=== PATIENT | female | born 1950 ===

== ENCOUNTER 2020-04-22 00:24 | Inpatient (IN) | payer MEDICARE ==
[2020-04-22] MEDS ORDERED: Albuterol 200 PUFF (6.7GM INHALER) ONE (01:14)
[2020-04-22] MEDS ORDERED: Azithromycin 500 MG VIAL ONE (02:32)
[2020-04-22 03:01] LABS: SARS-CoV-2 NAA Rapid Test DETECTED (NotDetected)
[2020-04-22] MEDS ORDERED: Albuterol 200 PUFF (6.7GM INHALER) INH PRN (04:54)
[2020-04-22] MEDS ORDERED: Ondansetron ODT 4 MG TAB SL PRN (05:00)
[2020-04-22] MEDS ORDERED: Acetaminophen 325 MG TAB PO PRN (05:00)
[2020-04-22] MEDS ORDERED: Ondansetron PF 4 MG/2 ML Vial IVP PRN (05:00)
[2020-04-22 05:40] VITALS: BMI 30.7
[2020-04-22 07:17] LABS: Troponin I 0.013 ng/mL (< 0.028)
--- NOTE | 2020-04-22 09:36 | CT ---
PRELIMINARY REPORT/[facility]/AFTER HOURS PROCEDURE CTA CHEST WITH INTRAVENOUS CONTRAST: CLINICAL HISTORY: A 70-year-old female patient presents to the ER as a transfer from the [facility] for COVID-1 9 pneumonia. The patient reports she has been having some coughing, shortness of breath, fever, body aches, chills for the last 2 to 3 days. TECHNIQUE: Axial CTA images of the chest with intravenous contrast. Three-dimensional MIP/volume rendered reform ations were performed. CONTRAST: With Isovue. COMPARISON: None provided. FINDINGS: PULMONARY ARTERIES: There is no intraluminal filling defect suspicious for PE. AORTA: No thoracic aortic aneurysm or dissection. LUNGS: Fairly extensive ground glass density throughout the lungs right greater than left compatible with the patient's history of Covid pneumonia. Some areas of mucus plugging also noted in the left lower lobe. PLEURAL SPACES: No pleural effusion. No pneumothorax. HEART AND MEDIASTINUM: No cardiomegaly. No significant pericardial effusion. LYMPH NODES: No lymphadenopathy. A few small calcified lymph nodes are noted in the right hilum. BONES: No focal osseous abnormality or acute fracture. CHEST WALL AND UPPER ABDOMEN: Images through the upper abdomen are unremarkable. The chest wall is un remarkable. Postsurgical changes status post fusion in the thoracic spine. IMPRESSION: Negative for pulmonary emboli. Airspace disease compatible with the patient's history of COVID pneum onia. ELECTRONICALLY SIGNED BY: Morris Camargo MD Apr 22, 2020 2:54:59 AM CDT This report is intended for review by the ordering physician only, in accordance of law. If you recei ve this report in error, please call [facility] at [phone]. FINAL REPORT EMERGENT AFTER HOURS CT PULMONARY ANGIOGRAM WITH IV CONTRAST AND 3D MIP RECONSTRUCTIONS: IMPRESSION: I agree with the preliminary interpretation. CODE QA POS: REFUGIO
--- NOTE | 2020-04-22 11:04 | PDOC.HHP ---
Hospitalist HPI - History of Present Illness SOB History of Present Illness: 70 YO F with a PMH of lymphoma, HLD who presented with complaints of feeling unwell, SOB, cough and fever x 1 week. Pt does not know if she came in contact w any COVID positive person but says she lives with her mother and interacts with her daughter and grand daughter (a health care worker) all who are symptomless but yet to take a COVID test. Pt has been having intermittent low grade fever, cough, ROSALES, diarrhea and SOB. Due to worsening symptoms, she was taken the ER and as noted to be hypoxic. CTA showed no PE but was positive for COVID PNA. She was then transferred to this hospital to further mgt. Hospitalist ROS - Review of Systems Constitutional: reports: fever, chills, sweats, weakness, malaise Eyes: denies: pain, vision change, conjunctivae inflammation, eyelid inflammation, redness, other ENT: denies: ear pain, ear discharge, nose pain, nose discharge, nose congestion, mouth pain, mouth swelling, throat pain, throat swelling, other Respiratory: reports: cough, dry, shortness of breath Cardiovascular: reports: chest pain Gastrointestinal: reports: nausea, diarrhea. denies: vomiting, abdominal pain, constipation, melena, hematochezia, other Musculoskeletal: denies: neck pain, shoulder pain, arm pain, back pain, hand pain, leg pain, foot pain, other Skin: denies: rash, lesions, josé, bruising, other Neurological: denies: weakness, numbness, incoordination, change in speech, confusion, seizures, other Hospitalist History - Past Medical History Source: patient Pulmonary: reports: high cholesterol Endocrine: reports: Diabetes - Past Surgical History Past Surgical History: reports: Other (Back surgery) - Family History Family History: reports: no pertinent history - Social History Smoking Status: Never smoker Alcohol: reports: None Drugs: reports: none Living Situation: With Family Domestic Violence: Negative Activity level: independent ambulation - Exam General Appearance: NAD, awake alert Eye: PERRL, anicteric sclera ENT: normocephalic atraumatic, no oropharyngeal lesions Neck: supple, symmetric, no JVD, no thyromegaly Heart: RRR, no murmur, no gallops, no rubs, normal peripheral pulses Respiratory: CTAB, no wheezes, no rales, no ronchi Gastrointestinal: soft, non-tender, non-distended, normal bowel sounds Extremities: no cyanosis, no clubbing, no edema Skin: no lesions, no rashes Neurological: cranial nerve grossly intact, no focal deficits Musculoskeletal: normal strength, no muscle wasting Psychiatric: normal affect, normal behavior, A&O x 3 Hospitalist Results - Labs Lab results: Troponin I 0.013 ng/mL (< 0.028) 04/22/20 06:39 Hospitalist H&P A/P - Problem (1) COVID-19 Code(s): U07.1 - COVID-19 Status: Acute Assessment and Plan: New diagnosis. Will cont abx, steroids, Vit C and D, Zinc, antitussives and nebs. Monitor for symp improvement. (2) Acute respiratory failure due to COVID-19 Code(s): U07.1 - COVID-19; J96.00 - ACUTE RESPIRATORY FAILURE, UNSP W HYPOXIA OR HYPERCAPNIA Status: Acute Assessment and Plan: Needing a lot of O2 at this time. Will cont O2, cont steroids and nebs. Encourage proning. Will consult Pulm if resp status gets worse. (3) Diabetes Code(s): E11.9 - TYPE 2 DIABETES MELLITUS WITHOUT COMPLICATIONS Status: Acute Qualifiers: Diabetes mellitus type: type 2 Diabetes mellitus complication status: without complication Assessment and Plan: Will expect BG to go higher. Will cover with SSI. (4) History of lymphoma Code(s): Z85.79 - PRSNL HX OF MALIG NEOPLM OF LYMPHOID, HEMATPOETC & REL TISS Status: Acute Assessment and Plan: No new issues. Pt can f/u with her Oncologist when d/c. (5) HLD (hyperlipidemia) Code(s): E78.5 - HYPERLIPIDEMIA, UNSPECIFIED Status: Acute Qualifiers: Hyperlipidemia type: unspecified Qualified Code(s): E78.5 - Hyperlipidemia, unspecified Assessment and Plan: Cont statins. (6) Diarrhea Code(s): R19.7 - DIARRHEA, UNSPECIFIED Status: Acute Assessment and Plan: Monitor for now, will send for stool tests. - Plan Plan: PPx: Lovenox. CODE: FULL. Dispo: Admit as outpt.
[2020-04-22] MEDS ORDERED: Fioricet 325/50/40 mg Tablet PO PRN (11:07)
[2020-04-22] MEDS ORDERED: Melatonin 3 MG TAB PO PRN (11:58)
[2020-04-22] MEDS: Piperacillin/Tazobactam 3.375 GM in Sodium Chloride 0.9% 100 ML IVPB SCH ×2 (14:34→20:13)
[2020-04-22] MEDS: Benzonatate 100 MG CAP PO SCH (14:35)
[2020-04-22] MEDS ORDERED: Iopamidol-370 76% 500 ML 1 ML ONE (15:19)
[2020-04-22 21:58] LABS: Hemoglobin 10.4 g/dL (12.0-16.0); Mean Corpuscular HGB CONC 35.1 g/dL (32.0-36.0); Mean Corpuscular Hemoglobin 34.7 pg (27.0-31.0); Mean Corpuscular Volume 98.9 fL (78.0-98.0); RBC Distribution Width 11.4 % (11.5-14.5); White Blood Cell (WBC) Count 3.6 thou/uL (4.8-10.8)
[2020-04-22 22:07] LABS: ALT (SGPT) 14 U/L (8-55); AST (SGOT) 32 U/L (5-34); Albumin 3.5 g/dL (3.4-4.8); Alkaline Phosphatase 68 U/L (40-110); Anion Gap 15 mmol/L (10-20); BUN (Urea Nitrogen) 17 mg/dL (9.8-20.1); Bilirubin, Total 0.3 mg/dL (0.2-1.2); Calc. Creatinine Clearance 70 mL/min (70-130); Calcium 8.8 mg/dL (7.8-10.44); Carbon Dioxide 24 mmol/L (23-31); Chloride 103 mmol/L (98-107); Estimated GFR-MDRD 64; Globulin 2.3 g/dL (2.4-3.5); Glucose 167 mg/dL (83-110); Magnesium 1.9 mg/dL (1.6-2.6); Potassium 3.3 mmol/L (3.5-5.1); Protein, Total 5.8 g/dL (6.0-8.3); Sodium 139 mmol/L (136-145)
[2020-04-22 22:08] LABS: Lactic Acid 1.9 mmol/L (0.5-2.2)
[2020-04-22 22:11] LABS: #Lymphocytes 0.3 thou/uL (1.20-3.40); #Monocytes 0.3 thou/uL (0.11-0.59); %Eosinophils 0.1 % (0.0-10.0); %Lymphocytes 9.1 % (21.0-51.0); %Monocytes 8.4 % (0.0-10.0); %Neutrophils 82.5 % (42.0-75.0); Mean Platelet Volume 9.8 fL (7.4-10.4); Platelet Count 53 thou/uL (130-400); Platelet Morphology Comment Appears Decreased
[2020-04-22] MEDS ORDERED: REMDESIVIR (EUA) 200 MG in Sodium Chloride 0.9% 250 ML 210 ML IV SCH (23:00)
[2020-04-22 23:11] LABS: Actual Bicarbonate (HCO3a) 25.8 mEq/L (22-28); Base Excess (BEa) 1.5 mEq/L (-2.0 to +3.0); CO2 Tension 39.4 mmHg (35.0-45.0); Calcium, Ionized (arterial) 1.21 mmol/L (1.12-1.30); Carboxyhemoglobin (COHb) 0.1 gm% (0.0-3.0); Hemoglobin (Hb) 10.5 g/dL (12.0-16.0); Potassium - ABG Lab 3.85 mmol/L (3.70-5.30); pH, Arterial 7.43 (7.35-7.45)
[2020-04-22 23:12] LABS: O2 Tension (PaO2), arterial 50.3 mmHg (> 70.0); Puncture Site RRA
[2020-04-23] MEDS: Benzonatate 100 MG CAP PO SCH ×4 (01:04→20:29)
[2020-04-23] MEDS: Enoxaparin Sodium 60 MG/0.6 ML SYRINGE SC SCH ×3 (01:05→22:52)
[2020-04-23] MEDS: metFORMIN 500 MG TAB PO SCH ×3 (02:56→20:29)
[2020-04-23] MEDS: Piperacillin/Tazobactam 3.375 GM in Sodium Chloride 0.9% 100 ML IVPB SCH ×3 (02:59→13:36)
[2020-04-23 04:05] LABS: #Lymphocytes 0.4 thou/uL (1.20-3.40); #Monocytes 0.3 thou/uL (0.11-0.59); #Neutrophils 3.3 thou/uL (1.40-6.50); %Basophils 0.4 % (0.0-1.0); %Eosinophils 0.1 % (0.0-10.0); %Lymphocytes 9.2 % (21.0-51.0); %Monocytes 6.4 % (0.0-10.0); %Neutrophils 83.9 % (42.0-75.0); Hemoglobin 10.5 g/dL (12.0-16.0); Mean Corpuscular HGB CONC 34.3 g/dL (32.0-36.0); Mean Corpuscular Hemoglobin 34.2 pg (27.0-31.0); Mean Corpuscular Volume 99.9 fL (78.0-98.0); Mean Platelet Volume 10.1 fL (7.4-10.4); Platelet Count 56 thou/uL (130-400); RBC Distribution Width 11.4 % (11.5-14.5); Red Blood Cell (RBC) Count 3.07 mill/uL (4.20-5.40); White Blood Cell (WBC) Count 3.9 thou/uL (4.8-10.8)
[2020-04-23 04:17] LABS: ALT (SGPT) 19 U/L (8-55); AST (SGOT) 34 U/L (5-34); Albumin 3.4 g/dL (3.4-4.8); Alkaline Phosphatase 68 U/L (40-110); Anion Gap 16 mmol/L (10-20); BUN (Urea Nitrogen) 16 mg/dL (9.8-20.1); Bilirubin, Total 0.3 mg/dL (0.2-1.2); Calc. Creatinine Clearance 74 mL/min (70-130); Calcium 8.9 mg/dL (7.8-10.44); Carbon Dioxide 26 mmol/L (23-31); Chloride 104 mmol/L (98-107); Estimated GFR-MDRD 69; Globulin 2.4 g/dL (2.4-3.5); Glucose 142 mg/dL (83-110); Potassium 3.5 mmol/L (3.5-5.1); Protein, Total 5.8 g/dL (6.0-8.3); Sodium 142 mmol/L (136-145)
[2020-04-23] MEDS ORDERED: Non-Formulary Item 1 EACH (Ascorbic Acid [Vitamin C] 1,000 MG Tablet) PO SCH (09:00)
[2020-04-23] MEDS ORDERED: Dexamethasone 20 MG/5 ML VIAL SLOW IVP SCH (09:00)
[2020-04-23] MEDS ORDERED: BIOTIN 5000 MCG PO SCH (09:00)
[2020-04-23] MEDS: Furosemide 20 MG/2 ML VIAL SLOW IVP SCH (09:35)
[2020-04-23] MEDS: Atorvastatin Calcium 40 MG TAB PO SCH (09:35)
[2020-04-23] MEDS: Citalopram 20 MG TAB PO SCH (09:35)
[2020-04-23] MEDS: Ascorbic Acid 500 mg Chewable Tablet PO SCH (09:35)
[2020-04-23] MEDS: Stress 600 With Zinc 1 TAB PO SCH (09:41)
[2020-04-23] MEDS: Cholecalciferol (Vitamin D3) 400 UNITS TAB PO SCH (09:41)
[2020-04-23] MEDS: Zinc Sulfate 220 MG CAP PO SCH (09:41)
[2020-04-23] MEDS: Dexamethasone 10 MG/ML VIAL SLOW IVP SCH (10:06)
--- NOTE | 2020-04-23 15:22 | PDOC.HOSPP ---
- Subjective Encounter Date: 04/23/20 Encounter Time: 15:21 Subjective: Rosenda Muse is a 70-year-old woman with a history of CLL admitted to the hospital for COVID-19 pneumonia. She currently is in respiratory failure and is requiring O2 supplementation via high flow. Pulmonary consult appreciated. We will continue O2 supplementation here and wean as tolerated. Prognosis is guarded at best. - Objective Vital Signs & Weight: Vital Signs (12 hours) Pulse Resp Pulse Ox 04/23/20 08:00 98 04/23/20 07:08 83 21 H 95 Weight Weight 167 lb 9.6 oz Most Recent Monitor Data Heart Rate from ECG 95 NIBP 108/62 NIBP BP-Mean 77 Respiration from ECG 18 SpO2 99 I&O: 04/22/20 04/23/20 04/24/20 07:59 06:59 06:59 Intake Total 830 Output Total 800 Balance 30 Result Diagrams: 04/23/20 03:40 04/23/20 03:40 Additional Labs: Accuchecks 04/23/20 04/23/20 10:36 06:12 POC Glucose 109 H 121 H Radiology Reviewed by me: Yes EKG Reviewed by me: Yes Hospitalist ROS - Review of Systems Constitutional: reports: fever, weakness Respiratory: reports: cough, shortness of breath, SOB with excertion, sputum, wheezing Cardiovascular: reports: edema Gastrointestinal: reports: nausea - Medication Medications: Active Medications Generic Name Dose Route Start Last Admin Trade Name Freq PRN Reason Stop Dose Admin Ascorbic Acid 1,000 mg 04/23/20 09:00 04/23/20 09:35 Ascorbic Acid 500 Mg Chewable Tablet PO 1,000 mg DAILY MADELINE Administration Atorvastatin Calcium 40 mg 04/23/20 09:00 04/23/20 09:35 Atorvastatin Calcium 40 Mg Tab PO 40 mg DAILY MADELINE Administration Benzonatate 100 mg 04/22/20 15:00 04/23/20 13:37 Benzonatate 100 Mg Cap PO 100 mg TID MADELINE Administration Cholecalciferol 2,000 units 04/23/20 09:00 04/23/20 09:41 Cholecalciferol (Vitamin D3) 400 Units Tab PO 2,000 units DAILY MADELINE Administration Citalopram Hydrobromide 40 mg 04/23/20 09:00 04/23/20 09:35 Citalopram 20 Mg Tab PO 40 mg DAILY MADELINE Administration Dexamethasone 6 mg 04/23/20 09:00 04/23/20 10:06 Dexamethasone 10 Mg/Ml Vial SLOW IVP 6 mg DAILY MADELINE Administration Enoxaparin Sodium 60 mg 04/22/20 21:00 04/23/20 09:35 Enoxaparin Sodium 60 Mg/0.6 Ml Syringe SC 60 mg 0900,2100 MADELINE Administration Furosemide 20 mg 04/23/20 09:00 04/23/20 09:35 Furosemide 20 Mg/2 Ml Vial SLOW IVP 20 mg DAILY MADELINE Administration Metformin HCl 500 mg 04/22/20 21:00 04/23/20 09:35 Metformin 500 Mg Tab PO 500 mg BID MADELINE Administration Multivitamins/Zinc 1 tab 04/23/20 09:00 04/23/20 09:41 Stress 600 With Zinc 1 Tab PO 1 tab DAILY MADELINE Administration Zinc Sulfate 220 mg 04/23/20 09:00 04/23/20 09:41 Zinc Sulfate 220 Mg Cap PO 220 mg DAILY MADELINE Administration - Exam General Appearance: awake alert, ill appearing Eye: PERRL ENT: normocephalic atraumatic, no oropharyngeal lesions, dry oral mucosa Neck: supple, symmetric, no lymphadenopathy Heart: RRR Respiratory: normal chest expansion, tachypneic, wheezes Gastrointestinal: soft, non-tender, non-distended, normal bowel sounds, no palpable masses, no hepatomegaly, no splenomegaly Musculoskeletal: normal tone, normal strength, generalized weakness Psychiatric: normal affect, A&O x 3 Hosp A/P (1) Acute respiratory failure due to COVID-19 Code(s): U07.1 - COVID-19; J96.00 - ACUTE RESPIRATORY FAILURE, UNSP W HYPOXIA OR HYPERCAPNIA Status: Acute Plan: She is requiring high flow nasal cannula now. We will continue this. (2) COVID-19 Code(s): U07.1 - COVID-19 Status: Acute Plan: Continue supportive care as above. (3) Diabetes Code(s): E11.9 - TYPE 2 DIABETES MELLITUS WITHOUT COMPLICATIONS Status: Acute Qualifiers: Diabetes mellitus type: type 2 Diabetes mellitus complication status: wit hout complication (4) Diarrhea Code(s): R19.7 - DIARRHEA, UNSPECIFIED Status: Acute (5) History of lymphoma Code(s): Z85.79 - PRSNL HX OF MALIG NEOPLM OF LYMPHOID, HEMATPOETC & REL TISS Status: Acute - Plan respiratory therapy, incentive spirometry #1. Acute hypoxic respiratory failure secondary to Covid pneumonia. She currently is on high flow nasal cannula. We will continue this for now. Her prognosis is guarded at best. 2. COVID-19 pneumonia. Continue supportive care, IV empiric antibiotics, zinc sulfate and vitamin C. 3. History of chronic lymphocytic leukemia. This is chronic. She appears to be in remission.
--- NOTE | 2020-04-23 18:33 | CON ---
DATE OF CONSULTATION: CONSULT REASON: COVID infection. HISTORY OF PRESENT ILLNESS: A 70-year-old, history of type 2 diabetes, lymphoma with prior bone marrow transplant, who has had respiratory symptoms for the past week approximately. She was admitted on the . At that time, it was stated that she was sick for 2 or 3 days. On arrival, she was on a non-rebreathing Venti mask and given inhalers Rocephin, Decadron. Initial findings, BP 120/50, pulse 98, temperature 99.3, O2 saturation 94 on 4 L. she was tachypneic, appeared uncomfortable. There was rhonchi in upper lobes and lower lobes as well. Heart exam normal. Other findings on admission, white cell count 3.6, hemoglobin 10.4, platelets 53, with 82% neutrophils. D-dimer 2.59. A pH of 7.43, pCO2 of 39, PO2 of 50. Sodium 139, creatinine 0.87. Liver profile normal. Albumin 3.5. SARS-COV RNA PCR positive. Chest CT with airspace disease, bilateral, quite extensive ground-glass densities throughout the lungs, right greater than left side. She is receiving inhalers, Decadron, and remdesivir. She also is on Zosyn. Currently she is awake. She is sitting in bed, lost her cellphone for some reason, feels more comfortable. No headaches. Mild dyspnea. Some cough. No abdominal pain. Voiding on her own at the bedside commode. No back pain, no joint symptoms. PAST MEDICAL HISTORY: Includes type 2 diabetes, lymphoma following bone marrow transplant, hyperlipidemia, has had laminectomy in the past. FAMILY HISTORY: Not pertinent. SOCIAL HISTORY: Never a smoker, lives in [place] with her mother. PHYSICAL EXAMINATION: VITAL SIGNS: Temperature max 98.3, BP 130/80, heart rate 109, respiratory rate 26, O2 saturation 98. She is on high-flow nasal cannula, it looks like 60 L/minute. LUNGS: With few scattered inspiratory crackles. No wheezing. HEENT: Ocular movements conjugate. Oral cavity somewhat dry. HEART: S1, S2, regular rate. ABDOMEN: Soft, not distended or tender. No ascites. No bladder distention. EXTREMITIES: No joint inflammatory activity. No edema. Moves all extremities equally. NEUROLOGIC: Oriented. Follows commands. LABORATORY DATA: The white cell count is now 3.9, hemoglobin 10.5, platelets 56,000, 82% neutrophils. Lymphocyte count 0.4. The CRP is down to 3.35. The ferritin is 4300, has not been repeated. ASSESSMENT: History of lymphoma, in remission, following bone marrow transplant a few years ago, type 2 diabetes with severe COVID infection, on high-flow nasal cannula O2. This is the 8th, 9th day of illness. She is on remdesivir and Decadron. She is on Zosyn as well as, probably can be discontinued. She is at high risk for further deterioration and we will continue monitoring daily inflammatory markers. She is on enoxaparin b.i.d. Job ID: [id number]
--- NOTE | 2020-04-23 20:52 | CON ---
DATE OF CONSULTATION: 04/23/2020 HISTORY OF PRESENT ILLNESS: The patient is a 70-year-old female, who presented to the [facility] Emergency Room with complaints of increasing shortness of breath, cough, and fever. While there, she was requiring high-flow non- rebreather face mask. COVID test was done and was reported to be positive. The patient's contact most likely is from the family, one of whom is a healthcare worker. The patient was transferred here and following ER assessment was initially admitted to the medical floor. She had already received steroids and azithromycin. She was initially on nasal oxygen, but during the late afternoon yesterday showed worsening saturation, especially with cough and had a slow recovery with addition of further oxygen. She was subsequently moved to the intensive care unit. Over the evening, she has been intermittently switched from BiPAP 10/5 with high-flow nasal cannula. SOCIAL HISTORY: The patient is a 70-year-old female. She does not smoke. ALLERGIES: SHE HAS NO REPORTED MEDICATION ALLERGIES. HOME MEDICATIONS: Include, 1. Metformin 500 mg b.i.d. 2. Atorvastatin 40 mg daily. 3. Citalopram 40 mg daily. PAST MEDICAL HISTORY: Remarkable for lymphoma, treated in the past with chemo and radiation therapy for cure. She has a history of diabetes and dyslipidemia. REVIEW OF SYSTEMS: Remarkable as above, otherwise negative. PHYSICAL EXAMINATION: VITAL SIGNS: Current blood pressure 117/66, heart rate 107. She is currently on high-flow nasal cannula 60 L at 90%, maintaining saturation of 98%. GENERAL: She is awake, but slightly sleepy. Answers questions appropriately. HEENT: She has no adenopathy. She has no oropharyngeal Meseret. LUNGS: Bilateral crackles without wheezes. HEART: Regular rate and rhythm. ABDOMEN: Soft. There is no organomegaly. She is obese. EXTREMITIES: Show no edema. She has no cyanosis or clubbing. She has no cords or tenderness. LABORATORY DATA: White count 3900, hemoglobin is 10.5 with hematocrit 30.6, and platelet count of 56,000. Chemistries include sodium 142, potassium 2.5, chloride 104, CO2 is 26, BUN 16, creatinine 0.6, glucose ranging from 120-170. Ferritin is high. Liver tests are negative. CRP is 3.5, albumin is 3.4. Her CT shows infiltrative findings consistent with COVID pneumonia. There is no pneumothorax. There is no effusion or mass. IMPRESSION: 1. COVID pneumonia with impending respiratory failure. The patient is 70 years old and has diabetes as well as a history of lymphoma. Although her lymphoma is in remission, this portends at least some degree of immune suppression. She is requiring high-flow nasal oxygen at 90% at this time and hence fairly limited reserve. 2. Diabetes. 3. History of lymphoma. PLAN: The patient is admitted to the intensive care unit. She is receiving remdesivir as well as other therapies directed at her COVID infection. We will continue current FiO2 support with plans to provide intubation if there is any worsening. We would certainly want to converse with the family before we head down that path. Additional interventions will be based on her clinical course in the Pulmonary Service. We will continue to follow. Job ID: [id number] [facility]
[2020-04-23] MEDS: REMDESIVIR (EUA) 100 MG in Sodium Chloride 0.9% 250 ML 230 ML IV SCH (22:54)
[2020-04-24 04:02] LABS: ALT (SGPT) 16 U/L (8-55); AST (SGOT) 28 U/L (5-34); Albumin 3.2 g/dL (3.4-4.8); Alkaline Phosphatase 60 U/L (40-110); Anion Gap 15 mmol/L (10-20); BUN (Urea Nitrogen) 23 mg/dL (9.8-20.1); Bilirubin, Total 0.4 mg/dL (0.2-1.2); CRP (Inflammatory) 5.07 mg/dL (= or < 0.5); Calc. Creatinine Clearance 80 mL/min (70-130); Calcium 8.2 mg/dL (7.8-10.44); Carbon Dioxide 26 mmol/L (23-31); Chloride 99 mmol/L (98-107); Estimated GFR-MDRD 75; Globulin 2.1 g/dL (2.4-3.5); Glucose 146 mg/dL (83-110); Potassium 3.2 mmol/L (3.5-5.1); Protein, Total 5.3 g/dL (6.0-8.3); Sodium 137 mmol/L (136-145)
[2020-04-24] MEDS: Citalopram 20 MG TAB PO SCH (09:24)
[2020-04-24] MEDS: metFORMIN 500 MG TAB PO SCH ×2 (09:24→21:21)
[2020-04-24] MEDS: Stress 600 With Zinc 1 TAB PO SCH (09:24)
[2020-04-24] MEDS: Benzonatate 100 MG CAP PO SCH ×3 (09:24→21:21)
[2020-04-24] MEDS: Zinc Sulfate 220 MG CAP PO SCH (09:24)
[2020-04-24] MEDS: Cholecalciferol (Vitamin D3) 400 UNITS TAB PO SCH (09:25)
[2020-04-24] MEDS: Atorvastatin Calcium 40 MG TAB PO SCH (09:25)
[2020-04-24] MEDS: Enoxaparin Sodium 60 MG/0.6 ML SYRINGE SC SCH (11:31)
--- NOTE | 2020-04-24 11:49 | PRG ---
DATE OF SERVICE: 04/24/2020 SUBJECTIVE: Rosenda Muse is a 70-year-old female with dutton positive pneumonia, transferred from elsewhere, who is on high-flow, talking on the phone, in mild distress. OBJECTIVE: VITAL SIGNS: Temperature 98, blood pressure 115/67, saturations are 100%, respirations 28, pulse 80. CHEST: No wheezing. No crackles. CARDIAC: Normal S1 and S2. No gallops. ABDOMEN: No masses. LABORATORY DATA: White count is 3.9, hemoglobin and hematocrit are 10 and 30, platelet count is 56,000. Chemistry profile is otherwise normal, BUN and creatinine are normal. Ferritin is elevated at 3000. BNP was 62. X-ray shows bilateral ground-glass, consistent with dutton positive pneumonia. ASSESSMENT: 1. Dutton positive pneumonia, on remdesivir. 2. Respiratory failure. 3. Severe thrombocytopenia. PLAN: I have added one bag of convalescent plasma. Continue remdesivir. If her platelet count drops any further, we may have to decrease her steroids. We will follow. Job ID: [id number]
[2020-04-24] MEDS: Ascorbic Acid 500 mg Chewable Tablet PO SCH (12:17)
[2020-04-24] MEDS: Furosemide 20 MG/2 ML VIAL SLOW IVP SCH (13:09)
[2020-04-24] MEDS: Dexamethasone 10 MG/ML VIAL SLOW IVP SCH (13:09)
[2020-04-24] MEDS: methylPREDNISolone Sod Succ 40 MG VIAL IVP SCH ×2 (13:10→17:00)
--- NOTE | 2020-04-24 14:25 | PDOC.HOSPP ---
- Subjective Encounter Date: 04/24/20 Encounter Time: 14:24 Subjective: Rosenda Muse is a 70-year-old female with a history of CLL admitted to the hospital for Covid pneumonia. She remains on high flow nasal cannula and she seems to be tolerating this so far. We appreciate pulmonary services ongoing evaluation. The patient looks comfortable on high flow nasal cannula. - Objective Vital Signs & Weight: Vital Signs (12 hours) Temp Pulse Ox 04/24/20 12:00 97.0 F L 04/24/20 08:35 99 04/24/20 04:00 98.1 F Weight Weight 167 lb 9.6 oz Most Recent Monitor Data Heart Rate from ECG 72 NIBP 112/67 NIBP BP-Mean 82 Respiration from ECG 32 SpO2 97 I&O: 04/23/20 04/24/20 04/25/20 06:59 06:59 06:59 Intake Total 2450 Output Total 4150 Balance -1700 Result Diagrams: 04/23/20 03:40 04/24/20 03:13 Additional Labs: Accuchecks 04/24/20 04/23/20 04/22/20 11:51 20:49 19:17 POC Glucose 119 H 158 H 204 H Radiology Reviewed by me: Yes EKG Reviewed by me: Yes Hospitalist ROS - Review of Systems Constitutional: reports: weakness, malaise Respiratory: reports: cough, dry, SOB with excertion, wheezing - Medication Medications: Active Medications Generic Name Dose Route Start Last Admin Trade Name Freq PRN Reason Stop Dose Admin Albuterol/Ipratropium 3 ml 04/24/20 13:00 04/24/20 14:07 Ipratropium/Albuterol Sulfate 3 Ml Neb NEB Not Given [id number] MADELINE Ascorbic Acid 1,000 mg 04/23/20 09:00 04/24/20 12:17 Ascorbic Acid 500 Mg Chewable Tablet PO 1,000 mg DAILY MADELINE Administration Atorvastatin Calcium 40 mg 04/23/20 09:00 04/24/20 09:25 Atorvastatin Calcium 40 Mg Tab PO 40 mg DAILY MADELINE Administration Benzonatate 100 mg 04/22/20 15:00 04/24/20 09:24 Benzonatate 100 Mg Cap PO 100 mg TID MADELINE Administration Cholecalciferol 2,000 units 04/23/20 09:00 04/24/20 09:25 Cholecalciferol (Vitamin D3) 400 Units Tab PO 2,000 units DAILY MADELINE Administration Citalopram Hydrobromide 40 mg 04/23/20 09:00 04/24/20 09:24 Citalopram 20 Mg Tab PO 40 mg DAILY MADELINE Administration Dexamethasone 6 mg 04/23/20 09:00 04/24/20 13:09 Dexamethasone 10 Mg/Ml Vial SLOW IVP 6 mg DAILY MADELINE Administration Furosemide 20 mg 04/23/20 09:00 04/24/20 13:09 Furosemide 20 Mg/2 Ml Vial SLOW IVP 20 mg DAILY MADELINE Administration Remdesivir 100 mg/ Sodium 250 mls @ 250 mls/hr 04/23/20 23:00 04/23/20 22:54 Chloride IV 04/26/20 23:59 250 mls Q24HR MADELINE Administration Metformin HCl 500 mg 04/22/20 21:00 04/24/20 09:24 Metformin 500 Mg Tab PO 500 mg BID MADELINE Administration Methylprednisolone Sodium Succinate 40 mg 04/24/20 12:00 04/24/20 13:10 Methylprednisolone Sod Succ 40 Mg Vial IVP 40 mg Q6HR MADELINE Administration Multivitamins/Zinc 1 tab 04/23/20 09:00 04/24/20 09:24 Stress 600 With Zinc 1 Tab PO 1 tab DAILY MADELINE Administration Zinc Sulfate 220 mg 04/23/20 09:00 04/24/20 09:24 Zinc Sulfate 220 Mg Cap PO 220 mg DAILY MADELINE Administration - Exam General Appearance: awake alert, ill appearing Eye: PERRL ENT: normocephalic atraumatic, no oropharyngeal lesions, moist mucosa Neck: supple, symmetric, no JVD, no thyromegaly, no lymphadenopathy Heart: RRR Respiratory: no rales, no ronchi, normal chest expansion, no tachypnea, wheezes Gastrointestinal: soft, non-tender, non-distended, normal bowel sounds, no palpable masses Extremities: no cyanosis, no clubbing, no edema Psychiatric: normal affect, normal behavior, A&O x 3, oriented to person, oriented to place, oriented to time Hosp A/P (1) Acute respiratory failure due to COVID-19 Code(s): U07.1 - COVID-19; J96.00 - ACUTE RESPIRATORY FAILURE, UNSP W HYPOXIA OR HYPERCAPNIA Status: Acute (2) COVID-19 Code(s): U07.1 - COVID-19 Status: Acute (3) Diabetes Code(s): E11.9 - TYPE 2 DIABETES MELLITUS WITHOUT COMPLICATIONS Status: Acute Qualifiers: Diabetes mellitus type: type 2 Diabetes mellitus complication status: without complication (4) Diarrhea Code(s): R19.7 - DIARRHEA, UNSPECIFIED Status: Resolved (5) History of lymphoma Code(s): Z85.79 - PRSNL HX OF MALIG NEOPLM OF LYMPHOID, HEMATPOETC & REL TISS Status: Chronic - Plan old records reviewed/req, continue antibiotics, PT/OT, respiratory therapy, incentive spirometry, out of bed/ambulate, DVT proph w/SCDs #1. Acute hypoxic respiratory failure secondary to Covid pneumonia. She currently is on high flow nasal cannula. We will continue this for now. Her prognosis is guarded at best. 04/24/2020. She remains on a high flow nasal cannula. She seems to be doing okay. We will continue this for now and wean as tolerated. 2. COVID-19 pneumonia. Continue supportive care, IV empiric antibiotics, zinc sulfate and vitamin C. 04/24/2020. We will continue empiric antibiotics. Continue supportive care for the Covid pneumonia. 3. History of chronic lymphocytic leukemia. This is chronic. She appears to be in remission.
[2020-04-24] MEDS: guaiFENesin/Codeine Phosphate 200 mg/20 mg 10 ml UD Cup PO PRN (18:16)
[2020-04-24] MEDS: Mometasone 200 MCG/Formoterol 5 MCG 120 PUFF INHALER INH SCH (18:30)
[2020-04-24] MEDS: Cefepime 1 GM in Sodium Chloride 0.9% 100 ML IVPB SCH (21:21)
[2020-04-24] MEDS: Enoxaparin Sodium 30 MG/0.3 ML SYRINGE SC SCH (21:22)
[2020-04-24] MEDS ORDERED: Dextrose 50% Abboject 50 ML SYRINGE SLOW IVP PRN (22:15)
[2020-04-24] MEDS ORDERED: Dextrose 5% in Water 1,000 ML IV PRN (22:15)
[2020-04-24] MEDS: REMDESIVIR (EUA) 100 MG in Sodium Chloride 0.9% 250 ML 230 ML IV SCH (23:11)
[2020-04-25] MEDS: methylPREDNISolone Sod Succ 40 MG VIAL IVP SCH ×4 (00:01→16:44)
[2020-04-25] MEDS: guaiFENesin/Codeine Phosphate 200 mg/20 mg 10 ml UD Cup PO PRN (03:34)
[2020-04-25 04:35] LABS: ALT (SGPT) 17 U/L (8-55); AST (SGOT) 24 U/L (5-34); Albumin 3.4 g/dL (3.4-4.8); Alkaline Phosphatase 74 U/L (40-110); Anion Gap 16 mmol/L (10-20); BUN (Urea Nitrogen) 22 mg/dL (9.8-20.1); Bilirubin, Total 0.5 mg/dL (0.2-1.2); CRP (Inflammatory) 3.83 mg/dL (= or < 0.5); Calc. Creatinine Clearance 80 mL/min (70-130); Calcium 8.7 mg/dL (7.8-10.44); Carbon Dioxide 28 mmol/L (23-31); Chloride 98 mmol/L (98-107); Estimated GFR-MDRD 75; Globulin 2.3 g/dL (2.4-3.5); Glucose 199 mg/dL (83-110); Potassium 3.5 mmol/L (3.5-5.1); Protein, Total 5.7 g/dL (6.0-8.3); Sodium 138 mmol/L (136-145)
[2020-04-25] MEDS: HumaLOG 300 UNITS/3 ML VIAL SC PRN ×3 (05:38→21:35)
[2020-04-25] MEDS: Cefepime 1 GM in Sodium Chloride 0.9% 100 ML IVPB SCH ×2 (07:42→21:15)
[2020-04-25] MEDS: Atorvastatin Calcium 40 MG TAB PO SCH (07:44)
[2020-04-25] MEDS: metFORMIN 500 MG TAB PO SCH ×2 (07:44→21:15)
[2020-04-25] MEDS: Dexamethasone 10 MG/ML VIAL SLOW IVP SCH (07:44)
[2020-04-25] MEDS: Benzonatate 100 MG CAP PO SCH ×3 (07:44→21:15)
[2020-04-25] MEDS: Ascorbic Acid 500 mg Chewable Tablet PO SCH (07:44)
[2020-04-25] MEDS: Citalopram 20 MG TAB PO SCH (07:45)
[2020-04-25] MEDS: Zinc Sulfate 220 MG CAP PO SCH (07:45)
[2020-04-25] MEDS: Cholecalciferol 1,000 UNITS (25 MCG) TAB PO SCH (07:45)
[2020-04-25] MEDS ORDERED: Furosemide 40 MG/4 ML VIAL SLOW IVP SCH (09:00)
--- NOTE | 2020-04-25 10:17 | RAD ---
PORTABLE CHEST: Date: 04/25/2020 HISTORY: COVID pneumonia. COMPARISON: 04/21/2020 exam. FINDINGS: The bilateral infiltrative lung changes show some worsening as compared to that exam. In particular, the left parahilar and upper lobe parenchymal changes and right lower lobe changes appear increased. Narvaez rods are in place. IMPRESSION: Worsening bilateral infiltrates. POS: UNIQUE
[2020-04-25] MEDS: Mometasone 200 MCG/Formoterol 5 MCG 120 PUFF INHALER INH SCH ×2 (11:49→18:30)
--- NOTE | 2020-04-25 11:52 | PRG ---
DATE OF SERVICE: 04/25/2020 SUBJECTIVE: Rosenda Muse remains in the MICU. A 70-year-old female on high-flow. OBJECTIVE: VITAL SIGNS: Temperature is 98, blood pressure 130/70, sats are 95%, pulse 73. I's and O's have been consistently negative. CHEST: Bilateral rhonchi, crackles. CARDIAC: Normal S1, S2. No gallops. ABDOMEN: Soft. LABORATORY DATA: D-dimer is 2.8. Platelet count is decreased. C-reactive protein is 3.8. X-ray shows extensive bilateral infiltrates and a markedly elevated left hemidiaphragm. IMPRESSION: Andres positive pneumonia, respiratory failure, worsening bilateral infiltrates. PLAN: I have ordered a BNP. It is unclear why she is getting a diuretic. She is still on high-dose steroids, empiric antibiotics, remdesivir, and convalescent plasma. Job ID: [id number]
--- NOTE | 2020-04-25 13:54 | PDOC.HOSPP ---
- Subjective Encounter Date: 04/25/20 Encounter Time: 13:54 Subjective: Ms. Rosenda Muse was seen and evaluated this morning. This is a 70-year-old who is being treated for Covid pneumonia. She was on high flow nasal cannula but she deteriorated earlier today and her saturations were going down prompting her being switched over to BiPAP. She is saturating well over 95% on the BiPAP. She is asking for sip of water. We appreciate pulmonary for their help. - Objective Vital Signs & Weight: Vital Signs (12 hours) Temp Resp Pulse Ox 04/25/20 11:40 93 L 04/25/20 08:25 90 L 04/25/20 08:00 98.9 F 100 04/25/20 04:55 98.0 F 96 04/25/20 04:00 24 H 93 L Weight Weight 167 lb 9.6 oz Most Recent Monitor Data Heart Rate from ECG 77 NIBP 129/82 NIBP BP-Mean 97 Respiration from ECG 25 SpO2 96 I&O: 04/24/20 04/25/20 04/26/20 06:59 06:59 06:59 Intake Total 2450 3076 Output Total 4150 3275 Balance -1700 -199 Result Diagrams: 04/23/20 03:40 04/25/20 03:27 Additional Labs: Accuchecks 04/25/20 04/24/20 04/24/20 05:19 21:28 17:48 POC Glucose 186 H 241 H 229 H Radiology Reviewed by me: Yes EKG Reviewed by me: Yes Hospitalist ROS - Review of Systems ROS unobtainable: due to mental status Constitutional: reports: sweats, weakness Eyes: reports: pain, conjunctivae inflammation Respiratory: reports: cough, dry, shortness of breath, SOB with excertion Cardiovascular: reports: paroxysmal noc. dyspnea - Medication Medications: Active Medications Generic Name Dose Route Start Last Admin Trade Name Freq PRN Reason Stop Dose Admin Albuterol/Ipratropium 3 ml 04/24/20 13:00 04/25/20 09:48 Ipratropium/Albuterol Sulfate 3 Ml Neb NEB Not Given [id number] MADELINE Ascorbic Acid 1,000 mg 04/23/20 09:00 04/25/20 07:44 Ascorbic Acid 500 Mg Chewable Tablet PO 1,000 mg DAILY MADELINE Administration Atorvastatin Calcium 40 mg 04/23/20 09:00 04/25/20 07:44 Atorvastatin Calcium 40 Mg Tab PO 40 mg DAILY MADELINE Administration Benzonatate 100 mg 04/22/20 15:00 04/25/20 07:44 Benzonatate 100 Mg Cap PO 100 mg TID MADELINE Administration Cholecalciferol 2,000 units 04/25/20 09:00 04/25/20 07:45 Cholecalciferol 1,000 Units (25 Mcg) Tab PO 2,000 units DAILY MADELINE Administration Citalopram Hydrobromide 40 mg 04/23/20 09:00 04/25/20 07:45 Citalopram 20 Mg Tab PO 40 mg DAILY MADELINE Administration Enoxaparin Sodium 30 mg 04/24/20 21:00 04/24/20 21:22 Enoxaparin Sodium 30 Mg/0.3 Ml Syringe SC 30 mg 2100 MADELINE Administration Guaifenesin/Codeine Phosphate 10 ml 04/22/20 10:55 04/25/20 03:34 Guaifenesin/Codeine Phosphate 200 Mg/20 Mg 10 Ml Ud Cup PO 10 ml Q6H PRN Administration Cough Remdesivir 100 mg/ Sodium 250 mls @ 250 mls/hr 04/23/20 23:00 04/24/20 23:11 Chloride IV 04/26/20 23:59 250 mls Q24HR MADELINE Administration Cefepime HCl 1 gm/ Sodium 100 mls @ 200 mls/hr 04/24/20 21:00 04/25/20 07:42 Chloride IVPB 100 mls Q12HR MADELINE Administration Insulin Human Lispro 0 units 04/24/20 22:15 04/25/20 11:07 Humalog 300 Units/3 Ml Vial SC 3 unit .MILD SLIDING SCALE PRN Administration Mild Correctional Scale Metformin HCl 500 mg 04/22/20 21:00 04/25/20 07:44 Metformin 500 Mg Tab PO 500 mg BID MADELINE Administration Methylprednisolone Sodium Succinate 40 mg 04/24/20 12:00 04/25/20 12:11 Methylprednisolone Sod Succ 40 Mg Vial IVP 40 mg Q6HR MADELINE Administration Mometasone Furoate/Formoterol Fumar 2 puff 04/24/20 18:30 04/25/20 11:49 Mometasone 200 Mcg/Formoterol 5 Mcg 120 Puff Inhaler INH Not Given BID-RT MADELINE Multivitamins/Zinc 1 tab 11/01/20 09:00 04/24/20 09:24 Stress 600 With Zinc 1 Tab PO 1 tab DAILY MADELINE Administration Sodium Chloride 10 ml 04/24/20 21:00 04/25/20 07:45 Flush - Normal Saline 10 Ml Syringe IVF 10 ml Q12HR MADELINE Administration Zinc Sulfate 220 mg 04/23/20 09:00 04/25/20 07:45 Zinc Sulfate 220 Mg Cap PO 220 mg DAILY MADELINE Administration - Exam General Appearance: awake alert, ill appearing Eye: PERRL ENT: normocephalic atraumatic, no oropharyngeal lesions, dry oral mucosa Neck: supple, symmetric, no lymphadenopathy Heart: RRR, no murmur Respiratory: CTAB, no rales, normal chest expansion, normal percussion, wheezes Gastrointestinal: soft, non-tender, non-distended, normal bowel sounds, no palpable masses Extremities: no cyanosis, no clubbing Skin: normal turgor Neurological: cranial nerve grossly intact, normal sensation to touch Musculoskeletal: normal tone, normal strength, no muscle wasting, generalized weakness, diffuse muscle atrophy Psychiatric: normal affect, oriented to person, oriented to place, oriented to time Hosp A/P (1) Acute respiratory failure due to COVID-19 Code(s): U07.1 - COVID-19; J96.00 - ACUTE RESPIRATORY FAILURE, UNSP W HYPOXIA OR HYPERCAPNIA Status: Acute (2) COVID-19 Code(s): U07.1 - COVID-19 Status: Acute (3) Diabetes Code(s): E11.9 - TYPE 2 DIABETES MELLITUS WITHOUT COMPLICATIONS Status: Acute Qualifiers: Diabetes mellitus type: type 2 Diabetes mellitus complication status: without complication (4) Diarrhea Code(s): R19.7 - DIARRHEA, UNSPECIFIED Status: Resolved (5) History of lymphoma Code(s): Z85.79 - PRSNL HX OF MALIG NEOPLM OF LYMPHOID, HEMATPOETC & REL TISS Status: Chronic - Plan old records reviewed/req, PT/OT, respiratory therapy, incentive spirometry, out of bed/ambulate, DVT proph w/SCDs #1. Acute hypoxic respiratory failure secondary to Covid pneumonia. She currently is on high flow nasal cannula. We will continue this for now. Her prognosis is guarded at best. 04/24/2020. She remains on a high flow nasal cannula. She seems to be doing okay. We will continue this for now and wean as tolerated. 05/22/2020. Unfortunately it appears that she deteriorated earlier today and is now on BiPAP. We appreciate pulmonary for the ongoing help. 2. COVID-19 pneumonia. Continue supportive care, IV empiric antibiotics, zinc sulfate and vitamin C. 04/24/2020. We will continue empiric antibiotics. Continue supportive care for the Covid pneumonia. 04/25/2020. She continues to tolerate her antibiotics well. Cultures are negative to date. Continue supportive care as above. 3. History of chronic lymphocytic leukemia. This is chronic. She appears to be in remission.
[2020-04-25] MEDS: Stress 600 With Zinc 1 TAB PO SCH (15:34)
--- NOTE | 2020-04-25 18:16 | PRG ---
DATE OF SERVICE: 04/25/2020 SUBJECTIVE: Ms. Muse has been back and forth from BiPAP to high-flow nasal cannula O2. Now, she is on BiPAP. Appears comfortable at rest. OBJECTIVE: VITAL SIGNS: She is afebrile. BP 140/85, heart rate 96, respiratory rate 22. LUNGS: She has symmetric air entry. HEART: S1 and S2, regular rate. ABDOMEN: Soft, not distended. Moves all extremities equally. No bladder distention. She has an indwelling Greene catheter. I's and O's have been negative for the past 2 days. LABORATORY DATA: White cell count 3.9, hemoglobin 10.5, platelets 56,000 with 82% neutrophils. Creatinine was 0.76. Liver profile normal. Ferritin 4200, which is higher than yesterday's. CRP is down to 3.83. She had a repeat chest x-ray with worsening of bilateral infiltrates. She is currently receiving inhalers, cefepime, remdesivir, methylprednisolone. ASSESSMENT AND DISCUSSION: Lymphoma, history in remission following bone marrow transplant few years ago. Type 2 diabetes, severe COVID infection, now on BiPAP, this is the 11th day of illness. Still having a pretty rough course and unfortunately high risk for further deterioration, requirement of intubation and mechanical ventilation. Job ID: [id number]
[2020-04-25] MEDS ORDERED: methylPREDNISolone Sod Succ/PF 125 MG/2 ML VIAL IVP SCH (21:00)
[2020-04-25] MEDS: Enoxaparin Sodium 30 MG/0.3 ML SYRINGE SC SCH (21:16)
[2020-04-25] MEDS: REMDESIVIR (EUA) 100 MG in Sodium Chloride 0.9% 250 ML 230 ML IV SCH (23:10)
[2020-04-26] MEDS: methylPREDNISolone Sod Succ 40 MG VIAL IVP SCH ×5 (00:46→23:31)
[2020-04-26 03:38] LABS: #Lymphocytes 0.3 thou/uL (1.20-3.40); #Monocytes 0.2 thou/uL (0.11-0.59); #Neutrophils 3.1 thou/uL (1.40-6.50); %Basophils 0.6 % (0.0-1.0); %Eosinophils 0.1 % (0.0-10.0); %Lymphocytes 7.5 % (21.0-51.0); %Monocytes 6.3 % (0.0-10.0); %Neutrophils 85.4 % (42.0-75.0); Hemoglobin 11.4 g/dL (12.0-16.0); Mean Corpuscular HGB CONC 35.4 g/dL (32.0-36.0); Mean Corpuscular Hemoglobin 34.9 pg (27.0-31.0); Mean Corpuscular Volume 98.6 fL (78.0-98.0); Mean Platelet Volume 9.9 fL (7.4-10.4); Platelet Count 43 thou/uL (130-400); RBC Distribution Width 11.2 % (11.5-14.5); Red Blood Cell (RBC) Count 3.27 mill/uL (4.20-5.40); White Blood Cell (WBC) Count 3.6 thou/uL (4.8-10.8)
[2020-04-26 04:13] LABS: ALT (SGPT) 14 U/L (8-55); AST (SGOT) 17 U/L (5-34); Albumin 3.3 g/dL (3.4-4.8); Alkaline Phosphatase 70 U/L (40-110); Anion Gap 15 mmol/L (10-20); BUN (Urea Nitrogen) 28 mg/dL (9.8-20.1); Bilirubin, Total 0.6 mg/dL (0.2-1.2); CRP (Inflammatory) 2.17 mg/dL (= or < 0.5); Calc. Creatinine Clearance 74 mL/min (70-130); Calcium 8.9 mg/dL (7.8-10.44); Carbon Dioxide 33 mmol/L (23-31); Chloride 95 mmol/L (98-107); Estimated GFR-MDRD 69; Globulin 2.3 g/dL (2.4-3.5); Glucose 212 mg/dL (83-110); Potassium 3.6 mmol/L (3.5-5.1); Protein, Total 5.6 g/dL (6.0-8.3); Sodium 139 mmol/L (136-145)
[2020-04-26] MEDS: HumaLOG 300 UNITS/3 ML VIAL SC PRN ×2 (06:15→20:11)
[2020-04-26] MEDS: Atorvastatin Calcium 40 MG TAB PO SCH (07:47)
[2020-04-26] MEDS: Benzonatate 100 MG CAP PO SCH ×4 (07:47→20:39)
[2020-04-26] MEDS: Cholecalciferol 1,000 UNITS (25 MCG) TAB PO SCH (07:47)
[2020-04-26] MEDS: Ascorbic Acid 500 mg Chewable Tablet PO SCH (07:47)
[2020-04-26] MEDS: metFORMIN 500 MG TAB PO SCH ×3 (07:47→20:41)
[2020-04-26] MEDS: Citalopram 20 MG TAB PO SCH (07:47)
[2020-04-26] MEDS: Zinc Sulfate 220 MG CAP PO SCH (07:47)
[2020-04-26] MEDS: Stress 600 With Zinc 1 TAB PO SCH (07:48)
[2020-04-26] MEDS: Cefepime 1 GM in Sodium Chloride 0.9% 100 ML IVPB SCH ×2 (07:48→20:10)
--- NOTE | 2020-04-26 09:59 | PRG ---
DATE OF SERVICE: 04/26/2020 SUBJECTIVE: Rosenda Muse is a 70-year-old female, remains in the MICU. OBJECTIVE: VITAL SIGNS: Temperature 97.5, pulse 86, blood pressure high-flow, she has been on BiPAP off and on. I's and O's have been consistently negative. CHEST: Bilateral rhonchi, crackles. CARDIAC: Normal S1, S2. No gallops. ABDOMEN: No masses. LABORATORY DATA: C-reactive protein is down to 2.7. BNP is normal, but a chest x-ray shows bilateral infiltrates. ASSESSMENT: Respiratory failure, dutton positive pneumonia, still on remdesivir. She has had plasma, steroids high doses, empiric antibiotics. PLAN: Continue supportive care. Prognosis still remains guarded. Job ID: [id number]
[2020-04-26] MEDS: Mometasone 200 MCG/Formoterol 5 MCG 120 PUFF INHALER INH SCH ×2 (11:13→19:37)
--- NOTE | 2020-04-26 15:49 | PDOC.HOSPP ---
- Subjective Encounter Date: 04/26/20 Encounter Time: 15:47 Subjective: Ms. Muse was seen and examined. 70-year-old admitted to the hospital with Covid pneumonia and respiratory failure. She has been tolerating high flow nasal cannula alternating with BiPAP. She is on empiric IV antibiotics. Her prognosis remains guarded at best. - Objective Vital Signs & Weight: Vital Signs (12 hours) Temp Pulse Pulse BP Pulse Ox Pulse Ox Pulse Ox 04/26/20 13:35 89 104 H 129/105 H 95 90 L 04/26/20 11:13 93 L 04/26/20 08:00 97.5 F L 95 04/26/20 04:01 97.9 F Weight Weight 167 lb 9.6 oz Most Recent Monitor Data Heart Rate from ECG 64 NIBP 131/78 NIBP BP-Mean 95 Respiration from ECG 23 SpO2 92 I&O: 04/25/20 04/26/20 04/27/20 06:59 06:59 06:59 Intake Total 3076 1600 Output Total 3275 2350 Balance -199 -750 Result Diagrams: 04/26/20 03:08 04/26/20 03:08 Additional Labs: Accuchecks 04/26/20 04/26/20 04/25/20 11:50 05:49 21:24 POC Glucose 210 H 220 H 224 H 04/25/20 04/25/20 16:50 11:05 POC Glucose 192 H 226 H Radiology Reviewed by me: Yes EKG Reviewed by me: Yes Hospitalist ROS - Review of Systems ROS unobtainable: due to mental status Constitutional: reports: fever, weakness Respiratory: reports: cough, shortness of breath, SOB with excertion Cardiovascular: reports: chest pain, paroxysmal noc. dyspnea Neurological: reports: weakness, numbness, change in speech, confusion - Medication Medications: Active Medications Generic Name Dose Route Start Last Admin Trade Name Freq PRN Reason Stop Dose Admin Albuterol/Ipratropium 3 ml 04/24/20 13:00 04/26/20 13:48 Ipratropium/Albuterol Sulfate 3 Ml Neb NEB Not Given [id number] MADELINE Atorvastatin Calcium 40 mg 04/23/20 09:00 04/26/20 07:47 Atorvastatin Calcium 40 Mg Tab PO 40 mg DAILY MADELINE Administration Benzonatate 100 mg 04/22/20 15:00 04/26/20 07:47 Benzonatate 100 Mg Cap PO 100 mg TID MADELINE Administration Cholecalciferol 2,000 units 04/25/20 09:00 04/26/20 07:47 Cholecalciferol 1,000 Units (25 Mcg) Tab PO 2,000 units DAILY MADELINE Administration Citalopram Hydrobromide 40 mg 04/23/20 09:00 04/26/20 07:47 Citalopram 20 Mg Tab PO 40 mg DAILY MADELINE Administration Enoxaparin Sodium 30 mg 04/24/20 21:00 04/25/20 21:16 Enoxaparin Sodium 30 Mg/0.3 Ml Syringe SC 30 mg 2100 MADELINE Administration Guaifenesin/Codeine Phosphate 10 ml 04/22/20 10:55 04/25/20 03:34 Guaifenesin/Codeine Phosphate 200 Mg/20 Mg 10 Ml Ud Cup PO 10 ml Q6H PRN Administration Cough Remdesivir 100 mg/ Sodium 250 mls @ 250 mls/hr 04/23/20 23:00 04/25/20 23:10 Chloride IV 04/26/20 23:59 250 mls Q24HR MADELINE Administration Cefepime HCl 1 gm/ Sodium 100 mls @ 200 mls/hr 04/24/20 21:00 04/26/20 07:48 Chloride IVPB 100 mls Q12HR MADELINE Administration Ascorbic Acid 1,500 mg/ Sodium 53 mls @ 100 mls/hr 04/26/20 12:00 04/26/20 12:10 Chloride IVPB 04/30/20 12:01 53 mls Q6HR MADELINE Administration Insulin Human Lispro 0 units 04/24/20 22:15 04/26/20 06:15 Humalog 300 Units/3 Ml Vial SC 3 unit .MILD SLIDING SCALE PRN Administration Mild Correctional Scale Insulin Human Lispro 0 units 04/24/20 22:15 04/25/20 21:35 Humalog 300 Units/3 Ml Vial SC 2 unit .BEDTIME SLIDING SC PRN Administration Bedtime Correctional Scale Metformin HCl 500 mg 04/22/20 21:00 04/26/20 07:47 Metformin 500 Mg Tab PO 500 mg BID MADELINE Administration Methylprednisolone Sodium Succinate 40 mg 04/24/20 12:00 04/26/20 12:09 Methylprednisolone Sod Succ 40 Mg Vial IVP 40 mg Q6HR MADELINE Administration Mometasone Furoate/Formoterol Fumar 2 puff 04/24/20 18:30 04/26/20 11:13 Mometasone 200 Mcg/Formoterol 5 Mcg 120 Puff Inhaler INH Not Given BID-RT MADELINE Multivitamins/Zinc 1 tab 04/23/20 09:00 04/26/20 07:48 Stress 600 With Zinc 1 Tab PO 1 tab DAILY MADELINE Administration Sodium Chloride 10 ml 04/24/20 21:00 04/26/20 07:49 Flush - Normal Saline 10 Ml Syringe IVF 10 ml Q12HR MADELINE Administration Zinc Sulfate 220 mg 04/23/20 09:00 04/26/20 07:47 Zinc Sulfate 220 Mg Cap PO 220 mg DAILY MADELINE Administration - Exam General Appearance: awake alert Eye: PERRL ENT: normocephalic atraumatic, moist mucosa Neck: supple, no lymphadenopathy Heart: RRR, normal peripheral pulses Respiratory: CTAB, normal chest expansion, no tachypnea Gastrointestinal: soft, non-tender, non-distended, normal bowel sounds Extremities: no cyanosis, no clubbing Neurological: cranial nerve grossly intact, normal sensation to touch, no weakness Musculoskeletal: normal tone, no muscle wasting, generalized weakness Psychiatric: normal affect, normal behavior, A&O x 3 Hosp A/P (1) Acute respiratory failure due to COVID-19 Code(s): U07.1 - COVID-19; J96.00 - ACUTE RESPIRATORY FAILURE, UNSP W HYPOXIA OR HYPERCAPNIA Status: Acute (2) COVID-19 Code(s): U07.1 - COVID-19 Status: Acute (3) Diabetes Code(s): E11.9 - TYPE 2 DIABETES MELLITUS WITHOUT COMPLICATIONS Status: Acute Qualifiers: Diabetes mellitus type: type 2 Diabetes mellitus complication status: wit hout complication (4) Diarrhea Code(s): R19.7 - DIARRHEA, UNSPECIFIED Status: Resolved (5) History of lymphoma Code(s): Z85.79 - PRSNL HX OF MALIG NEOPLM OF LYMPHOID, HEMATPOETC & REL TISS Status: Chronic - Plan old records reviewed/req, continue antibiotics, PT/OT, respiratory therapy, incentive spirometry, out of bed/ambulate #1. Acute hypoxic respiratory failure secondary to Covid pneumonia. She currently is on high flow nasal cannula. We will continue this for now. Her prognosis is guarded at best. 04/24/2020. She remains on a high flow nasal cannula. She seems to be doing okay. We will continue this for now and wean as tolerated. 04/25/2020. Unfortunately it appears that she deteriorated earlier today and is now on BiPAP. We appreciate pulmonary for the ongoing help. 04/26/2020. She is on BiPAP alternating with high flow nasal cannula. We will continue this for now. 2. COVID-19 pneumonia. Continue supportive care, IV empiric antibiotics, zinc sulfate and vitamin C. 04/24/2020. We will continue empiric antibiotics. Continue supportive care for the Covid pneumonia. 04/25/2020. She continues to tolerate her antibiotics well. Cultures are negative to date. Continue supportive care as above. 3. History of chronic lymphocytic leukemia. This is chronic. She appears to be in remission.
[2020-04-26] MEDS: Enoxaparin Sodium 30 MG/0.3 ML SYRINGE SC SCH (20:10)
[2020-04-26] MEDS: REMDESIVIR (EUA) 100 MG in Sodium Chloride 0.9% 250 ML 230 ML IV SCH (22:06)
[2020-04-27 03:42] LABS: #Lymphocytes 0.2 thou/uL (1.20-3.40); #Monocytes 0.3 thou/uL (0.11-0.59); #Neutrophils 3.7 thou/uL (1.40-6.50); %Basophils 0.2 % (0.0-1.0); %Eosinophils 0.3 % (0.0-10.0); %Lymphocytes 5.2 % (21.0-51.0); %Monocytes 6.1 % (0.0-10.0); %Neutrophils 88.3 % (42.0-75.0); Hemoglobin 11.2 g/dL (12.0-16.0); Mean Corpuscular HGB CONC 34.2 g/dL (32.0-36.0); Mean Corpuscular Hemoglobin 34.2 pg (27.0-31.0); Mean Platelet Volume 10.8 fL (7.4-10.4); Platelet Count 44 thou/uL (130-400); RBC Distribution Width 11.2 % (11.5-14.5); Red Blood Cell (RBC) Count 3.27 mill/uL (4.20-5.40); White Blood Cell (WBC) Count 4.2 thou/uL (4.8-10.8)
[2020-04-27 04:01] LABS: ALT (SGPT) 15 U/L (8-55); AST (SGOT) 19 U/L (5-34); Albumin 3.3 g/dL (3.4-4.8); Alkaline Phosphatase 67 U/L (40-110); Anion Gap 14 mmol/L (10-20); BUN (Urea Nitrogen) 32 mg/dL (9.8-20.1); Bilirubin, Total 0.5 mg/dL (0.2-1.2); CRP (Inflammatory) 1.27 mg/dL (= or < 0.5); Calc. Creatinine Clearance 78 mL/min (70-130); Calcium 8.6 mg/dL (7.8-10.44); Carbon Dioxide 30 mmol/L (23-31); Chloride 99 mmol/L (98-107); Estimated GFR-MDRD 73; Globulin 2.2 g/dL (2.4-3.5); Glucose 236 mg/dL (83-110); Potassium 3.6 mmol/L (3.5-5.1); Protein, Total 5.5 g/dL (6.0-8.3); Sodium 139 mmol/L (136-145)
[2020-04-27] MEDS: methylPREDNISolone Sod Succ 40 MG VIAL IVP SCH ×4 (05:00→23:27)
[2020-04-27] MEDS: HumaLOG 300 UNITS/3 ML VIAL SC PRN ×3 (05:50→20:38)
[2020-04-27] MEDS: Cholecalciferol 1,000 UNITS (25 MCG) TAB PO SCH (08:46)
[2020-04-27] MEDS: Cefepime 1 GM in Sodium Chloride 0.9% 100 ML IVPB SCH ×2 (08:46→20:19)
[2020-04-27] MEDS: metFORMIN 500 MG TAB PO SCH ×2 (08:46→20:20)
[2020-04-27] MEDS: Atorvastatin Calcium 40 MG TAB PO SCH (08:47)
[2020-04-27] MEDS: Citalopram 20 MG TAB PO SCH (08:47)
[2020-04-27] MEDS: Benzonatate 100 MG CAP PO SCH ×3 (08:47→20:20)
[2020-04-27] MEDS: Zinc Sulfate 220 MG CAP PO SCH (08:48)
[2020-04-27] MEDS: Stress 600 With Zinc 1 TAB PO SCH (08:48)
--- NOTE | 2020-04-27 09:42 | PRG ---
DATE OF SERVICE: 04/27/2020 SUBJECTIVE: Rosenda Muse is a 70-year-old female who is still very hypoxic. OBJECTIVE: VITAL SIGNS: Temperature 97, on BiPAP 80%, and sats are barely 94-95, blood pressure respiratory rate 18. CHEST: Crackles. CARDIAC: Normal S1, S2. ABDOMEN: No masses. LABORATORY DATA: BUN and creatinine normal. Ferritin is elevated. C-reactive protein is 1.27. Last chest x-ray showed extensive bilateral infiltrates. ASSESSMENT: Andres-positive pneumonia, respiratory failure. She has received high-dose steroids, remdesivir, as well as convalescent plasma. PROGNOSIS: Guarded. If condition gets worse, once again, she may need to be intubated. Job ID: [id number]
[2020-04-27] MEDS: Mometasone 200 MCG/Formoterol 5 MCG 120 PUFF INHALER INH SCH ×2 (11:15→17:36)
--- NOTE | 2020-04-27 17:10 | PDOC.HOSPP ---
- Subjective Encounter Date: 04/27/20 Encounter Time: 17:10 Subjective: Rosenda Muse was seen and evaluated this morning. I spoke to her daughter Harriet and updated her about goals of care. Ms. Muse continues to require high flow nasal cannula alternating with a BiPAP. She has COVID-19 pneumonia and is getting supportive care and antibiotic coverage. She has history of cancer and her prognosis appears to be guarded. - Objective Vital Signs & Weight: Weight Weight 167 lb 9.6 oz Most Recent Monitor Data Heart Rate from ECG 60 NIBP 153/82 NIBP BP-Mean 105 Respiration from ECG 24 SpO2 90 I&O: 04/26/20 04/27/20 04/28/20 06:59 06:59 06:59 Intake Total 1600 640 Output Total 2350 750 Balance -750 -110 Result Diagrams: 04/27/20 03:31 04/27/20 03:31 Additional Labs: Accuchecks 04/27/20 04/27/20 04/26/20 10:45 06:01 20:28 POC Glucose 283 H 172 H 224 H 04/26/20 17:32 POC Glucose 229 H Radiology Reviewed by me: Yes EKG Reviewed by me: Yes Hospitalist ROS - Review of Systems ROS unobtainable: due to mental status Constitutional: reports: fever Respiratory: reports: shortness of breath, SOB with excertion Cardiovascular: reports: chest pain, light headedness Gastrointestinal: reports: nausea Neurological: reports: weakness - Medication Medications: Active Medications Generic Name Dose Route Start Last Admin Trade Name Freq PRN Reason Stop Dose Admin Albuterol/Ipratropium 3 ml 04/24/20 13:00 04/27/20 14:56 Ipratropium/Albuterol Sulfate 3 Ml Neb NEB Not Given [id number] MADELINE Atorvastatin Calcium 40 mg 04/23/20 09:00 04/27/20 08:47 Atorvastatin Calcium 40 Mg Tab PO 40 mg DAILY MADELINE Administration Benzonatate 100 mg 04/22/20 15:00 04/27/20 14:13 Benzonatate 100 Mg Cap PO 100 mg TID MADELINE Administration Cholecalciferol 2,000 units 04/25/20 09:00 04/27/20 08:46 Cholecalciferol 1,000 Units (25 Mcg) Tab PO 2,000 units DAILY MADELINE Administration Citalopram Hydrobromide 40 mg 04/23/20 09:00 04/27/20 08:47 Citalopram 20 Mg Tab PO 40 mg DAILY MADELINE Administration Enoxaparin Sodium 30 mg 04/24/20 21:00 04/26/20 20:10 Enoxaparin Sodium 30 Mg/0.3 Ml Syringe SC 30 mg 2100 MADELINE Administration Guaifenesin/Codeine Phosphate 10 ml 04/22/20 10:55 04/25/20 03:34 Guaifenesin/Codeine Phosphate 200 Mg/20 Mg 10 Ml Ud Cup PO 10 ml Q6H PRN Administration Cough Cefepime HCl 1 gm/ Sodium 100 mls @ 200 mls/hr 04/24/20 21:00 04/27/20 08:46 Chloride IVPB 100 mls Q12HR MADELINE Administration Ascorbic Acid 1,500 mg/ Sodium 53 mls @ 100 mls/hr 04/26/20 12:00 04/27/20 14:13 Chloride IVPB 04/30/20 12:01 53 mls Q6HR MADELINE Administration Insulin Human Lispro 0 units 04/24/20 22:15 04/27/20 11:25 Humalog 300 Units/3 Ml Vial SC 4 unit .MILD SLIDING SCALE PRN Administration Mild Correctional Scale Insulin Human Lispro 0 units 04/24/20 22:15 04/26/20 20:11 Humalog 300 Units/3 Ml Vial SC 2 unit .BEDTIME SLIDING SC PRN Administration Bedtime Correctional Scale Metformin HCl 500 mg 04/22/20 21:00 04/27/20 08:46 Metformin 500 Mg Tab PO 500 mg BID MADELINE Administration Methylprednisolone Sodium Succinate 40 mg 04/24/20 12:00 04/27/20 11:26 Methylprednisolone Sod Succ 40 Mg Vial IVP 40 mg Q6HR MADELINE Administration Mometasone Furoate/Formoterol Fumar 2 puff 04/24/20 18:30 04/27/20 11:15 Mometasone 200 Mcg/Formoterol 5 Mcg 120 Puff Inhaler INH Not Given BID-RT MADELINE Multivitamins/Zinc 1 tab 04/23/20 09:00 04/27/20 08:48 Stress 600 With Zinc 1 Tab PO 1 tab DAILY MADELINE Administration Sodium Chloride 10 ml 04/24/20 21:00 04/27/20 08:48 Flush - Normal Saline 10 Ml Syringe IVF 10 ml Q12HR MADELINE Administration Zinc Sulfate 220 mg 04/23/20 09:00 04/27/20 08:48 Zinc Sulfate 220 Mg Cap PO 220 mg DAILY MADELINE Administration - Exam General Appearance: NAD, ill appearing Eye: PERRL ENT: normocephalic atraumatic, no oropharyngeal lesions, moist mucosa Neck: supple, symmetric Heart: RRR, no murmur Respiratory: CTAB, no wheezes, normal chest expansion, normal percussion Gastrointestinal: soft, non-tender, normal bowel sounds, no splenomegaly Neurological: cranial nerve grossly intact, normal sensation to touch, no wea kness Psychiatric: normal affect, normal behavior, A&O x 3, oriented to person Hosp A/P (1) Acute respiratory failure due to COVID-19 Code(s): U07.1 - COVID-19; J96.00 - ACUTE RESPIRATORY FAILURE, UNSP W HYPOXIA OR HYPERCAPNIA Status: Acute Plan: Secondary to Covid. She is still requiring high flow nasal cannula alternating with BiPAP. We will continue this and wean as tolerated. (2) COVID-19 Code(s): U07.1 - COVID-19 Status: Acute Plan: Continue supportive care. (3) Diabetes Code(s): E11.9 - TYPE 2 DIABETES MELLITUS WITHOUT COMPLICATIONS Status: Acute Qualifiers: Diabetes mellitus type: type 2 Diabetes mellitus complication status: w ithout complication (4) Diarrhea Code(s): R19.7 - DIARRHEA, UNSPECIFIED Status: Resolved (5) History of lymphoma Code(s): Z85.79 - PRSNL HX OF MALIG NEOPLM OF LYMPHOID, HEMATPOETC & REL TISS Status: Chronic - Plan #1. Acute hypoxic respiratory failure secondary to Covid pneumonia. She currently is on high flow nasal cannula. We will continue this for now. Her prognosis is guarded at best. 04/24/2020. She remains on a high flow nasal cannula. She seems to be doing okay. We will continue this for now and wean as tolerated. 04/25/2020. Unfortunately it appears that she deteriorated earlier today and is now on BiPAP. We appreciate pulmonary for the ongoing help. 04/26/2020. She is on BiPAP alternating with high flow nasal cannula. We will continue this for now. 2. COVID-19 pneumonia. Continue supportive care, IV empiric antibiotics, zinc sulfate and vitamin C. 04/24/2020. We will continue empiric antibiotics. Continue supportive care for the Covid pneumonia. 04/25/2020. She continues to tolerate her antibiotics well. Cultures are negative to date. Continue supportive care as above. 3. History of chronic lymphocytic leukemia. This is chronic. She appears to be in remission.
[2020-04-27] MEDS: Enoxaparin Sodium 30 MG/0.3 ML SYRINGE SC SCH (20:20)
[2020-04-28 04:17] LABS: Anion Gap 14 mmol/L (10-20); BUN (Urea Nitrogen) 32 mg/dL (9.8-20.1); Calc. Creatinine Clearance 79 mL/min (70-130); Calcium 8.5 mg/dL (7.8-10.44); Carbon Dioxide 30 mmol/L (23-31); Chloride 99 mmol/L (98-107); Estimated GFR-MDRD 74; Glucose 253 mg/dL (83-110); Potassium 3.6 mmol/L (3.5-5.1); Sodium 139 mmol/L (136-145)
[2020-04-28 04:22] LABS: #Lymphocytes 0.2 thou/uL (1.20-3.40); #Monocytes 0.2 thou/uL (0.11-0.59); #Neutrophils 4.7 thou/uL (1.40-6.50); %Basophils 0.1 % (0.0-1.0); %Eosinophils 0.2 % (0.0-10.0); %Monocytes 4.1 % (0.0-10.0); %Neutrophils 92.5 % (42.0-75.0); Hemoglobin 10.6 g/dL (12.0-16.0); Mean Corpuscular HGB CONC 34.5 g/dL (32.0-36.0); Mean Corpuscular Hemoglobin 34.8 pg (27.0-31.0); Mean Platelet Volume 10.5 fL (7.4-10.4); Platelet Count 38 thou/uL (130-400); RBC Distribution Width 11.1 % (11.5-14.5); Red Blood Cell (RBC) Count 3.04 mill/uL (4.20-5.40)
[2020-04-28] MEDS: Mometasone 200 MCG/Formoterol 5 MCG 120 PUFF INHALER INH SCH ×2 (06:45→20:28)
[2020-04-28] MEDS: methylPREDNISolone Sod Succ 40 MG VIAL IVP SCH ×3 (06:50→17:29)
[2020-04-28] MEDS: HumaLOG 300 UNITS/3 ML VIAL SC PRN ×2 (06:54→20:26)
[2020-04-28] MEDS: Atorvastatin Calcium 40 MG TAB PO SCH (07:48)
[2020-04-28] MEDS: metFORMIN 500 MG TAB PO SCH ×2 (07:48→20:28)
[2020-04-28] MEDS: Stress 600 With Zinc 1 TAB PO SCH (07:48)
[2020-04-28] MEDS: Cholecalciferol 1,000 UNITS (25 MCG) TAB PO SCH (07:48)
[2020-04-28] MEDS: Zinc Sulfate 220 MG CAP PO SCH (07:48)
[2020-04-28] MEDS: Citalopram 20 MG TAB PO SCH (07:48)
[2020-04-28] MEDS: Benzonatate 100 MG CAP PO SCH ×3 (07:48→20:28)
[2020-04-28] MEDS: Cefepime 1 GM in Sodium Chloride 0.9% 100 ML IVPB SCH ×2 (07:48→20:26)
--- NOTE | 2020-04-28 09:43 | PRG ---
DATE OF SERVICE: 04/28/2020 SUBJECTIVE: Rosenda Muse remains in the MICU between high-flow and CPAP. OBJECTIVE: VITAL SIGNS: Pulse 86, sats are 96% on BiPAP, 80% FiO2, blood pressure 174/99. CHEST: Bilateral crackles. CARDIAC: Normal S1, S2. No gallops. ABDOMEN: No masses. LABORATORY DATA: blood sugar is unremarkable. IMPRESSION: Andres positive pneumonia, respiratory failure, markedly abnormal chest x-ray. PLAN: She has received all treatment, remdesivir, plasma, antibiotics, steroids. I see no improvement in overall pulmonary status. She is a full code. She may get intubated if she gets worse. Job ID: [id number]
--- NOTE | 2020-04-28 15:58 | PDOC.HOSPP ---
- Subjective Encounter Date: 04/28/20 Encounter Time: 15:55 Subjective: Ms. Muse is seen and evaluated. This 70-year-old woman was admitted for respiratory failure and Covid pneumonia. She is on high flow nasal cannula alternating with a BiPAP. Pulmonary services is following her as well. - Objective Vital Signs & Weight: Vital Signs (12 hours) Temp Pulse Resp Pulse Ox 04/28/20 14:25 84 24 H 94 L 04/28/20 09:07 66 22 H 96 04/28/20 08:00 98.5 F 95 04/28/20 04:00 98.7 F Weight Weight 167 lb 9.6 oz Most Recent Monitor Data Heart Rate from ECG 63 NIBP 149/86 NIBP BP-Mean 107 Respiration from ECG 22 SpO2 94 I&O: 04/27/20 04/28/20 04/29/20 06:59 06:59 06:59 Intake Total 640 370 Output Total 750 975 Balance -110 -605 Result Diagrams: 04/28/20 03:45 04/28/20 03:45 Additional Labs: Accuchecks 04/28/20 04/27/20 04/27/20 07:05 20:50 17:14 POC Glucose 249 H 223 H 205 H Radiology Reviewed by me: Yes EKG Reviewed by me: Yes Hospitalist ROS - Review of Systems ROS unobtainable: due to mental status Constitutional: reports: fever Respiratory: reports: cough, shortness of breath, SOB with excertion, pleuritic pain Cardiovascular: reports: chest pain Gastrointestinal: reports: nausea Genitourinary: reports: dysuria Neurological: reports: weakness - Medication Medications: Active Medications Generic Name Dose Route Start Last Admin Trade Name Freq PRN Reason Stop Dose Admin Albuterol/Ipratropium 3 ml 04/24/20 13:00 04/28/20 13:13 Ipratropium/Albuterol Sulfate 3 Ml Neb NEB Not Given [id number] MADELINE Atorvastatin Calcium 40 mg 04/23/20 09:00 04/28/20 07:48 Atorvastatin Calcium 40 Mg Tab PO 40 mg DAILY MADELINE Administration Benzonatate 100 mg 04/22/20 15:00 04/28/20 13:13 Benzonatate 100 Mg Cap PO Not Given TID MADELINE Cholecalciferol 2,000 units 04/25/20 09:00 04/28/20 07:48 Cholecalciferol 1,000 Units (25 Mcg) Tab PO 2,000 units DAILY MADELINE Administration Citalopram Hydrobromide 40 mg 04/23/20 09:00 04/28/20 07:48 Citalopram 20 Mg Tab PO 40 mg DAILY MADELINE Administration Guaifenesin/Codeine Phosphate 10 ml 04/22/20 10:55 04/25/20 03:34 Guaifenesin/Codeine Phosphate 200 Mg/20 Mg 10 Ml Ud Cup PO 10 ml Q6H PRN Administration Cough Cefepime HCl 1 gm/ Sodium 100 mls @ 200 mls/hr 04/24/20 21:00 04/28/20 07:48 Chloride IVPB 100 mls Q12HR MADELINE Administration Ascorbic Acid 1,500 mg/ Sodium 53 mls @ 100 mls/hr 04/26/20 12:00 04/28/20 11:23 Chloride IVPB 04/30/20 12:01 53 mls Q6HR MADELINE Administration Insulin Human Lispro 0 units 04/24/20 22:15 04/28/20 06:54 Humalog 300 Units/3 Ml Vial SC 3 unit .MILD SLIDING SCALE PRN Administration Mild Correctional Scale Insulin Human Lispro 0 units 04/24/20 22:15 04/27/20 20:38 Humalog 300 Units/3 Ml Vial SC 2 unit .BEDTIME SLIDING SC PRN Administration Bedtime Correctional Scale Metformin HCl 500 mg 04/22/20 21:00 04/28/20 07:48 Metformin 500 Mg Tab PO 500 mg BID MADELINE Administration Methylprednisolone Sodium Succinate 40 mg 04/24/20 12:00 04/28/20 11:23 Methylprednisolone Sod Succ 40 Mg Vial IVP 40 mg Q6HR MADELINE Administration Mometasone Furoate/Formoterol Fumar 2 puff 04/24/20 18:30 04/28/20 06:45 Mometasone 200 Mcg/Formoterol 5 Mcg 120 Puff Inhaler INH Not Given BID-RT MADELINE Multivitamins/Zinc 1 tab 04/23/20 09:00 04/28/20 07:48 Stress 600 With Zinc 1 Tab PO 1 tab DAILY MADELINE Administration Sodium Chloride 10 ml 04/24/20 21:00 04/28/20 07:49 Flush - Normal Saline 10 Ml Syringe IVF 10 ml Q12HR MADELINE Administration Zinc Sulfate 220 mg 04/23/20 09:00 04/28/20 07:48 Zinc Sulfate 220 Mg Cap PO 220 mg DAILY MADELINE Administration - Exam General Appearance: awake alert, ill appearing Eye: PERRL ENT: normocephalic atraumatic, moist mucosa Neck: supple, no lymphadenopathy Heart: RRR, normal peripheral pulses Respiratory: CTAB, no wheezes, no rales, no ronchi, normal chest expansion Gastrointestinal: soft, non-tender, non-distended, normal bowel sounds Extremities: no cyanosis Skin: normal turgor Neurological: cranial nerve grossly intact, normal sensation to touch Musculoskeletal: normal tone, normal strength Psychiatric: normal affect, normal behavior, A&O x 3 Hosp A/P (1) Acute respiratory failure due to COVID-19 Code(s): U07.1 - COVID-19; J96.00 - ACUTE RESPIRATORY FAILURE, UNSP W HYPOXIA OR HYPERCAPNIA Status: Acute (2) COVID-19 Code(s): U07.1 - COVID-19 Status: Acute (3) Diabetes Code(s): E11.9 - TYPE 2 DIABETES MELLITUS WITHOUT COMPLICATIONS Status: Acute Qualifiers: Diabetes mellitus type: type 2 Diabetes mellitus complication status: without complication (4) Diarrhea Code(s): R19.7 - DIARRHEA, UNSPECIFIED Status: Resolved (5) History of lymphoma Code(s): Z85.79 - PRSNL HX OF MALIG NEOPLM OF LYMPHOID, HEMATPOETC & REL TISS Status: Chronic - Plan #1. Acute hypoxic respiratory failure secondary to Covid pneumonia. She currently is on high flow nasal cannula. We will continue this for now. Her prognosis is guarded at best. 04/24/2020. She remains on a high flow nasal cannula. She seems to be doing okay. We will continue this for now and wean as tolerated. 04/25/2020. Unfortunately it appears that she deteriorated earlier today and is now on BiPAP. We appreciate pulmonary for the ongoing help. 04/26/2020. She is on BiPAP alternating with high flow nasal cannula. We will continue this for now. 2. COVID-19 pneumonia. Continue supportive care, IV empiric antibiotics, zinc sulfate and vitamin C. 04/24/2020. We will continue empiric antibiotics. Continue supportive care for the Covid pneumonia. 04/25/2020. She continues to tolerate her antibiotics well. Cultures are negative to date. Continue supportive care as above. 3. History of chronic lymphocytic leukemia. This is chronic. She appears to be in remission.
[2020-04-29] MEDS: methylPREDNISolone Sod Succ 40 MG VIAL IVP SCH ×5 (00:11→23:42)
[2020-04-29 03:48] LABS: #Lymphocytes 0.3 thou/uL (1.20-3.40); #Monocytes 0.4 thou/uL (0.11-0.59); #Neutrophils 7.3 thou/uL (1.40-6.50); %Eosinophils 0.1 % (0.0-10.0); %Lymphocytes 3.4 % (21.0-51.0); %Monocytes 4.7 % (0.0-10.0); %Neutrophils 91.8 % (42.0-75.0); Hemoglobin 11.5 g/dL (12.0-16.0); Mean Corpuscular HGB CONC 35.9 g/dL (32.0-36.0); Mean Corpuscular Hemoglobin 35.4 pg (27.0-31.0); Mean Corpuscular Volume 98.4 fL (78.0-98.0); Mean Platelet Volume 10.5 fL (7.4-10.4); Platelet Count 41 thou/uL (130-400); RBC Distribution Width 11.2 % (11.5-14.5); Red Blood Cell (RBC) Count 3.26 mill/uL (4.20-5.40); White Blood Cell (WBC) Count 7.9 thou/uL (4.8-10.8)
[2020-04-29] MEDS: Benzocaine (Dental) 7 GM TUBE TOP PRN (06:01)
[2020-04-29] MEDS: HumaLOG 300 UNITS/3 ML VIAL SC PRN (06:04)
[2020-04-29] MEDS: Mometasone 200 MCG/Formoterol 5 MCG 120 PUFF INHALER INH SCH ×2 (07:18→18:16)
[2020-04-29] MEDS: Zinc Sulfate 220 MG CAP PO SCH (07:55)
[2020-04-29] MEDS: Citalopram 20 MG TAB PO SCH (07:55)
[2020-04-29] MEDS: Saccharomyces boulardii 250 MG CAP PO SCH (07:55)
[2020-04-29] MEDS: Stress 600 With Zinc 1 TAB PO SCH (07:55)
[2020-04-29] MEDS: metFORMIN 500 MG TAB PO SCH ×2 (07:55→20:37)
[2020-04-29] MEDS: Benzonatate 100 MG CAP PO SCH ×3 (07:55→20:36)
[2020-04-29] MEDS: Cefepime 1 GM in Sodium Chloride 0.9% 100 ML IVPB SCH ×2 (07:55→20:36)
[2020-04-29] MEDS: Cholecalciferol 1,000 UNITS (25 MCG) TAB PO SCH (07:55)
[2020-04-29] MEDS: Atorvastatin Calcium 40 MG TAB PO SCH (07:56)
[2020-04-29] MEDS ORDERED: Ipratropium/Albuterol Sulfate 4 GM AER IH PRN (09:07)
--- NOTE | 2020-04-29 16:31 | PDOC.HOSPP ---
- Subjective Encounter Date: 04/29/20 Encounter Time: 16:29 Subjective: Ms. Muse was seen today in follow-up of respiratory failure due to COVID pneumonia. Her main concern is that her mouth is dry, and that she wants to come off the BiPAP. - Objective Vital Signs & Weight: Vital Signs (12 hours) Temp Pulse Ox 04/29/20 08:00 98.7 F 97 Weight Weight 167 lb 9.6 oz Most Recent Monitor Data Heart Rate from ECG 80 NIBP 187/91 NIBP BP-Mean 123 Respiration from ECG 21 SpO2 100 I&O: 04/28/20 04/29/20 04/30/20 06:59 06:59 06:59 Intake Total 370 930 Output Total 975 800 Balance -605 130 Result Diagrams: 04/29/20 03:23 04/28/20 03:45 Additional Labs: Accuchecks 04/29/20 04/28/20 04/28/20 06:14 20:21 17:57 POC Glucose 197 H 227 H 217 H Hospitalist ROS - Medication Medications: Active Medications Generic Name Dose Route Start Last Admin Trade Name Freq PRN Reason Stop Dose Admin Atorvastatin Calcium 40 mg 04/23/20 09:00 04/29/20 07:56 Atorvastatin Calcium 40 Mg Tab PO 40 mg DAILY MADELINE Administration Benzocaine 1 gm 04/29/20 02:47 04/29/20 06:01 Benzocaine (Dental) 20% 10 Gm Tube TOP 1 gm DAILYPRN PRN Administration Topical Anesthetic Benzonatate 100 mg 04/22/20 15:00 04/29/20 14:35 Benzonatate 100 Mg Cap PO Not Given TID MADELINE Cholecalciferol 2,000 units 04/25/20 09:00 04/29/20 07:55 Cholecalciferol 1,000 Units (25 Mcg) Tab PO 2,000 units DAILY MADELINE Administration Citalopram Hydrobromide 40 mg 04/23/20 09:00 04/29/20 07:55 Citalopram 20 Mg Tab PO 40 mg DAILY MADELINE Administration Guaifenesin/Codeine Phosphate 10 ml 04/22/20 10:55 04/25/20 03:34 Guaifenesin/Codeine Phosphate 200 Mg/20 Mg 10 Ml Ud Cup PO 10 ml Q6H PRN Administration Cough Cefepime HCl 1 gm/ Sodium 100 mls @ 200 mls/hr 04/24/20 21:00 04/29/20 07:55 Chloride IVPB 100 mls Q12HR MADELINE Administration Ascorbic Acid 1,500 mg/ Sodium 53 mls @ 100 mls/hr 04/26/20 12:00 04/29/20 13:06 Chloride IVPB 04/30/20 12:01 53 mls Q6HR MADELINE Administration Insulin Human Lispro 0 units 04/24/20 22:15 04/29/20 06:04 Humalog 300 Units/3 Ml Vial SC 2 unit .MILD SLIDING SCALE PRN Administration Mild Correctional Scale Insulin Human Lispro 0 units 04/24/20 22:15 04/28/20 20:26 Humalog 300 Units/3 Ml Vial SC 2 unit .BEDTIME SLIDING SC PRN Administration Bedtime Correctional Scale Metformin HCl 500 mg 04/22/20 21:00 04/29/20 07:55 Metformin 500 Mg Tab PO 500 mg BID MADELINE Administration Methylprednisolone Sodium Succinate 40 mg 04/24/20 12:00 04/29/20 13:06 Methylprednisolone Sod Succ 40 Mg Vial IVP 40 mg Q6HR MADELINE Administration Mometasone Furoate/Formoterol Fumar 2 puff 04/24/20 18:30 04/29/20 07:18 Mometasone 200 Mcg/Formoterol 5 Mcg 120 Puff Inhaler INH Not Given BID-RT MADELINE Multivitamins/Zinc 1 tab 04/23/20 09:00 04/29/20 07:55 Stress 600 With Zinc 1 Tab PO 1 tab DAILY MADELINE Administration Saccharomyces Boulardii 250 mg 04/29/20 09:00 04/29/20 07:55 Saccharomyces Boulardii 250 Mg Cap PO 250 mg DAILY MADELINE Administration Sodium Chloride 10 ml 04/24/20 21:00 04/29/20 07:56 Flush - Normal Saline 10 Ml Syringe IVF 10 ml Q12HR MADELINE Administration Zinc Sulfate 220 mg 04/23/20 09:00 04/29/20 07:55 Zinc Sulfate 220 Mg Cap PO 220 mg DAILY MADELINE Administration - Exam Eye: PERRL, anicteric sclera Heart: RRR, no murmur, no gallops, no rubs Respiratory: rales (+ rales throughout) Gastrointestinal: soft, non-tender, non-distended, normal bowel sounds Extremities: no cyanosis, 1+ LE edema Hosp A/P (1) Acute respiratory failure due to COVID-19 Code(s): U07.1 - COVID-19; J96.00 - ACUTE RESPIRATORY FAILURE, UNSP W HYPOXIA OR HYPERCAPNIA Status: Acute (2) Diabetes Code(s): E11.9 - TYPE 2 DIABETES MELLITUS WITHOUT COMPLICATIONS Status: Acute Qualifiers: Diabetes mellitus type: type 2 Diabetes mellitus complication status: without complication (3) History of lymphoma Code(s): Z85.79 - PRSNL HX OF MALIG NEOPLM OF LYMPHOID, HEMATPOETC & REL TISS Status: Chronic - Plan * Acute respiratory failure due to COVID pneumonia- she continues to require BiPAP. She will desaturate quickly severely if this is removed. She has not done well on high flow * Continue Cefepime, and Solumedrol * Continue as per PCCM recommendations * DM- blood glucose is stable
[2020-04-29] MEDS: Ipratropium/Albuterol Sulfate 4 GM AER IH SCH ×2 (17:17→18:16)
[2020-04-30 04:00] LABS: #Lymphocytes 0.3 thou/uL (1.20-3.40); #Monocytes 0.3 thou/uL (0.11-0.59); #Neutrophils 7.8 thou/uL (1.40-6.50); %Basophils 0.5 % (0.0-1.0); %Eosinophils 0.1 % (0.0-10.0); %Lymphocytes 3.1 % (21.0-51.0); %Monocytes 3.2 % (0.0-10.0); %Neutrophils 93.1 % (42.0-75.0); Hemoglobin 11.2 g/dL (12.0-16.0); Mean Corpuscular HGB CONC 35.3 g/dL (32.0-36.0); Mean Corpuscular Hemoglobin 34.7 pg (27.0-31.0); Mean Corpuscular Volume 98.3 fL (78.0-98.0); Mean Platelet Volume 11.3 fL (7.4-10.4); Platelet Count 37 thou/uL (130-400); RBC Distribution Width 11.3 % (11.5-14.5); Red Blood Cell (RBC) Count 3.24 mill/uL (4.20-5.40); White Blood Cell (WBC) Count 8.4 thou/uL (4.8-10.8)
[2020-04-30] MEDS: methylPREDNISolone Sod Succ 40 MG VIAL IVP SCH ×4 (05:05→23:59)
[2020-04-30] MEDS: Mometasone 200 MCG/Formoterol 5 MCG 120 PUFF INHALER INH SCH ×2 (05:06→20:53)
[2020-04-30] MEDS: Ipratropium/Albuterol Sulfate 4 GM AER IH SCH ×4 (05:06→20:54)
[2020-04-30] MEDS: Cefepime 1 GM in Sodium Chloride 0.9% 100 ML IVPB SCH ×2 (07:58→20:55)
[2020-04-30] MEDS: Citalopram 20 MG TAB PO SCH (07:59)
[2020-04-30] MEDS: Benzonatate 100 MG CAP PO SCH ×3 (07:59→20:55)
[2020-04-30] MEDS: Cholecalciferol 1,000 UNITS (25 MCG) TAB PO SCH (07:59)
[2020-04-30] MEDS: Saccharomyces boulardii 250 MG CAP PO SCH (07:59)
[2020-04-30] MEDS: Atorvastatin Calcium 40 MG TAB PO SCH (07:59)
[2020-04-30] MEDS: metFORMIN 500 MG TAB PO SCH ×2 (07:59→20:54)
[2020-04-30] MEDS: Stress 600 With Zinc 1 TAB PO SCH (07:59)
[2020-04-30] MEDS: Zinc Sulfate 220 MG CAP PO SCH (07:59)
--- NOTE | 2020-04-30 09:14 | PDOC.HOSPP ---
- Subjective Encounter Date: 04/30/20 Encounter Time: 09:12 Subjective: Ms. Muse was seen today in follow-up of respiratory failure due to COVD pneumonia. She appears comfortable on BiPAP. She says she is breathing ok. She denies chest pain or dyspnea. - Objective Vital Signs & Weight: Vital Signs (12 hours) Temp Pulse Resp Pulse Ox 04/30/20 08:00 98.2 F 04/30/20 07:42 100 04/30/20 04:00 97.4 F L 04/30/20 00:41 65 21 H 100 04/30/20 00:40 100 04/30/20 00:00 97.7 F Weight Weight 167 lb 9.6 oz Most Recent Monitor Data Heart Rate from ECG 66 NIBP 165/84 NIBP BP-Mean 111 Respiration from ECG 26 SpO2 100 I&O: 04/29/20 04/30/20 05/01/20 06:59 06:59 06:59 Intake Total 930 Output Total 800 975 Balance 130 -975 Result Diagrams: 04/30/20 03:32 04/28/20 03:45 Additional Labs: Accuchecks 04/30/20 04/29/20 06:31 20:51 POC Glucose 228 H 173 H Hospitalist ROS - Medication Medications: Active Medications Generic Name Dose Route Start Last Admin Trade Name Freq PRN Reason Stop Dose Admin Albuterol/Ipratropium 1 gm 04/29/20 13:00 04/30/20 05:06 Ipratropium/Albuterol Sulfate 4 Gm Aer IH Not Given [id number] MADELINE Atorvastatin Calcium 40 mg 04/23/20 09:00 04/30/20 07:59 Atorvastatin Calcium 40 Mg Tab PO 40 mg DAILY MADELINE Administration Benzocaine 1 gm 04/29/20 02:47 04/29/20 06:01 Benzocaine (Dental) 20% 10 Gm Tube TOP 1 gm DAILYPRN PRN Administration Topical Anesthetic Benzonatate 100 mg 04/22/20 15:00 04/30/20 07:59 Benzonatate 100 Mg Cap PO 100 mg TID MADELINE Administration Cholecalciferol 2,000 units 04/25/20 09:00 04/30/20 07:59 Cholecalciferol 1,000 Units (25 Mcg) Tab PO 2,000 units DAILY MADELINE Administration Citalopram Hydrobromide 40 mg 04/23/20 09:00 04/30/20 07:59 Citalopram 20 Mg Tab PO 40 mg DAILY MADELINE Administration Guaifenesin/Codeine Phosphate 10 ml 04/22/20 10:55 04/25/20 03:34 Guaifenesin/Codeine Phosphate 200 Mg/20 Mg 10 Ml Ud Cup PO 10 ml Q6H PRN Administration Cough Cefepime HCl 1 gm/ Sodium 100 mls @ 200 mls/hr 04/24/20 21:00 04/30/20 07:58 Chloride IVPB 100 mls Q12HR MADELINE Administration Ascorbic Acid 1,500 mg/ Sodium 53 mls @ 100 mls/hr 04/26/20 12:00 04/30/20 05:05 Chloride IVPB 04/30/20 12:01 53 mls Q6HR MADELINE Administration Insulin Human Lispro 0 units 04/24/20 22:15 04/29/20 06:04 Humalog 300 Units/3 Ml Vial SC 2 unit .MILD SLIDING SCALE PRN Administration Mild Correctional Scale Insulin Human Lispro 0 units 04/24/20 22:15 04/28/20 20:26 Humalog 300 Units/3 Ml Vial SC 2 unit .BEDTIME SLIDING SC PRN Administration Bedtime Correctional Scale Metformin HCl 500 mg 04/22/20 21:00 04/30/20 07:59 Metformin 500 Mg Tab PO 500 mg BID MADELINE Administration Methylprednisolone Sodium Succinate 40 mg 04/24/20 12:00 04/30/20 05:05 Methylprednisolone Sod Succ 40 Mg Vial IVP 40 mg Q6HR MADELINE Administration Mometasone Furoate/Formoterol Fumar 2 puff 04/24/20 18:30 04/30/20 05:06 Mometasone 200 Mcg/Formoterol 5 Mcg 120 Puff Inhaler INH Not Given BID-RT MADELINE Multivitamins/Zinc 1 tab 04/23/20 09:00 04/30/20 07:59 Stress 600 With Zinc 1 Tab PO 1 tab DAILY MADELINE Administration Saccharomyces Boulardii 250 mg 04/29/20 09:00 04/30/20 07:59 Saccharomyces Boulardii 250 Mg Cap PO 250 mg DAILY MADELINE Administration Sodium Chloride 10 ml 04/24/20 21:00 04/30/20 07:59 Flush - Normal Saline 10 Ml Syringe IVF 10 ml Q12HR MADELINE Administration Zinc Sulfate 220 mg 04/23/20 09:00 04/30/20 07:59 Zinc Sulfate 220 Mg Cap PO 220 mg DAILY MADELINE Administration - Exam Eye: PERRL, anicteric sclera Heart: RRR, no murmur, no gallops, no rubs, normal peripheral pulses Respiratory: no wheezes, no ronchi, rales (+ rales throughout) Gastrointestinal: soft, non-tender, non-distended, normal bowel sounds, no palpable masses, no hepatomegaly Extremities: no cyanosis, no edema Hosp A/P (1) Acute respiratory failure due to COVID-19 Code(s): U07.1 - COVID-19; J96.00 - ACUTE RESPIRATORY FAILURE, UNSP W HYPOXIA OR HYPERCAPNIA Status: Acute (2) Diabetes Code(s): E11.9 - TYPE 2 DIABETES MELLITUS WITHOUT COMPLICATIONS Status: Acute Qualifiers: Diabetes mellitus type: type 2 Diabetes mellitus complication status: without complication (3) History of lymphoma Code(s): Z85.79 - PRSNL HX OF MALIG NEOPLM OF LYMPHOID, HEMATPOETC & REL TISS Status: Chronic - Plan * Acute respiratory failure due to COVID pneumonia- she continues to require BiPAP. * No significant change overnight * Continue Cefepime, and Solumedrol * Continue as per PCCM recommendations * DM- blood glucose is stable
[2020-04-30] MEDS: HumaLOG 300 UNITS/3 ML VIAL SC PRN (21:18)
[2020-05-01] MEDS: Ipratropium/Albuterol Sulfate 4 GM AER IH SCH ×4 (01:00→21:57)
[2020-05-01 03:38] LABS: #Lymphocytes 0.3 thou/uL (1.20-3.40); #Monocytes 0.3 thou/uL (0.11-0.59); #Neutrophils 7.9 thou/uL (1.40-6.50); %Eosinophils 0.2 % (0.0-10.0); %Lymphocytes 3.3 % (21.0-51.0); %Monocytes 3.4 % (0.0-10.0); %Neutrophils 93.1 % (42.0-75.0); Hemoglobin 11.3 g/dL (12.0-16.0); Mean Corpuscular Hemoglobin 34.6 pg (27.0-31.0); Mean Corpuscular Volume 98.8 fL (78.0-98.0); Mean Platelet Volume 11.9 fL (7.4-10.4); Platelet Count 34 thou/uL (130-400); RBC Distribution Width 11.4 % (11.5-14.5); Red Blood Cell (RBC) Count 3.28 mill/uL (4.20-5.40); White Blood Cell (WBC) Count 8.5 thou/uL (4.8-10.8)
[2020-05-01] MEDS: methylPREDNISolone Sod Succ 40 MG VIAL IVP SCH ×3 (05:27→17:37)
[2020-05-01] MEDS: HumaLOG 300 UNITS/3 ML VIAL SC PRN ×3 (05:53→18:17)
[2020-05-01] MEDS: Mometasone 200 MCG/Formoterol 5 MCG 120 PUFF INHALER INH SCH ×2 (07:42→17:33)
[2020-05-01] MEDS: Zinc Sulfate 220 MG CAP PO SCH (08:22)
[2020-05-01] MEDS: Saccharomyces boulardii 250 MG CAP PO SCH (08:22)
[2020-05-01] MEDS: Ascorbic Acid 500 mg Chewable Tablet PO SCH (08:22)
[2020-05-01] MEDS: Stress 600 With Zinc 1 TAB PO SCH (08:23)
[2020-05-01] MEDS: Cholecalciferol 1,000 UNITS (25 MCG) TAB PO SCH (08:23)
[2020-05-01] MEDS: Citalopram 20 MG TAB PO SCH (08:24)
[2020-05-01] MEDS: Cefepime 1 GM in Sodium Chloride 0.9% 100 ML IVPB SCH ×2 (08:24→21:56)
[2020-05-01] MEDS: Atorvastatin Calcium 40 MG TAB PO SCH (08:24)
[2020-05-01] MEDS: metFORMIN 500 MG TAB PO SCH ×2 (08:24→21:56)
[2020-05-01] MEDS: Benzonatate 100 MG CAP PO SCH ×3 (08:24→21:56)
[2020-05-01] MEDS: Benzocaine (Dental) 7 GM TUBE TOP PRN (08:25)
--- NOTE | 2020-05-01 08:30 | PRG ---
DATE OF SERVICE: 05/01/2020 SUBJECTIVE: The patient remains in the ICU on BiPAP in isolation for COVID-19 pneumonia. Clinical status is not changed. OBJECTIVE: VITAL SIGNS: Temperature is 97.5, pulse 80, blood pressure 192/101, O2 saturation 96%. 24-hour intake 820, output 1025. HEENT: Unremarkable. NECK: No JVD. LUNGS: Coarse breath sounds. CARDIAC: S1, S2. Regular. ABDOMEN: Soft. EXTREMITIES: No edema. LABORATORY DATA: White blood cell count 8.5, hematocrit 32, and platelet count 34. No chemistry was done today. ASSESSMENT: 1. COVID-19 pneumonia. 2. Acute respiratory failure, requiring noninvasive mechanical ventilation with FiO2 of 85%. PLAN: Continue steroids. The patient has thrombocytopenia, so she is not a good candidate for anticoagulation. I think her prognosis for recovery is extremely poor and she is at high risk to advance towards endotracheal intubation. Job ID: [id number]
--- NOTE | 2020-05-01 14:06 | PDOC.HOSPP ---
- Subjective Encounter Date: 05/01/20 Encounter Time: 14:04 Subjective: Ms. Muse was seen today in follow-up of COVID pneumonia and respiratory failure. She does not have any complaints. She remains on BiPAP. - Objective Vital Signs & Weight: Vital Signs (12 hours) Temp Pulse Resp Pulse Ox 05/01/20 14:01 97 27 H 91 L 05/01/20 12:00 94 L 05/01/20 08:38 82 21 H 95 05/01/20 08:00 96.4 F L 96 05/01/20 02:58 60 19 98 Weight Weight 167 lb 9.6 oz Most Recent Monitor Data Heart Rate from ECG 75 NIBP 163/80 NIBP BP-Mean 107 Respiration from ECG 23 SpO2 94 I&O: 04/30/20 05/01/20 05/02/20 06:59 06:59 06:59 Intake Total 820 Output Total 975 1025 Balance -975 -205 Result Diagrams: 05/01/20 03:19 04/28/20 03:45 Additional Labs: Accuchecks 05/01/20 05/01/20 04/30/20 13:26 05:45 21:00 POC Glucose 170 H 199 H 214 H 04/30/20 04/29/20 18:18 17:42 POC Glucose 217 H 162 H Hospitalist ROS - Medication Medications: Active Medications Generic Name Dose Route Start Last Admin Trade Name Freq PRN Reason Stop Dose Admin Albuterol/Ipratropium 1 gm 04/29/20 13:00 05/01/20 07:47 Ipratropium/Albuterol Sulfate 4 Gm Aer IH 1 inh [id number] MADELINE Administration Ascorbic Acid 1,000 mg 05/01/20 09:00 05/01/20 08:22 Ascorbic Acid 500 Mg Chewable Tablet PO 1,000 mg DAILY MADELINE Administration Atorvastatin Calcium 40 mg 04/23/20 09:00 05/01/20 08:24 Atorvastatin Calcium 40 Mg Tab PO 40 mg DAILY MADELINE Administration Benzocaine 1 gm 04/29/20 02:47 05/01/20 08:25 Benzocaine (Dental) 20% 10 Gm Tube TOP 1 gm DAILYPRN PRN Administration Topical Anesthetic Benzonatate 100 mg 04/22/20 15:00 05/01/20 08:24 Benzonatate 100 Mg Cap PO 100 mg TID MADELINE Administration Cholecalciferol 2,000 units 04/25/20 09:00 05/01/20 08:23 Cholecalciferol 1,000 Units (25 Mcg) Tab PO 2,000 units DAILY MADELINE Administration Citalopram Hydrobromide 40 mg 04/23/20 09:00 05/01/20 08:24 Citalopram 20 Mg Tab PO 40 mg DAILY MADELINE Administration Guaifenesin/Codeine Phosphate 10 ml 04/22/20 10:55 04/25/20 03:34 Guaifenesin/Codeine Phosphate 200 Mg/20 Mg 10 Ml Ud Cup PO 10 ml Q6H PRN Administration Cough Cefepime HCl 1 gm/ Sodium 100 mls @ 200 mls/hr 04/24/20 21:00 05/01/20 08:24 Chloride IVPB 100 mls Q12HR MADELINE Administration Insulin Human Lispro 0 units 04/24/20 22:15 05/01/20 13:17 Humalog 300 Units/3 Ml Vial SC 2 unit .MILD SLIDING SCALE PRN Administration Mild Correctional Scale Insulin Human Lispro 0 units 04/24/20 22:15 04/30/20 21:18 Humalog 300 Units/3 Ml Vial SC 2 unit .BEDTIME SLIDING SC PRN Administration Bedtime Correctional Scale Metformin HCl 500 mg 04/22/20 21:00 05/01/20 08:24 Metformin 500 Mg Tab PO 500 mg BID MADELINE Administration Methylprednisolone Sodium Succinate 40 mg 04/24/20 12:00 05/01/20 13:14 Methylprednisolone Sod Succ 40 Mg Vial IVP 40 mg Q6HR MADELINE Administration Mometasone Furoate/Formoterol Fumar 2 puff 04/24/20 18:30 05/01/20 07:42 Mometasone 200 Mcg/Formoterol 5 Mcg 120 Puff Inhaler INH Not Given BID-RT MADELINE Multivitamins/Zinc 1 tab 04/23/20 09:00 05/01/20 08:23 Stress 600 With Zinc 1 Tab PO 1 tab DAILY MADELINE Administration Saccharomyces Boulardii 250 mg 04/29/20 09:00 05/01/20 08:22 Saccharomyces Boulardii 250 Mg Cap PO 250 mg DAILY MADELINE Administration Sodium Chloride 10 ml 04/24/20 21:00 05/01/20 08:25 Flush - Normal Saline 10 Ml Syringe IVF 10 ml Q12HR MADELINE Administration Zinc Sulfate 220 mg 04/23/20 09:00 05/01/20 08:22 Zinc Sulfate 220 Mg Cap PO 220 mg DAILY MADELINE Administration - Exam Eye: PERRL, anicteric sclera Heart: RRR, no murmur, no gallops, no rubs, normal peripheral pulses Respiratory: rales (at both bases) Gastrointestinal: soft, non-tender, non-distended, normal bowel sounds, no palpable masses, no hepatomegaly Extremities: no cyanosis, no edema Hosp A/P (1) Acute respiratory failure due to COVID-19 Code(s): U07.1 - COVID-19; J96.00 - ACUTE RESPIRATORY FAILURE, UNSP W HYPOXIA OR HYPERCAPNIA Status: Acute (2) Diabetes Code(s): E11.9 - TYPE 2 DIABETES MELLITUS WITHOUT COMPLICATIONS Status: Acute Qualifiers: Diabetes mellitus type: type 2 Diabetes mellitus complication status: without complication (3) History of lymphoma Code(s): Z85.79 - PRSNL HX OF MALIG NEOPLM OF LYMPHOID, HEMATPOETC & REL TISS Status: Chronic - Plan * Acute respiratory failure due to COVID pneumonia- her condition remains about the same * The concern however as that she will begin to fatigue * Continue Cefepime, and Solumedrol * Continue as per PCCM recommendations * DM- blood glucose is stable * The Palliative Care team is involved in her care.
--- NOTE | 2020-05-01 14:10 | PDOC.PALCO ---
Palliative Care Consult - Consult Details Requesting Physician: Dr Glaser Reason for Consult: goals of care, complex decision-making - Pertinent HPI 70 year old female who has a known history of lymphoma, HDL, lives independently with her mother and interacts with her daughter and granddaughter. She presented to the emergency room for evaluation of increase in shortness of breath, cough, and fever for a week. She had no know exposure to Covid. On presentation to the emergency room she was found to be hypoxic, and was positive for Covid Pneumonia. Admitted for medical management. Currently in IMCU on Bipap. - Social History Smoking Status: Never smoker Smoking: no tobacco exposure Alcohol Use: none Drug Use History: none Living Situation: independent - Medications MAR Reviewed: Yes - Allergies Allergies/Adverse Reactions: Allergies Allergy/AdvReac Type Severity Reaction Status Date / Time No Known Drug Allergies Allergy Verified 04/23/20 22:49 - Subjective Anxious, dry mouth, on Bipap. - ROS Constitutional: alert, weakness ENT: dry mouth Respiratory: shortness of breath, shortness of breath with extertion Cardiology: palpitations Gastrointestinal: other (Denies nausea or vomiting) Musculoskeletal: other (Denies muskeletal pain) Skin: other (Negative for rash, puritis) Psychological: anxiety - Objective Vital Signs: Vital Signs - Most Recent Temp Pulse Resp BP Pulse Ox 96.4 F L 97 27 H 129/105 H 91 L 05/01/20 08:00 05/01/20 14:01 05/01/20 14:01 04/26/20 13:35 05/01/20 14:01 Palliative Performance Scale: 30 - Physical Exam Constitutional: ill appearing, mild distress HEENT: EOMI, moist MMs, sclera anicteric Respiratory: no wheezing, cough, labored respirations Cardiovascular: RRR Gastrointestinal: soft, non-tender, positive bowel sounds Musculoskeletal: no cyanosis, no clubbing, pulses present Neurology: moves all 4 limbs, no focal deficits Skin: cap refill <2 seconds, fragile Psychiatric: A&O x 3 - Problem List (1) Palliative care encounter Code(s): Z51.5 - ENCOUNTER FOR PALLIATIVE CARE Current Visit: Yes Status: Acute (2) Acute respiratory failure due to COVID-19 Code(s): U07.1 - COVID-19; J96.00 - ACUTE RESPIRATORY FAILURE, UNSP W HYPOXIA OR HYPERCAPNIA Current Visit: Yes Status: Acute (3) Diabetes Code(s): E11.9 - TYPE 2 DIABETES MELLITUS WITHOUT COMPLICATIONS Current Visit: Yes Status: Acute Qualifiers: Diabetes mellitus type: type 2 Diabetes mellitus complication status: without complication - Plan/Recommendations Plan: Introduced Palliative Care to Ms Muse. She confirmed she has one daughter who is her surrogate decision maker. Discussed resuscitation status and need for intubation if she declines. Is not certain if she would desire to be intubated or remain comfortable. Palliative Care will follow up and revisit the conversation. Emotional support and Therapeutic listening offered. [50] minutes spent on this encounter with >50% of the time in counseling and coordination of care. Thank you for this very appropriate consult.
[2020-05-02] MEDS: methylPREDNISolone Sod Succ 40 MG VIAL IVP SCH ×4 (00:15→16:43)
[2020-05-02] MEDS: Ipratropium/Albuterol Sulfate 4 GM AER IH SCH ×4 (00:15→20:58)
[2020-05-02 04:13] LABS: #Lymphocytes 0.3 thou/uL (1.20-3.40); #Monocytes 0.4 thou/uL (0.11-0.59); #Neutrophils 7.7 thou/uL (1.40-6.50); %Eosinophils 0.4 % (0.0-10.0); %Lymphocytes 3.1 % (21.0-51.0); %Monocytes 4.7 % (0.0-10.0); %Neutrophils 91.8 % (42.0-75.0); Hemoglobin 11.2 g/dL (12.0-16.0); Mean Corpuscular Hemoglobin 34.7 pg (27.0-31.0); Mean Corpuscular Volume 99.4 fL (78.0-98.0); Mean Platelet Volume 11.6 fL (7.4-10.4); Platelet Count 33 thou/uL (130-400); RBC Distribution Width 11.5 % (11.5-14.5); Red Blood Cell (RBC) Count 3.24 mill/uL (4.20-5.40); White Blood Cell (WBC) Count 8.4 thou/uL (4.8-10.8)
[2020-05-02] MEDS: HumaLOG 300 UNITS/3 ML VIAL SC PRN ×2 (05:27→15:27)
--- NOTE | 2020-05-02 09:02 | PDOC.HOSPP ---
- Subjective Encounter Date: 05/02/20 Encounter Time: 09:00 Subjective: Ms. Muse was seen today in follow-up of COVID pneumonia and respiratory failure. She has been holding steady so far on BiPAP. She complains of her mouth feeling dry. - Objective Vital Signs & Weight: Vital Signs (12 hours) Pulse Resp Pulse Ox 05/02/20 08:16 80 19 94 L 05/02/20 07:42 94 L 05/02/20 03:08 83 22 H 95 Weight Weight 167 lb 9.6 oz Most Recent Monitor Data Heart Rate from ECG 69 NIBP 199/84 NIBP BP-Mean 122 Respiration from ECG 17 SpO2 94 I&O: 05/01/20 05/02/20 05/03/20 06:59 06:59 06:59 Intake Total 820 1275 Output Total 1025 1200 Balance -205 75 Result Diagrams: 05/02/20 03:34 04/28/20 03:45 Additional Labs: Accuchecks 05/02/20 05/01/20 05/01/20 05:22 22:06 18:19 POC Glucose 192 H 191 H 171 H 05/01/20 04/29/20 13:26 17:42 POC Glucose 170 H 162 H Hospitalist ROS - Medication Medications: Active Medications Generic Name Dose Route Start Last Admin Trade Name Freq PRN Reason Stop Dose Admin Albuterol/Ipratropium 1 gm 04/29/20 13:00 05/02/20 00:15 Ipratropium/Albuterol Sulfate 4 Gm Aer IH Not Given [id number] MADELINE Ascorbic Acid 1,000 mg 05/01/20 09:00 05/01/20 08:22 Ascorbic Acid 500 Mg Chewable Tablet PO 1,000 mg DAILY MADELINE Administration Atorvastatin Calcium 40 mg 04/23/20 09:00 05/01/20 08:24 Atorvastatin Calcium 40 Mg Tab PO 40 mg DAILY MADELINE Administration Benzocaine 1 gm 04/29/20 02:47 05/01/20 08:25 Benzocaine (Dental) 20% 10 Gm Tube TOP 1 gm DAILYPRN PRN Administration Topical Anesthetic Benzonatate 100 mg 04/22/20 15:00 05/01/20 21:56 Benzonatate 100 Mg Cap PO 100 mg TID MADELINE Administration Cholecalciferol 2,000 units 04/25/20 09:00 05/01/20 08:23 Cholecalciferol 1,000 Units (25 Mcg) Tab PO 2,000 units DAILY MADELINE Administration Citalopram Hydrobromide 40 mg 04/23/20 09:00 05/01/20 08:24 Citalopram 20 Mg Tab PO 40 mg DAILY MADELINE Administration Guaifenesin/Codeine Phosphate 10 ml 04/22/20 10:55 04/25/20 03:34 Guaifenesin/Codeine Phosphate 200 Mg/20 Mg 10 Ml Ud Cup PO 10 ml Q6H PRN Administration Cough Cefepime HCl 1 gm/ Sodium 100 mls @ 200 mls/hr 04/24/20 21:00 05/01/20 21:56 Chloride IVPB 100 mls Q12HR MADELINE Administration Insulin Human Lispro 0 units 04/24/20 22:15 05/02/20 05:27 Humalog 300 Units/3 Ml Vial SC 2 unit .MILD SLIDING SCALE PRN Administration Mild Correctional Scale Insulin Human Lispro 0 units 04/24/20 22:15 04/30/20 21:18 Humalog 300 Units/3 Ml Vial SC 2 unit .BEDTIME SLIDING SC PRN Administration Bedtime Correctional Scale Melatonin 6 mg 04/22/20 11:58 05/01/20 21:56 Melatonin 3 Mg Tab PO 6 mg DAILY PRN Administration Insomnia Metformin HCl 500 mg 04/22/20 21:00 05/01/20 21:56 Metformin 500 Mg Tab PO 500 mg BID MADELINE Administration Methylprednisolone Sodium Succinate 40 mg 04/24/20 12:00 05/02/20 05:16 Methylprednisolone Sod Succ 40 Mg Vial IVP 40 mg Q6HR MADELINE Administration Mometasone Furoate/Formoterol Fumar 2 puff 04/24/20 18:30 05/01/20 17:33 Mometasone 200 Mcg/Formoterol 5 Mcg 120 Puff Inhaler INH Not Given BID-RT MADELINE Multivitamins/Zinc 1 tab 04/23/20 09:00 05/01/20 08:23 Stress 600 With Zinc 1 Tab PO 1 tab DAILY MADELINE Administration Saccharomyces Boulardii 250 mg 04/29/20 09:00 05/01/20 08:22 Saccharomyces Boulardii 250 Mg Cap PO 250 mg DAILY MADELINE Administration Sodium Chloride 10 ml 04/24/20 21:00 05/01/20 21:57 Flush - Normal Saline 10 Ml Syringe IVF Not Given Q12HR MADELINE Zinc Sulfate 220 mg 04/23/20 09:00 05/01/20 08:22 Zinc Sulfate 220 Mg Cap PO 220 mg DAILY MADELINE Administration - Exam Eye: PERRL, anicteric sclera Heart: RRR, no murmur, no gallops, no rubs, normal peripheral pulses Respiratory: no wheezes, no ronchi, rales (+ rales throughout) Gastrointestinal: soft, non-tender, non-distended, normal bowel sounds, no palpable masses, no hepatomegaly Extremities: no cyanosis, no edema Hosp A/P (1) Acute respiratory failure due to COVID-19 Code(s): U07.1 - COVID-19; J96.00 - ACUTE RESPIRATORY FAILURE, UNSP W HYPOXIA OR HYPERCAPNIA Status: Acute (2) Diabetes Code(s): E11.9 - TYPE 2 DIABETES MELLITUS WITHOUT COMPLICATIONS Status: Acute Qualifiers: Diabetes mellitus type: type 2 Diabetes mellitus complication status: without complication (3) History of lymphoma Code(s): Z85.79 - PRSNL HX OF [facility] OF LYMPHOID, HEMATPOETC & REL TISS Status: Chronic - Plan * Acute respiratory failure due to COVID pneumonia- her condition remains about the same * She has been up to sit in a chair yesterday. She tells me she has been exercising her arms and legs while in bed * Continue Cefepime, and Solumedrol * Continue as per PCCM recommendations * DM- blood glucose is stable * HTN- blood pressure has been labile- will add Clonidine as needed * The Palliative Care team is involved in her care.
[2020-05-02 09:53] LABS: Anion Gap 16 mmol/L (10-20); BUN (Urea Nitrogen) 24 mg/dL (9.8-20.1); Calc. Creatinine Clearance 102 mL/min (70-130); Carbon Dioxide 27 mmol/L (23-31); Chloride 99 mmol/L (98-107); Estimated GFR-MDRD Greater than 90; Glucose 197 mg/dL (83-110); Potassium 4.8 mmol/L (3.5-5.1); Sodium 137 mmol/L (136-145)
[2020-05-02] MEDS: Ascorbic Acid 500 mg Chewable Tablet PO SCH (10:10)
[2020-05-02] MEDS: Atorvastatin Calcium 40 MG TAB PO SCH (10:10)
[2020-05-02] MEDS: Cholecalciferol 1,000 UNITS (25 MCG) TAB PO SCH (10:11)
[2020-05-02] MEDS: Citalopram 20 MG TAB PO SCH (10:11)
[2020-05-02] MEDS: metFORMIN 500 MG TAB PO SCH ×2 (10:11→20:59)
[2020-05-02] MEDS: Benzonatate 100 MG CAP PO SCH ×3 (10:11→20:59)
[2020-05-02] MEDS: Saccharomyces boulardii 250 MG CAP PO SCH (10:11)
[2020-05-02] MEDS: cloNIDine 0.1 MG TAB PO PRN ×2 (10:12→10:33)
[2020-05-02] MEDS: Stress 600 With Zinc 1 TAB PO SCH (10:12)
[2020-05-02] MEDS: Zinc Sulfate 220 MG CAP PO SCH (10:12)
[2020-05-02] MEDS: Cefepime 1 GM in Sodium Chloride 0.9% 100 ML IVPB SCH ×2 (10:26→20:59)
[2020-05-02] MEDS: Mometasone 200 MCG/Formoterol 5 MCG 120 PUFF INHALER INH SCH ×2 (10:29→18:21)
[2020-05-02] MEDS: Lorazepam 2 MG/ML VIAL SLOW IVP PRN ×2 (10:34→16:42)
[2020-05-02] MEDS ORDERED: BIOTENE MOUTH SPRAY 44.3 ML MM PRN (16:35)
[2020-05-03] MEDS: Ipratropium/Albuterol Sulfate 4 GM AER IH SCH ×4 (01:30→21:33)
[2020-05-03] MEDS: methylPREDNISolone Sod Succ 40 MG VIAL IVP SCH ×4 (01:30→16:25)
[2020-05-03 03:52] LABS: #Lymphocytes 0.3 thou/uL (1.20-3.40); #Monocytes 0.6 thou/uL (0.11-0.59); #Neutrophils 8.5 thou/uL (1.40-6.50); %Eosinophils 0.2 % (0.0-10.0); %Lymphocytes 2.8 % (21.0-51.0); %Monocytes 6.1 % (0.0-10.0); %Neutrophils 90.9 % (42.0-75.0); Hemoglobin 11.3 g/dL (12.0-16.0); Mean Corpuscular Hemoglobin 34.1 pg (27.0-31.0); Mean Platelet Volume 12.1 fL (7.4-10.4); Platelet Count 34 thou/uL (130-400); RBC Distribution Width 11.7 % (11.5-14.5); Red Blood Cell (RBC) Count 3.31 mill/uL (4.20-5.40); White Blood Cell (WBC) Count 9.4 thou/uL (4.8-10.8)
[2020-05-03] MEDS: HumaLOG 300 UNITS/3 ML VIAL SC PRN ×2 (06:05→12:45)
[2020-05-03] MEDS: Mometasone 200 MCG/Formoterol 5 MCG 120 PUFF INHALER INH SCH ×3 (06:20→21:32)
[2020-05-03] MEDS: Saccharomyces boulardii 250 MG CAP PO SCH (09:24)
[2020-05-03] MEDS: Ascorbic Acid 500 mg Chewable Tablet PO SCH (09:24)
[2020-05-03] MEDS: metFORMIN 500 MG TAB PO SCH ×2 (09:25→21:31)
[2020-05-03] MEDS: Atorvastatin Calcium 40 MG TAB PO SCH (09:25)
[2020-05-03] MEDS: Benzonatate 100 MG CAP PO SCH ×3 (09:25→21:31)
[2020-05-03] MEDS: Cefepime 1 GM in Sodium Chloride 0.9% 100 ML IVPB SCH ×2 (09:25→21:31)
[2020-05-03] MEDS: Cholecalciferol 1,000 UNITS (25 MCG) TAB PO SCH (09:25)
[2020-05-03] MEDS: Citalopram 20 MG TAB PO SCH (09:25)
[2020-05-03] MEDS: Zinc Sulfate 220 MG CAP PO SCH (09:26)
[2020-05-03] MEDS: Stress 600 With Zinc 1 TAB PO SCH (09:26)
[2020-05-03] MEDS: cloNIDine 0.1 MG TAB PO PRN (09:32)
[2020-05-03] MEDS: Lorazepam 2 MG/ML VIAL SLOW IVP PRN (09:33)
--- NOTE | 2020-05-03 09:41 | PDOC.HOSPP ---
- Subjective Encounter Date: 05/03/20 Encounter Time: 09:40 Subjective: Ms. Muse was seen today in follow-up of respiratory failure due to COVID pneumonia. She says she rested ok last night. She continues to feel ok on BiPAP. - Objective Vital Signs & Weight: Vital Signs (12 hours) Temp Pulse Resp Pulse Ox 05/03/20 09:28 77 94 L 05/03/20 08:00 93 L 05/03/20 03:03 61 21 H 93 L 05/03/20 00:15 96.8 F L 05/02/20 22:46 68 22 H 97 Weight Weight 167 lb 9.6 oz Most Recent Monitor Data Heart Rate from ECG 62 NIBP 160/85 NIBP BP-Mean 110 Respiration from ECG 24 SpO2 93 I&O: 05/02/20 05/03/20 05/04/20 06:59 06:59 06:59 Intake Total 1275 800 Output Total 1200 1350 Balance 75 -550 Result Diagrams: 05/03/20 03:33 05/02/20 09:18 Additional Labs: Accuchecks 05/03/20 05/02/20 05/02/20 06:02 20:22 15:31 POC Glucose 202 H 192 H 184 H 05/02/20 10:45 POC Glucose 179 H Hospitalist ROS - Medication Medications: Active Medications Generic Name Dose Route Start Last Admin Trade Name Freq PRN Reason Stop Dose Admin Albuterol/Ipratropium 1 gm 04/29/20 13:00 05/03/20 09:27 Ipratropium/Albuterol Sulfate 4 Gm Aer IH 1 inh [id number] MADELINE Administration Ascorbic Acid 1,000 mg 05/01/20 09:00 05/03/20 09:24 Ascorbic Acid 500 Mg Chewable Tablet PO 1,000 mg DAILY MADELINE Administration Atorvastatin Calcium 40 mg 04/23/20 09:00 05/03/20 09:25 Atorvastatin Calcium 40 Mg Tab PO 40 mg DAILY MADLEINE Administration Benzocaine 1 gm 04/29/20 02:47 05/01/20 08:25 Benzocaine (Dental) 20% 10 Gm Tube TOP 1 gm DAILYPRN PRN Administration Topical Anesthetic Benzonatate 100 mg 04/22/20 15:00 05/03/20 09:25 Benzonatate 100 Mg Cap PO 100 mg TID MADELINE Administration Cholecalciferol 2,000 units 04/25/20 09:00 05/03/20 09:25 Cholecalciferol 1,000 Units (25 Mcg) Tab PO 2,000 units DAILY MADELINE Administration Citalopram Hydrobromide 40 mg 04/23/20 09:00 05/03/20 09:25 Citalopram 20 Mg Tab PO 40 mg DAILY MADELINE Administration Clonidine 0.1 mg 05/02/20 08:58 05/02/20 10:12 Clonidine 0.1 Mg Tab PO 0.1 mg Q4H PRN Administration SBP GREATER THAN 160 Guaifenesin/Codeine Phosphate 10 ml 04/22/20 10:55 04/25/20 03:34 Guaifenesin/Codeine Phosphate 200 Mg/20 Mg 10 Ml Ud Cup PO 10 ml Q6H PRN Administration Cough Cefepime HCl 1 gm/ Sodium 100 mls @ 200 mls/hr 04/24/20 21:00 05/03/20 09:25 Chloride IVPB 100 mls Q12HR MADELINE Administration Insulin Human Lispro 0 units 04/24/20 22:15 05/03/20 06:05 Humalog 300 Units/3 Ml Vial SC 3 unit .MILD SLIDING SCALE PRN Administration Mild Correctional Scale Insulin Human Lispro 0 units 04/24/20 22:15 04/30/20 21:18 Humalog 300 Units/3 Ml Vial SC 2 unit .BEDTIME SLIDING SC PRN Administration Bedtime Correctional Scale Lorazepam 0.5 mg 05/02/20 08:59 05/02/20 16:42 Lorazepam 2 Mg/Ml Vial SLOW IVP 0.5 mg Q4H PRN Administration Anxiety/Agitation Melatonin 6 mg 04/22/20 11:58 05/01/20 21:56 Melatonin 3 Mg Tab PO 6 mg DAILY PRN Administration Insomnia Metformin HCl 500 mg 04/22/20 21:00 05/03/20 09:25 Metformin 500 Mg Tab PO 500 mg BID MADELINE Administration Methylprednisolone Sodium Succinate 40 mg 04/24/20 12:00 05/03/20 05:50 Methylprednisolone Sod Succ 40 Mg Vial IVP 40 mg Q6HR MADELINE Administration Mometasone Furoate/Formoterol Fumar 2 puff 04/24/20 18:30 05/03/20 09:28 Mometasone 200 Mcg/Formoterol 5 Mcg 120 Puff Inhaler INH 2 puff BID-RT MADELINE Administration Multivitamins/Zinc 1 tab 04/23/20 09:00 05/03/20 09:26 Stress 600 With Zinc 1 Tab PO 1 tab DAILY MADELINE Administration Saccharomyces Boulardii 250 mg 04/29/20 09:00 05/03/20 09:24 Saccharomyces Boulardii 250 Mg Cap PO 250 mg DAILY MADELINE Administration Sodium Chloride 10 ml 04/24/20 21:00 05/03/20 09:26 Flush - Normal Saline 10 Ml Syringe IVF 10 ml Q12HR MADELINE Administration Zinc Sulfate 220 mg 04/23/20 09:00 05/03/20 09:26 Zinc Sulfate 220 Mg Cap PO 220 mg DAILY MADELINE Administration - Exam Eye: PERRL, anicteric sclera Heart: RRR, no murmur, no gallops, no rubs, normal peripheral pulses Respiratory: rales, rhonchi (Rales and rhonchi bilaterally, no wheezing) Gastrointestinal: soft, non-tender, non-distended, normal bowel sounds, no palpable masses, no hepatomegaly Extremities: no cyanosis, 1+ LE edema Hosp A/P (1) Acute respiratory failure due to COVID-19 Code(s): U07.1 - COVID-19; J96.00 - ACUTE RESPIRATORY FAILURE, UNSP W HYPOXIA OR HYPERCAPNIA Status: Acute (2) Diabetes Code(s): E11.9 - TYPE 2 DIABETES MELLITUS WITHOUT COMPLICATIONS Status: Acute Qualifiers: Diabetes mellitus type: type 2 Diabetes mellitus complication status: without complication (3) History of lymphoma Code(s): Z85.79 - PRSNL HX OF [facility] NEOPL OF LYMPHOID, HEMATPOETC & REL TISS Status: Chronic - Plan * Acute respiratory failure due to COVID pneumonia- her condition remains about the same * She has been up to sit in a chair yesterday. She tells me she has been exercising her arms and legs while in bed * Continue - Solumedrol * Will consider discontinuing Cefepime tomorrow, after the scheduled stop date * Try weaning BiPAP * DM- blood glucose is stable * HTN- blood pressure has been labile- will schedule Clonidine
[2020-05-04] MEDS: methylPREDNISolone Sod Succ 40 MG VIAL IVP SCH ×4 (00:55→18:23)
[2020-05-04] MEDS: Ipratropium/Albuterol Sulfate 4 GM AER IH SCH ×4 (01:33→18:42)
[2020-05-04 04:44] LABS: #Lymphocytes 0.3 thou/uL (1.20-3.40); #Monocytes 0.5 thou/uL (0.11-0.59); #Neutrophils 10.2 thou/uL (1.40-6.50); %Basophils 0.1 % (0.0-1.0); %Eosinophils 0.2 % (0.0-10.0); %Lymphocytes 2.7 % (21.0-51.0); %Monocytes 4.9 % (0.0-10.0); %Neutrophils 92.2 % (42.0-75.0); Hemoglobin 11.6 g/dL (12.0-16.0); Mean Platelet Volume 12.3 fL (7.4-10.4); Platelet Count 31 thou/uL (130-400); RBC Distribution Width 11.9 % (11.5-14.5); Red Blood Cell (RBC) Count 3.52 mill/uL (4.20-5.40); White Blood Cell (WBC) Count 11.1 thou/uL (4.8-10.8)
[2020-05-04] MEDS: HumaLOG 300 UNITS/3 ML VIAL SC PRN (06:24)
[2020-05-04] MEDS: Mometasone 200 MCG/Formoterol 5 MCG 120 PUFF INHALER INH SCH ×2 (06:30→18:41)
[2020-05-04] MEDS: Cefepime 1 GM in Sodium Chloride 0.9% 100 ML IVPB SCH ×2 (08:01→22:07)
[2020-05-04] MEDS: Atorvastatin Calcium 40 MG TAB PO SCH (08:01)
[2020-05-04] MEDS: Stress 600 With Zinc 1 TAB PO SCH (08:01)
[2020-05-04] MEDS: Zinc Sulfate 220 MG CAP PO SCH (08:01)
[2020-05-04] MEDS: Benzonatate 100 MG CAP PO SCH ×3 (08:01→22:07)
[2020-05-04] MEDS: Cholecalciferol 1,000 UNITS (25 MCG) TAB PO SCH (08:02)
[2020-05-04] MEDS: Ascorbic Acid 500 mg Chewable Tablet PO SCH (08:02)
[2020-05-04] MEDS: metFORMIN 500 MG TAB PO SCH ×2 (08:02→22:07)
[2020-05-04] MEDS: Citalopram 20 MG TAB PO SCH (08:02)
[2020-05-04] MEDS: Saccharomyces boulardii 250 MG CAP PO SCH (08:02)
[2020-05-04] MEDS: cloNIDine 0.1 MG TAB PO PRN ×2 (10:09→18:23)
[2020-05-05] MEDS: Ipratropium/Albuterol Sulfate 4 GM AER IH SCH ×4 (01:47→18:42)
[2020-05-05] MEDS: methylPREDNISolone Sod Succ 40 MG VIAL IVP SCH ×5 (01:47→20:57)
[2020-05-05 03:37] LABS: #Lymphocytes 0.3 thou/uL (1.20-3.40); #Monocytes 0.6 thou/uL (0.11-0.59); #Neutrophils 9.1 thou/uL (1.40-6.50); %Eosinophils 0.2 % (0.0-10.0); %Lymphocytes 2.7 % (21.0-51.0); %Monocytes 5.7 % (0.0-10.0); %Neutrophils 91.3 % (42.0-75.0); Hemoglobin 11.6 g/dL (12.0-16.0); Mean Corpuscular HGB CONC 34.4 g/dL (32.0-36.0); Mean Corpuscular Hemoglobin 33.9 pg (27.0-31.0); Mean Corpuscular Volume 98.6 fL (78.0-98.0); Mean Platelet Volume 12.2 fL (7.4-10.4); Platelet Count 38 thou/uL (130-400); RBC Distribution Width 11.9 % (11.5-14.5); Red Blood Cell (RBC) Count 3.41 mill/uL (4.20-5.40)
[2020-05-05] MEDS: Mometasone 200 MCG/Formoterol 5 MCG 120 PUFF INHALER INH SCH ×2 (07:28→18:41)
[2020-05-05] MEDS: Cholecalciferol 1,000 UNITS (25 MCG) TAB PO SCH (08:55)
[2020-05-05] MEDS: metFORMIN 500 MG TAB PO SCH ×2 (08:55→19:58)
[2020-05-05] MEDS: Benzonatate 100 MG CAP PO SCH ×3 (08:55→19:48)
[2020-05-05] MEDS: Atorvastatin Calcium 40 MG TAB PO SCH (08:55)
[2020-05-05] MEDS: Saccharomyces boulardii 250 MG CAP PO SCH (08:55)
[2020-05-05] MEDS: Citalopram 20 MG TAB PO SCH (08:55)
[2020-05-05] MEDS: Ascorbic Acid 500 mg Chewable Tablet PO SCH (08:55)
[2020-05-05] MEDS: Stress 600 With Zinc 1 TAB PO SCH (08:56)
[2020-05-05] MEDS: Zinc Sulfate 220 MG CAP PO SCH (08:56)
[2020-05-05] MEDS: cloNIDine 0.1 MG TAB PO PRN (09:11)
--- NOTE | 2020-05-05 10:45 | PDOC.HOSPP ---
- Subjective Encounter Date: 05/05/20 Encounter Time: 10:44 Subjective: Ms. Muse was seen today in follow-up of respiratory failure due to COVID pneumonia. She does not have any new complaints. - Objective Vital Signs & Weight: Vital Signs (12 hours) Temp Pulse Resp Pulse Ox 05/05/20 08:00 97.6 F 05/05/20 07:26 92 22 H 94 L 05/05/20 04:00 97 F L 05/05/20 02:31 74 22 H 95 Weight Admit Weight 167 lb 9.6 oz Weight 167 lb 9.6 oz Most Recent Monitor Data Heart Rate from ECG 111 NIBP 119/76 NIBP BP-Mean 90 Respiration from ECG 24 SpO2 89 I&O: 05/04/20 05/05/20 05/06/20 06:59 06:59 06:59 Intake Total 1160 1455 Output Total 2125 2425 Balance -965 -780 Result Diagrams: 05/05/20 03:21 05/02/20 09:18 Additional Labs: Accuchecks 05/05/20 05/04/20 05/04/20 06:31 22:14 15:57 POC Glucose 163 H 185 H 189 H 05/04/20 11:55 POC Glucose 182 H Hospitalist ROS - Medication Medications: Active Medications Generic Name Dose Route Start Last Admin Trade Name Freq PRN Reason Stop Dose Admin Albuterol/Ipratropium 1 gm 04/29/20 13:00 05/05/20 07:28 Ipratropium/Albuterol Sulfate 4 Gm Aer IH Not Given [id number] MADELINE Ascorbic Acid 1,000 mg 05/01/20 09:00 05/05/20 08:55 Ascorbic Acid 500 Mg Chewable Tablet PO Not Given DAILY MADELINE Atorvastatin Calcium 40 mg 04/23/20 09:00 05/05/20 08:55 Atorvastatin Calcium 40 Mg Tab PO 40 mg DAILY MADELINE Administration Benzocaine 1 gm 04/29/20 02:47 05/01/20 08:25 Benzocaine (Dental) 20% 10 Gm Tube TOP 1 gm DAILYPRN PRN Administration Topical Anesthetic Benzonatate 100 mg 04/22/20 15:00 05/05/20 08:55 Benzonatate 100 Mg Cap PO 100 mg TID MADELINE Administration Cholecalciferol 2,000 units 04/25/20 09:00 05/05/20 08:55 Cholecalciferol 1,000 Units (25 Mcg) Tab PO Not Given DAILY MADELINE Citalopram Hydrobromide 40 mg 04/23/20 09:00 05/05/20 08:55 Citalopram 20 Mg Tab PO 40 mg DAILY MADELINE Administration Clonidine 0.1 mg 05/02/20 08:58 05/05/20 09:11 Clonidine 0.1 Mg Tab PO 0.1 mg Q4H PRN Administration SBP GREATER THAN 160 Guaifenesin/Codeine Phosphate 10 ml 04/22/20 10:55 04/25/20 03:34 Guaifenesin/Codeine Phosphate 200 Mg/20 Mg 10 Ml Ud Cup PO 10 ml Q6H PRN Administration Cough Insulin Human Lispro 0 units 04/24/20 22:15 05/04/20 06:24 Humalog 300 Units/3 Ml Vial SC 2 unit .MILD SLIDING SCALE PRN Administration Mild Correctional Scale Insulin Human Lispro 0 units 04/24/20 22:15 04/30/20 21:18 Humalog 300 Units/3 Ml Vial SC 2 unit .BEDTIME SLIDING SC PRN Administration Bedtime Correctional Scale Lorazepam 0.5 mg 05/02/20 08:59 05/03/20 09:33 Lorazepam 2 Mg/Ml Vial SLOW IVP 0.5 mg Q4H PRN Administration Anxiety/Agitation Melatonin 6 mg 04/22/20 11:58 05/01/20 21:56 Melatonin 3 Mg Tab PO 6 mg DAILY PRN Administration Insomnia Metformin HCl 500 mg 04/22/20 21:00 05/05/20 08:55 Metformin 500 Mg Tab PO 500 mg BID MADELINE Administration Methylprednisolone Sodium Succinate 40 mg 04/24/20 12:00 05/05/20 06:22 Methylprednisolone Sod Succ 40 Mg Vial IVP 40 mg Q6HR MADELINE Administration Mometasone Furoate/Formoterol Fumar 2 puff 04/24/20 18:30 05/05/20 07:28 Mometasone 200 Mcg/Formoterol 5 Mcg 120 Puff Inhaler INH Not Given BID-RT MADELINE Multivitamins/Zinc 1 tab 04/23/20 09:00 05/05/20 08:56 Stress 600 With Zinc 1 Tab PO Not Given DAILY MADELINE Saccharomyces Boulardii 250 mg 04/29/20 09:00 05/05/20 08:55 Saccharomyces Boulardii 250 Mg Cap PO Not Given DAILY MADELINE Sodium Chloride 10 ml 04/24/20 21:00 05/05/20 08:56 Flush - Normal Saline 10 Ml Syringe IVF 10 ml Q12HR MADELINE Administration Zinc Sulfate 220 mg 04/23/20 09:00 05/05/20 08:56 Zinc Sulfate 220 Mg Cap PO Not Given DAILY MADELINE - Exam Eye: PERRL, anicteric sclera Heart: RRR, no murmur, no gallops, no rubs, normal peripheral pulses Respiratory: rales (at both bases) Gastrointestinal: soft, non-tender, non-distended, normal bowel sounds, no palpable masses, no hepatomegaly Extremities: 1+ LE edema Hosp A/P (1) Acute respiratory failure due to COVID-19 Code(s): U07.1 - COVID-19; J96.00 - ACUTE RESPIRATORY FAILURE, UNSP W HYPOXIA OR HYPERCAPNIA Status: Acute (2) Diabetes Code(s): E11.9 - TYPE 2 DIABETES MELLITUS WITHOUT COMPLICATIONS Status: Acute Qualifiers: Diabetes mellitus type: type 2 Diabetes mellitus complication status: with out complication (3) History of lymphoma Code(s): Z85.79 - PRSNL HX OF [facility] OF LYMPHOID, HEMATPOETC & REL TISS Status: Chronic - Plan * Acute respiratory failure due to COVID pneumonia- her condition remains about the same * Will re-consult Pulmonology as he has not been able to be weaned from BiPAP * Continue - Solumedrol * Discontinue Cefepime * DM- blood glucose is stable * HTN- blood pressure has been labile- will schedule Clonidine * Prognosis is guarded
[2020-05-05] MEDS: HumaLOG 300 UNITS/3 ML VIAL SC PRN ×3 (11:50→20:30)
--- NOTE | 2020-05-05 12:55 | PRG ---
DATE OF SERVICE: 05/05/2020 SUBJECTIVE: Rosenda Muse is re-evaluated. I have been following her vital signs and her gas exchange. She is slowly declining from a gas exchange standpoint, requiring more support with BiPAP and tolerating taking off her BiPAP less well. Although, she does not have signs of muscle fatigue, I think we reached a point where she needs to be intubated. OBJECTIVE: VITAL SIGNS: Blood pressure 124/81, heart rates in the 80s, respiratory rates in the 20s. She is afebrile. LUNGS: Remarkable for equal breath sounds. HEART: Regular rhythm. ABDOMEN: Soft. LABORATORY DATA: White count is 10, hemoglobin 11.6, platelets 38,000. Glucoses have been in the high 100s and low 200s. Electrolytes have been checked since the . IMPRESSION: COVID pneumonia, not quickly improving. She is probably three weeks into this, so it is close to theoretically being removed from isolation. Anesthesia will be consulted for intubation per protocol. She will continue with current medical care. We will decrease her steroid dosing just a little bit at this point. I tried to contact the daughter by phone, but she did not answer her phone. Critical car e time 30 min. Job ID: [id number] MTDD
[2020-05-05] MEDS ORDERED: Propofol 1,000 MG/100 ML VIAL IV ONE (13:21)
[2020-05-05] MEDS ORDERED: PROPOFOL 200 MG/20 ML VIAL ONE (13:51)
[2020-05-05] MEDS ORDERED: Rocuronium Bromide 10 MG/ML (10ML VIAL) ONE (13:51)
[2020-05-05] MEDS ORDERED: Lorazepam 2 MG/ML VIAL ONE (14:09)
[2020-05-05] MEDS ORDERED: Fentanyl BOLUS 250 ML IVPB PRN (14:30)
[2020-05-05] MEDS ORDERED: DISCONTINUE PREVIOUS NARCOTIC PAIN MEDICATIONS AND BENZODIAZEPINES FS SCH (14:30)
[2020-05-05] MEDS ORDERED: Propofol BOLUS 1,000 MG/100 ML VIAL IV PRN (14:30)
[2020-05-05 14:36] LABS: Base Excess (BEa) 2.6 mEq/L (-2.0 to +3.0); Calcium, Ionized (arterial) 1.22 mmol/L (1.12-1.30); O2 Tension (PaO2), arterial 74.7 mmHg (> 70.0); Potassium - ABG Lab 4.41 mmol/L (3.70-5.30); pH, Arterial 7.37 (7.35-7.45)
[2020-05-05] MEDS: fentaNYL Citrate/PF 2,000 MCG in Sodium Chloride 0.9% 60 ML IV SCH (14:41)
[2020-05-05 14:43] LABS: Puncture Site RRA
[2020-05-05] MEDS: Lorazepam 2 MG/ML VIAL SLOW IVP PRN (14:48)
--- NOTE | 2020-05-05 14:56 | PRG ---
DATE OF SERVICE: 05/05/2020 ADDENDUM: I discussed intubation with the patient in great detail. She in a reasonably quick fashion told me she did want to be intubated. She appears to be coherent and competent to make these decisions at this point. Job ID: [id number]
[2020-05-05] MEDS: D5W-AA 4.25% with LYTES 1,000 ML IV SCH (15:56)
[2020-05-05] MEDS: Vecuronium 10 MG VIAL IV PRN (16:00)
[2020-05-05] MEDS: Propofol 1,000 MG/100 ML VIAL IV PRN (20:57)
[2020-05-05] MEDS: cloNIDine 0.1 MG TAB PO SCH (21:15)
[2020-05-06] MEDS: Ipratropium/Albuterol Sulfate 4 GM AER IH SCH ×5 (04:20→23:43)
[2020-05-06] MEDS: methylPREDNISolone Sod Succ 40 MG VIAL IVP SCH ×3 (05:28→22:41)
[2020-05-06] MEDS: HumaLOG 300 UNITS/3 ML VIAL SC PRN ×3 (05:40→21:30)
[2020-05-06 07:23] LABS: #Lymphocytes 0.3 thou/uL (1.20-3.40); #Monocytes 0.7 thou/uL (0.11-0.59); #Neutrophils 10.5 thou/uL (1.40-6.50); %Eosinophils 0.2 % (0.0-10.0); %Lymphocytes 2.5 % (21.0-51.0); %Monocytes 6.1 % (0.0-10.0); %Neutrophils 91.3 % (42.0-75.0); Hemoglobin 11.1 g/dL (12.0-16.0); Mean Corpuscular HGB CONC 34.1 g/dL (32.0-36.0); Mean Corpuscular Hemoglobin 33.9 pg (27.0-31.0); Mean Corpuscular Volume 99.7 fL (78.0-98.0); Mean Platelet Volume 11.9 fL (7.4-10.4); Platelet Count 43 thou/uL (130-400); RBC Distribution Width 11.8 % (11.5-14.5); Red Blood Cell (RBC) Count 3.28 mill/uL (4.20-5.40); White Blood Cell (WBC) Count 11.5 thou/uL (4.8-10.8)
[2020-05-06] MEDS: Mometasone 200 MCG/Formoterol 5 MCG 120 PUFF INHALER INH SCH ×2 (07:48→18:40)
[2020-05-06] MEDS: Citalopram 20 MG TAB PO SCH (08:02)
[2020-05-06] MEDS: Saccharomyces boulardii 250 MG CAP PO SCH (08:02)
[2020-05-06] MEDS: Ascorbic Acid 500 mg Chewable Tablet PO SCH (08:02)
[2020-05-06] MEDS: metFORMIN 500 MG TAB PO SCH ×2 (08:02→20:14)
[2020-05-06] MEDS: cloNIDine 0.1 MG TAB PO SCH ×2 (08:02→20:14)
[2020-05-06] MEDS: Atorvastatin Calcium 40 MG TAB PO SCH (08:03)
[2020-05-06] MEDS: Stress 600 With Zinc 1 TAB PO SCH (08:04)
[2020-05-06] MEDS: Zinc Sulfate 220 MG CAP PO SCH (08:04)
[2020-05-06] MEDS: Cholecalciferol 1,000 UNITS (25 MCG) TAB PO SCH (08:08)
[2020-05-06] MEDS: Benzonatate 100 MG CAP PO SCH ×3 (08:08→20:15)
--- NOTE | 2020-05-06 08:09 | PRG ---
DATE OF SERVICE: 05/06/2020 SUBJECTIVE: Ms. Muse was intubated last night for progressive respiratory failure in the setting of COVID pneumonia. This morning, she is on bilevel with pressure 32/12 with FiO2 of 65%. She has been placed in the prone position. Saturations are at best 93%. She is not requiring pressors. OBJECTIVE: VITAL SIGNS: Current blood pressure 103/65, heart rate is 71, respiratory rate is 20. GENERAL: She is intubated in prone position. LUNGS: Coarse rhonchi without wheezing or rales. HEART: Regular rate and rhythm. ABDOMEN: Bowel sounds are present. There is no tenderness. EXTREMITIES: Show no cords. There is no evidence of clubbing. LABORATORY DATA: White count today 11,500, hemoglobin is 11.1 with hematocrit of 32.7, platelet count is 43,000. I do not see an x-ray since intubation. IMPRESSION: 1. COVID pneumonia with progressive respiratory failure, now receiving ventilatory support. 2. Diabetes. 3. History of lymphoma. PLAN: She is currently intubated. We will need to begin feedings. I will initiate daily laboratory. We will get an x-ray to reassess now that she has been intubated. Critical care time, 35 minutes. Job ID: [id number]
[2020-05-06] MEDS: Propofol 1,000 MG/100 ML VIAL IV PRN ×2 (08:33→17:19)
[2020-05-06] MEDS: Vecuronium 10 MG VIAL IV PRN ×3 (09:02→15:58)
[2020-05-06] MEDS: fentaNYL Citrate/PF 2,000 MCG in Sodium Chloride 0.9% 60 ML IV SCH (09:57)
[2020-05-06] MEDS ORDERED: Sterile Water 10 ML ONE ×2 (14:00→15:53)
[2020-05-06] MEDS ORDERED: Pancrelipase DR 12,000 1 CAP FS PRN (15:45)
[2020-05-06] MEDS ORDERED: Sodium Bicarbonate Tab 325 MG TAB PER TUBE PRN (15:45)
[2020-05-06] MEDS: Lorazepam 2 MG/ML VIAL SLOW IVP PRN (16:11)
[2020-05-06] MEDS: D5W-AA 4.25% with LYTES 1,000 ML IV SCH (17:07)
--- NOTE | 2020-05-06 17:59 | PDOC.HOSPP ---
- Subjective Encounter Date: 05/06/20 Encounter Time: 12:00 Subjective: Patient seen for follow-up regarding COVID-19 pneumonia. Patient is intubated, could not complete review of systems. - Objective Vital Signs & Weight: Vital Signs (12 hours) Temp Pulse Resp BP Pulse Ox 05/06/20 16:00 20 05/06/20 14:15 104 H 05/06/20 14:00 20 05/06/20 13:00 98.1 F 05/06/20 12:00 20 05/06/20 10:34 99 05/06/20 10:00 20 05/06/20 08:02 113/68 05/06/20 08:00 98.0 F 20 90 L 05/06/20 07:49 77 05/06/20 06:00 20 Weight Admit Weight 167 lb 9.6 oz Weight 167 lb 9.6 oz Most Recent Monitor Data Heart Rate from ECG 112 NIBP 111/79 NIBP BP-Mean 89 Respiration from ECG 20 SpO2 90 I&O: 05/05/20 05/06/20 05/07/20 06:59 06:59 06:59 Intake Total 1455 1334.5 569 Output Total 2425 1665 290 Balance -970 -330.5 279 Result Diagrams: 05/06/20 06:40 05/02/20 09:18 Additional Labs: Accuchecks 05/06/20 05/05/20 05:34 20:25 POC Glucose 218 H 243 H I reviewed patient's labs and MAR EKG Reviewed by me: Yes (Normal sinus rhythm on telemetry) Hospitalist ROS - Review of Systems ROS unobtainable: due to endotracheal tube - Medication Medications: Active Medications Generic Name Dose Route Start Last Admin Trade Name Freq PRN Reason Stop Dose Admin Albuterol/Ipratropium 1 gm 04/29/20 13:00 05/06/20 14:02 Ipratropium/Albuterol Sulfate 4 Gm Aer IH 1 inh [id number] MADELINE Administration Ascorbic Acid 1,000 mg 05/01/20 09:00 05/06/20 08:02 Ascorbic Acid 500 Mg Chewable Tablet PO 1,000 mg DAILY MADELINE Administration Atorvastatin Calcium 40 mg 04/23/20 09:00 05/06/20 08:03 Atorvastatin Calcium 40 Mg Tab PO 40 mg DAILY MADELINE Administration Benzocaine 1 gm 04/29/20 02:47 05/01/20 08:25 Benzocaine (Dental) 20% 10 Gm Tube TOP 1 gm DAILYPRN PRN Administration Topical Anesthetic Benzonatate 100 mg 04/22/20 15:00 05/06/20 16:11 Benzonatate 100 Mg Cap PO Not Given TID MADELINE Cholecalciferol 2,000 units 04/25/20 09:00 05/06/20 08:08 Cholecalciferol 1,000 Units (25 Mcg) Tab PO 2,000 units DAILY MADELINE Administration Citalopram Hydrobromide 40 mg 04/23/20 09:00 05/06/20 08:02 Citalopram 20 Mg Tab PO 40 mg DAILY MADELINE Administration Clonidine 0.1 mg 05/02/20 08:58 05/05/20 09:11 Clonidine 0.1 Mg Tab PO 0.1 mg Q4H PRN Administration SBP GREATER THAN 160 Clonidine 0.1 mg 05/05/20 21:00 05/06/20 08:02 Clonidine 0.1 Mg Tab PO 0.1 mg BID MADELINE Administration Guaifenesin/Codeine Phosphate 10 ml 04/22/20 10:55 04/25/20 03:34 Guaifenesin/Codeine Phosphate 200 Mg/20 Mg 10 Ml Ud Cup PO 10 ml Q6H PRN Administration Cough Amino Acids/Electrolytes/Dextrose 1,000 mls @ 42 mls/hr 05/05/20 13:15 05/06/20 17:07 Clinimix E 4.25/5 IV 1,000 mls INF MADELINE Administration Fentanyl Citrate 2,000 mcg/ 100 mls @ 0 mls/hr 05/05/20 14:30 05/06/20 09:57 Sodium Chloride IV 06/04/20 14:30 100 mls INF MADELINE Administration Protocol Per Protocol Insulin Human Lispro 0 units 04/24/20 22:15 05/06/20 16:18 Humalog 300 Units/3 Ml Vial SC 3 unit .MILD SLIDING SCALE PRN Administration Mild Correctional Scale Insulin Human Lispro 0 units 04/24/20 22:15 05/05/20 20:30 Humalog 300 Units/3 Ml Vial SC 3 unit .BEDTIME SLIDING SC PRN Administration Bedtime Correctional Scale Lorazepam 0.5 mg 05/02/20 08:59 11/11/20 09:33 Lorazepam 2 Mg/Ml Vial SLOW IVP 0.5 mg Q4H PRN Administration Anxiety/Agitation Lorazepam 2 mg 05/05/20 14:30 05/06/20 16:11 Lorazepam 2 Mg/Ml Vial SLOW IVP 06/04/20 14:30 2 mg Q1H PRN Administration Breakthrough agitation Melatonin 6 mg 04/22/20 11:58 05/01/20 21:56 Melatonin 3 Mg Tab PO 6 mg DAILY PRN Administration Insomnia Metformin HCl 500 mg 04/22/20 21:00 05/06/20 08:02 Metformin 500 Mg Tab PO 500 mg BID MADELINE Administration Methylprednisolone Sodium Succinate 40 mg 05/05/20 14:00 05/06/20 13:52 Methylprednisolone Sod Succ 40 Mg Vial IVP 40 mg Q8HR MADELINE Administration Mometasone Furoate/Formoterol Fumar 2 puff 04/24/20 18:30 05/06/20 07:48 Mometasone 200 Mcg/Formoterol 5 Mcg 120 Puff Inhaler INH 2 puff BID-RT MADELINE Administration Multivitamins/Zinc 1 tab 04/23/20 09:00 05/06/20 08:04 Stress 600 With Zinc 1 Tab PO 1 tab DAILY MADELINE Administration Propofol 1,000 mg 05/05/20 14:30 05/06/20 17:19 Propofol 1,000 Mg/100 Ml Vial IV 06/04/20 14:30 1,000 mg INF PRN Administration TO ACHIEVE GOAL RASS Protocol Saccharomyces Boulardii 250 mg 04/29/20 09:00 05/06/20 08:02 Saccharomyces Boulardii 250 Mg Cap PO 250 mg DAILY MADELINE Administration Sodium Chloride 10 ml 04/24/20 21:00 05/06/20 08:09 Flush - Normal Saline 10 Ml Syringe IVF 10 ml Q12HR MADELINE Administration Vecuronium [place] 10 mg 05/05/20 14:21 05/06/20 15:58 Vecuronium 10 Mg Vial IV 10 mg Q1H PRN Administration PARALIZATION Zinc Sulfate 220 mg 04/23/20 09:00 05/06/20 08:04 Zinc Sulfate 220 Mg Cap PO 220 mg DAILY MADELINE Administration - Exam General - other findings: Intubated ENT: moist mucosa Neck: no thyromegaly Heart: RRR Respiratory: CTAB Gastrointestinal: soft Skin: no rashes Psychiatric - other findings: Unable to assess Hosp A/P - Plan -Assessment (1) Acute respiratory failure due to COVID-19 Code(s): U07.1 - COVID-19; J96.00 - ACUTE RESPIRATORY FAILURE, UNSP W HYPOXIA OR HYPERCAPNIA Status: Acute (2) Diabetes Code(s): E11.9 - TYPE 2 DIABETES MELLITUS WITHOUT COMPLICATIONS Status: Acute Qualifiers: Diabetes mellitus type: type 2 Diabetes mellitus complication status: without complication (3) History of lymphoma Code(s): Z85.79 - PRSNL HX OF [facility] NEOP[facility] OF LYMPHOID, HEMATPOETC & REL TISS Status: Chronic - Plan * Acute respiratory failure due to COVID pneumonia-patient was intubated last night, is mechanically ventilated. * Appreciate pulmonology service input. * Patient is on Solumedrol * Discontinue Cefepime * DM- blood glucose is stable * HTN-continue clonidine * Prognosis is guarded
[2020-05-07 03:56] LABS: #Lymphocytes 0.3 thou/uL (1.20-3.40); #Monocytes 0.7 thou/uL (0.11-0.59); #Neutrophils 12.4 thou/uL (1.40-6.50); %Basophils 0.1 % (0.0-1.0); %Eosinophils 0.2 % (0.0-10.0); %Lymphocytes 2.1 % (21.0-51.0); %Monocytes 5.3 % (0.0-10.0); %Neutrophils 92.3 % (42.0-75.0); Hemoglobin 11.3 g/dL (12.0-16.0); Mean Corpuscular HGB CONC 33.9 g/dL (32.0-36.0); Mean Corpuscular Hemoglobin 33.9 pg (27.0-31.0); Mean Platelet Volume 12.7 fL (7.4-10.4); Platelet Count 38 thou/uL (130-400); RBC Distribution Width 12.2 % (11.5-14.5); Red Blood Cell (RBC) Count 3.34 mill/uL (4.20-5.40); White Blood Cell (WBC) Count 13.4 thou/uL (4.8-10.8)
[2020-05-07 04:20] LABS: ALT (SGPT) 17 U/L (8-55); AST (SGOT) 12 U/L (5-34); Albumin 3.1 g/dL (3.4-4.8); Alkaline Phosphatase 64 U/L (40-110); Anion Gap 16 mmol/L (10-20); BUN (Urea Nitrogen) 41 mg/dL (9.8-20.1); Bilirubin, Total 0.6 mg/dL (0.2-1.2); Calc. Creatinine Clearance 78 mL/min (70-130); Calcium 8.8 mg/dL (7.8-10.44); Carbon Dioxide 27 mmol/L (23-31); Chloride 96 mmol/L (98-107); Estimated GFR-MDRD 73; Globulin 2.3 g/dL (2.4-3.5); Glucose 279 mg/dL (83-110); Potassium 4.9 mmol/L (3.5-5.1); Protein, Total 5.4 g/dL (6.0-8.3); Sodium 134 mmol/L (136-145)
[2020-05-07] MEDS: fentaNYL Citrate/PF 2,000 MCG in Sodium Chloride 0.9% 60 ML IV SCH ×2 (04:45→20:17)
[2020-05-07] MEDS: Propofol 1,000 MG/100 ML VIAL IV PRN ×2 (05:59→14:18)
[2020-05-07] MEDS: methylPREDNISolone Sod Succ 40 MG VIAL IVP SCH ×3 (06:01→21:23)
[2020-05-07] MEDS: HumaLOG 300 UNITS/3 ML VIAL SC PRN ×4 (06:15→21:40)
[2020-05-07 07:26] LABS: Base Excess (BEa) 2.6 mEq/L (-2.0 to +3.0); Calcium, Ionized (arterial) 1.22 mmol/L (1.12-1.30); O2 Tension (PaO2), arterial 78.4 mmHg (> 70.0); Potassium - ABG Lab 4.77 mmol/L (3.70-5.30); pH, Arterial 7.37 (7.35-7.45)
[2020-05-07 07:44] LABS: Puncture Site RBA
[2020-05-07] MEDS: Mometasone 200 MCG/Formoterol 5 MCG 120 PUFF INHALER INH SCH ×2 (07:45→19:37)
[2020-05-07] MEDS: Ipratropium/Albuterol Sulfate 4 GM AER IH SCH ×2 (07:46→14:25)
[2020-05-07] MEDS: Benzonatate 100 MG CAP PO SCH ×3 (08:07→21:23)
[2020-05-07] MEDS: Ascorbic Acid 500 mg Chewable Tablet PO SCH (08:07)
[2020-05-07] MEDS: Saccharomyces boulardii 250 MG CAP PO SCH (08:08)
[2020-05-07] MEDS: Citalopram 20 MG TAB PO SCH (08:08)
[2020-05-07] MEDS: metFORMIN 500 MG TAB PO SCH ×2 (08:08→21:23)
[2020-05-07] MEDS: cloNIDine 0.1 MG TAB PO SCH ×2 (08:08→21:26)
[2020-05-07] MEDS: Zinc Sulfate 220 MG CAP PO SCH (08:09)
[2020-05-07] MEDS: Atorvastatin Calcium 40 MG TAB PO SCH (08:09)
[2020-05-07] MEDS: Cholecalciferol 1,000 UNITS (25 MCG) TAB PO SCH (08:09)
[2020-05-07] MEDS: Stress 600 With Zinc 1 TAB PO SCH (08:11)
--- NOTE | 2020-05-07 10:01 | PRG ---
DATE OF SERVICE: 05/07/2020 SUBJECTIVE: There has not been a dramatic change in her status. She continues to receive paralytic therapy, intermittently added to her ongoing propofol regimen. This was given intermittently for control of more severe restlessness and agitation, which precipitates desaturations. Current ventilator settings include rate of 20, with bilevel 32/12 and FiO2 of 65%. PHYSICAL EXAMINATION: VITAL SIGNS: Current vital signs include blood pressure 110/62, heart rate is 95, respiratory rate is 20, and saturation 89% on the settings as above. LUNGS: Show bilateral coarse rhonchi. HEART: Regular rate and rhythm without murmur. ABDOMEN: Soft. Bowel sounds are normal. EXTREMITIES: There is 1+ ankle edema. There are no palpable cords or tenderness. LABORATORY DATA: White count today 13,400, hemoglobin is 11.3 with hematocrit 33.4, and platelet count 38,000. This has been in approximately the range for several days. Blood gas; 7.37, CO2 of 51, pO2 of 78, and bicarbonate of 29. Chemistry panel includes sodium 134, potassium 3.9, chloride 96, CO2 of 27, BUN 41, creatinine 0.78. Albumin is low. The other liver tests are unremarkable. Chest x-ray today shows chest tube in the right upper lung. Right upper chest, fixator rods are in place with elevation in the left hemidiaphragm, patchy consolidation most notable in the right mid lung. When compared to the previous chest x-ray dated 04/25, there is marked improvement in the consolidative pattern in all lung zones. IMPRESSION: 1. COVID pneumonia with respiratory failure. 2. History of lymphoma. 3. Diabetes. PLAN: We will continue current ventilator settings. We do not have a lot of room for any maneuvering with borderline saturation even on FiO2 of 65%. She will continue with current sedatives including intermittent use of paralytics. She is quite thrombocytopenic and as such, is not a candidate for anticoagulant therapy. Critical care time, 32 minutes. Job ID: [id number]
--- NOTE | 2020-05-07 11:09 | RAD ---
CHEST ONE VIEW: INDICATIONS: History of intubation. COMPARISON: 06/25/2019 FINDINGS: The patient is intubated with the ET tube tip seen approximately 2.1 cm above the level of the annette . There is a gastric catheter that projects below the left hemidiaphragm and in the region of the gas tric fundus. The air space disease seen bilaterally on the prior examination has improved. Some resid ual perihilar opacities remain, right greater than left. No pleural effusion or pneumothorax is evide nt. No acute osseous abnormality is evident. IMPRESSION: 1. Improving bilateral air space disease, most consistent with improving pneumonia. 2. Interval intubation and gastric catheter placement. POS: BH
--- NOTE | 2020-05-07 17:54 | PDOC.HOSPP ---
- Subjective Encounter Date: 05/07/20 Encounter Time: 15:00 Subjective: Seen for follow-up regarding acute hypoxic respiratory failure. Patient is currently intubated, in supine position. Could not complete review of systems. - Objective Vital Signs & Weight: Vital Signs (12 hours) Temp Pulse Resp BP Pulse Ox 05/07/20 16:00 97.9 F 20 05/07/20 14:25 87 05/07/20 14:00 20 05/07/20 12:00 20 05/07/20 11:00 97.9 F 05/07/20 10:28 83 05/07/20 10:00 20 05/07/20 08:08 113/63 05/07/20 08:00 98.4 F 05/07/20 07:52 20 88 L 05/07/20 07:46 101 H 05/07/20 06:00 20 Weight Admit Weight 167 lb 9.6 oz Weight 167 lb 9.6 oz Most Recent Monitor Data Heart Rate from ECG 85 NIBP 105/58 NIBP BP-Mean 73 Respiration from ECG 20 SpO2 91 I&O: 05/06/20 05/07/20 05/08/20 06:59 06:59 06:59 Intake Total 1334.5 1717.7 30 Output Total 1665 740 290 Balance -330.5 977.7 -260 Result Diagrams: 05/07/20 03:48 05/07/20 03:48 Additional Labs: Accuchecks 05/07/20 05/07/20 17:29 11:06 POC Glucose 267 H 286 H Labs and MAR reviewed by me EKG Reviewed by me: Yes (Telemetry shows normal sinus rhythm) Hospitalist ROS - Review of Systems ROS unobtainable: due to endotracheal tube - Medication Medications: Active Medications Generic Name Dose Route Start Last Admin Trade Name Freq PRN Reason Stop Dose Admin Ascorbic Acid 1,000 mg 05/01/20 09:00 05/07/20 08:07 Ascorbic Acid 500 Mg Chewable Tablet PO 1,000 mg DAILY MADELINE Administration Atorvastatin Calcium 40 mg 04/23/20 09:00 05/07/20 08:09 Atorvastatin Calcium 40 Mg Tab PO 40 mg DAILY MADELINE Administration Benzocaine 1 gm 04/29/20 02:47 05/01/20 08:25 Benzocaine (Dental) 20% 10 Gm Tube TOP 1 gm DAILYPRN PRN Administration Topical Anesthetic Benzonatate 100 mg 04/22/20 15:00 05/07/20 15:14 Benzonatate 100 Mg Cap PO 100 mg TID MADELINE Administration Cholecalciferol 2,000 units 04/25/20 09:00 05/07/20 08:09 Cholecalciferol 1,000 Units (25 Mcg) Tab PO 2,000 units DAILY MADELINE Administration Citalopram Hydrobromide 40 mg 04/23/20 09:00 05/07/20 08:08 Citalopram 20 Mg Tab PO 40 mg DAILY MADELINE Administration Clonidine 0.1 mg 05/02/20 08:58 05/05/20 09:11 Clonidine 0.1 Mg Tab PO 0.1 mg Q4H PRN Administration SBP GREATER THAN 160 Clonidine 0.1 mg 05/05/20 21:00 05/07/20 08:08 Clonidine 0.1 Mg Tab PO 0.1 mg BID MADELINE Administration Guaifenesin/Codeine Phosphate 10 ml 04/22/20 10:55 04/25/20 03:34 Guaifenesin/Codeine Phosphate 200 Mg/20 Mg 10 Ml Ud Cup PO 10 ml Q6H PRN Administration Cough Amino Acids/Electrolytes/Dextrose 1,000 mls @ 42 mls/hr 05/05/20 13:15 05/06/20 17:07 Clinimix E 4.25/5 IV 1,000 mls INF MADELINE Administration Fentanyl Citrate 2,000 mcg/ 100 mls @ 0 mls/hr 05/05/20 14:30 05/07/20 04:45 Sodium Chloride IV 06/04/20 14:30 100 mls INF MADELINE Administration Protocol Per Protocol Insulin Human Lispro 0 units 04/24/20 22:15 05/07/20 06:15 Humalog 300 Units/3 Ml Vial SC 4 unit .MILD SLIDING SCALE PRN Administration Mild Correctional Scale Insulin Human Lispro 0 units 04/24/20 22:15 05/05/20 20:30 Humalog 300 Units/3 Ml Vial SC 3 unit .BEDTIME SLIDING SC PRN Administration Bedtime Correctional Scale Lorazepam 0.5 mg 05/02/20 08:59 05/03/20 09:33 Lorazepam 2 Mg/Ml Vial SLOW IVP 0.5 mg Q4H PRN Administration Anxiety/Agitation Lorazepam 2 mg 05/05/20 14:30 05/06/20 16:11 Lorazepam 2 Mg/Ml Vial SLOW IVP 06/04/20 14:30 2 mg Q1H PRN Administration Breakthrough agitation Melatonin 6 mg 04/22/20 11:58 05/01/20 21:56 Melatonin 3 Mg Tab PO 6 mg DAILY PRN Administration Insomnia Metformin HCl 500 mg 04/22/20 21:00 05/07/20 08:08 Metformin 500 Mg Tab PO 500 mg BID MADELINE Administration Methylprednisolone Sodium Succinate 40 mg 05/05/20 14:00 05/07/20 14:18 Methylprednisolone Sod Succ 40 Mg Vial IVP 40 mg Q8HR MADELINE Administration Mometasone Furoate/Formoterol Fumar 2 puff 04/24/20 18:30 05/07/20 07:45 Mometasone 200 Mcg/Formoterol 5 Mcg 120 Puff Inhaler INH 2 puff BID-RT MADELINE Administration Multivitamins/Zinc 1 tab 04/23/20 09:00 05/07/20 08:11 Stress 600 With Zinc 1 Tab PO 1 tab DAILY MADELINE Administration Propofol 1,000 mg 05/05/20 14:30 05/07/20 14:18 Propofol 1,000 Mg/100 Ml Vial IV 06/04/20 14:30 1,000 mg INF PRN Administration TO ACHIEVE GOAL RASS Protocol Saccharomyces Boulardii 250 mg 04/29/20 09:00 05/07/20 08:08 Saccharomyces Boulardii 250 Mg Cap PO 250 mg DAILY MADELINE Administration Sodium Chloride 10 ml 04/24/20 21:00 05/07/20 08:10 Flush - Normal Saline 10 Ml Syringe IVF 10 ml Q12HR MADELINE Administration Vecuronium Simpson 10 mg 05/05/20 14:21 05/06/20 15:58 Vecuronium 10 Mg Vial IV 10 mg Q1H PRN Administration PARALIZATION Zinc Sulfate 220 mg 04/23/20 09:00 05/07/20 08:09 Zinc Sulfate 220 Mg Cap PO 220 mg DAILY MADELINE Administration - Exam General - other findings: Intubated and mechanically ventilated Heart: RRR Respiratory: CTAB Skin - other findings: Soft tissue injuries as documented Neurological - other findings: Unable to assess Psychiatric - other findings: Unable to assess Hosp A/P - Plan -Assessment (1) Acute respiratory failure due to COVID-19 Code(s): U07.1 - COVID-19; J96.00 - ACUTE RESPIRATORY FAILURE, UNSP W HYPOXIA OR HYPERCAPNIA Status: Acute (2) Diabetes Code(s): E11.9 - TYPE 2 DIABETES MELLITUS WITHOUT COMPLICATIONS Status: Acute Qualifiers: Diabetes mellitus type: type 2 Diabetes mellitus complication status: without complication (3) History of lymphoma Code(s): Z85.79 - PRSNL HX OF MALIG NEOPLM OF LYMPHOID, HEMATPOETC & REL TISS Status: Chronic - Plan * Acute respiratory failure due to COVID pneumonia-patient is currently intuba sisi and mechanically ventilated in the CCU. * Continue Solumedrol * Discontinue Cefepime * DM- blood glucose readings are high, start Lantus 5 units at bedtime and switch to moderate insulin sliding scale. * HTN-continue clonidine * Oral tube feeds * Prognosis is guarded
[2020-05-07] MEDS ORDERED: Insulin Glargine 5 UNITS in Pre-Filled Syringe SC SCH (21:00)
[2020-05-08] MEDS: Lorazepam 2 MG/ML VIAL SLOW IVP PRN ×3 (01:31→10:39)
[2020-05-08] MEDS: methylPREDNISolone Sod Succ 40 MG VIAL IVP SCH ×3 (05:46→22:15)
[2020-05-08] MEDS: Propofol 1,000 MG/100 ML VIAL IV PRN ×3 (06:06→22:07)
[2020-05-08] MEDS: Mometasone 200 MCG/Formoterol 5 MCG 120 PUFF INHALER INH SCH ×2 (06:47→18:43)
[2020-05-08 07:14] LABS: ALT (SGPT) 16 U/L (8-55); AST (SGOT) 12 U/L (5-34); Albumin 2.9 g/dL (3.4-4.8); Alkaline Phosphatase 56 U/L (40-110); Anion Gap 14 mmol/L (10-20); BUN (Urea Nitrogen) 39 mg/dL (9.8-20.1); Bilirubin, Total 0.4 mg/dL (0.2-1.2); Calc. Creatinine Clearance 90 mL/min (70-130); Calcium 8.7 mg/dL (7.8-10.44); Carbon Dioxide 30 mmol/L (23-31); Chloride 97 mmol/L (98-107); Estimated GFR-MDRD 85; Globulin 2.1 g/dL (2.4-3.5); Glucose 258 mg/dL (83-110); Potassium 4.8 mmol/L (3.5-5.1); Sodium 136 mmol/L (136-145)
[2020-05-08 07:15] LABS: #Lymphocytes 0.2 thou/uL (1.20-3.40); #Monocytes 0.4 thou/uL (0.11-0.59); #Neutrophils 7.7 thou/uL (1.40-6.50); %Eosinophils 0.3 % (0.0-10.0); %Lymphocytes 2.5 % (21.0-51.0); %Monocytes 4.9 % (0.0-10.0); %Neutrophils 92.3 % (42.0-75.0); Hemoglobin 9.3 g/dL (12.0-16.0); Mean Corpuscular HGB CONC 33.8 g/dL (32.0-36.0); Mean Corpuscular Hemoglobin 33.9 pg (27.0-31.0); Mean Platelet Volume 12.5 fL (7.4-10.4); Platelet Count 36 thou/uL (130-400); RBC Distribution Width 12.3 % (11.5-14.5); Red Blood Cell (RBC) Count 2.75 mill/uL (4.20-5.40); White Blood Cell (WBC) Count 8.4 thou/uL (4.8-10.8)
[2020-05-08] MEDS: metFORMIN 500 MG TAB PO SCH ×2 (07:19→20:15)
[2020-05-08] MEDS: Saccharomyces boulardii 250 MG CAP PO SCH (07:20)
[2020-05-08] MEDS: Ascorbic Acid 500 mg Chewable Tablet PO SCH (07:20)
[2020-05-08] MEDS: Atorvastatin Calcium 40 MG TAB PO SCH (07:20)
[2020-05-08] MEDS: Zinc Sulfate 220 MG CAP PO SCH (07:20)
[2020-05-08] MEDS: Citalopram 20 MG TAB PO SCH (07:20)
[2020-05-08] MEDS: Stress 600 With Zinc 1 TAB PO SCH (07:20)
[2020-05-08] MEDS: cloNIDine 0.1 MG TAB PO SCH ×2 (07:22→22:19)
[2020-05-08] MEDS: Cholecalciferol 1,000 UNITS (25 MCG) TAB PO SCH (07:22)
[2020-05-08] MEDS: Benzonatate 100 MG CAP PO SCH ×3 (07:22→20:15)
[2020-05-08 07:32] LABS: Actual Bicarbonate (HCO3a) 28.7 mEq/L (22-28); Analyzer IN Cardio ER; Base Excess (BEa) 2.9 mEq/L (-2.0 to +3.0); CO2 Tension 51.3 mmHg (35.0-45.0); Carboxyhemoglobin (COHb) 0.4 gm% (0.0-3.0); Hemoglobin (Hb) 8.1 g/dL (12.0-16.0); O2 Tension (PaO2), arterial 68.6 mmHg (> 70.0); Potassium - ABG Lab 4.55 mmol/L (3.70-5.30); pH, Arterial 7.37 (7.35-7.45)
--- NOTE | 2020-05-08 08:01 | RAD ---
Portable frontal chest radiograph: 05/08/2020 COMPARISON: 05/07/2020 HISTORY: Ventilated patient FINDINGS: Extensive postoperative spinal hardware present. Stable endotracheal tube and nasogastric t ube. Increased perihilar interstitial density again noted, right greater than left. Inspiration is shallow. No pneumothorax or lobar consolidation. IMPRESSION: No significant interval change.
[2020-05-08 09:08] LABS: ALV-art Gradient 330.725 mmHg (0-20)
--- NOTE | 2020-05-08 09:57 | PRG ---
DATE OF SERVICE: 05/08/2020 SUBJECTIVE: She is day 16 in the hospital with respiratory failure, bilateral bronchopneumonia secondary to coronavirus infection. OBJECTIVE: VITAL SIGNS: Her O2 saturation is at 96%. She is on bilevel FiO2. Her blood pressure is 107/58, temperature is 99, respiratory rate is 18, pulse 80. CHEST: Decreased breath sounds. No wheezing. CARDIAC: Normal S1, S2. No masses. IMPRESSION: Status post dutton-positive pneumonia, respiratory failure, kyphoscoliosis, bilateral rods, diabetes, history of lymphoma in the past. PLAN: Medications being adjusted. She is not weanable at this stage. She is on nutrition PT. I may consider restarting empiric antibiotics in the next day or two. This is one-half hour of critical time. Job ID: [id number]
[2020-05-08] MEDS: HumaLOG 300 UNITS/3 ML VIAL SC PRN ×2 (10:54→16:36)
[2020-05-08] MEDS: fentaNYL Citrate/PF 2,000 MCG in Sodium Chloride 0.9% 60 ML IV SCH (13:00)
--- NOTE | 2020-05-08 16:16 | PDOC.HOSPP ---
- Subjective Encounter Date: 05/08/20 Encounter Time: 10:00 Subjective: Pt seen for followup re: respiratory failure. Intubated, could not complete ROS. - Objective Vital Signs & Weight: Vital Signs (12 hours) Temp Pulse Resp BP Pulse Ox 05/08/20 14:15 81 97/57 L 05/08/20 14:08 77 20 97 05/08/20 11:52 99.1 F 05/08/20 10:10 81 107/60 05/08/20 09:35 20 05/08/20 08:00 20 95 05/08/20 07:22 104/56 L 05/08/20 07:04 87 104/56 L 05/08/20 07:00 99.0 F 05/08/20 06:43 78 20 96 05/08/20 06:00 20 05/08/20 05:00 97.2 F L Weight Admit Weight 167 lb 9.6 oz Weight 167 lb 9.6 oz Most Recent Monitor Data Heart Rate from ECG 95 NIBP 116/58 NIBP BP-Mean 77 Respiration from ECG 20 SpO2 91 I&O: 05/07/20 05/08/20 05/09/20 06:59 06:59 06:59 Intake Total 1717.7 2275.4 615.4 Output Total 740 830 895 Balance 977.7 1445.4 -279.6 Result Diagrams: 05/08/20 06:32 05/08/20 06:32 Additional Labs: Accuchecks 05/08/20 05/08/20 05/07/20 15:11 10:46 21:36 POC Glucose 231 H 292 H 298 H 05/07/20 05/06/20 05/06/20 17:29 20:39 16:12 POC Glucose 267 H 265 H 226 H 05/06/20 05/05/20 08:36 16:15 POC Glucose 209 H 215 H I reviewed labs and MAR EKG Reviewed by me: Yes (Tele: NSR) Hospitalist ROS - Review of Systems ROS unobtainable: due to endotracheal tube - Medication Medications: Active Medications Generic Name Dose Route Start Last Admin Trade Name Freq PRN Reason Stop Dose Admin Albuterol/Ipratropium 3 ml 05/07/20 19:00 05/08/20 14:08 Ipratropium/Albuterol Sulfate 3 Ml Neb NEB 3 ml [id number] MADELINE Administration Ascorbic Acid 1,000 mg 05/01/20 09:00 05/08/20 07:20 Ascorbic Acid 500 Mg Chewable Tablet PO 1,000 mg DAILY MADELINE Administration Atorvastatin Calcium 40 mg 04/23/20 09:00 05/08/20 07:20 Atorvastatin Calcium 40 Mg Tab PO 40 mg DAILY MADELINE Administration Benzocaine 1 gm 04/29/20 02:47 05/01/20 08:25 Benzocaine (Dental) 20% 10 Gm Tube TOP 1 gm DAILYPRN PRN Administration Topical Anesthetic Benzonatate 100 mg 04/22/20 15:00 05/08/20 11:36 Benzonatate 100 Mg Cap PO Not Given TID MADELINE Cholecalciferol 2,000 units 04/25/20 09:00 05/08/20 07:22 Cholecalciferol 1,000 Units (25 Mcg) Tab PO 2,000 units DAILY MADELINE Administration Citalopram Hydrobromide 40 mg 04/23/20 09:00 05/08/20 07:20 Citalopram 20 Mg Tab PO 40 mg DAILY MADELINE Administration Clonidine 0.1 mg 05/02/20 08:58 05/05/20 09:11 Clonidine 0.1 Mg Tab PO 0.1 mg Q4H PRN Administration SBP GREATER THAN 160 Clonidine 0.1 mg 05/05/20 21:00 05/08/20 07:22 Clonidine 0.1 Mg Tab PO Not Given BID MADELINE Guaifenesin/Codeine Phosphate 10 ml 04/22/20 10:55 04/25/20 03:34 Guaifenesin/Codeine Phosphate 200 Mg/20 Mg 10 Ml Ud Cup PO 10 ml Q6H PRN Administration Cough Amino Acids/Electrolytes/Dextrose 1,000 mls @ 42 mls/hr 05/05/20 13:15 05/06/20 17:07 Clinimix E 4.25/5 IV 1,000 mls INF MADELINE Administration Fentanyl Citrate 2,000 mcg/ 100 mls @ 0 mls/hr 05/05/20 14:30 05/08/20 13:00 Sodium Chloride IV 06/04/20 14:30 100 mls INF MADELINE Administration Protocol Per Protocol Insulin Glargine 5 units/ 0.05 mls @ 0 mls/hr 05/07/20 21:00 05/07/20 21:24 Miscellaneous Medication SC 0.05 mls HS MADELINE Administration Insulin Human Lispro 0 units 04/24/20 22:15 05/07/20 11:00 Humalog 300 Units/3 Ml Vial SC 4 unit .BEDTIME SLIDING SC PRN Administration Bedtime Correctional Scale Insulin Human Lispro 0 units 05/07/20 17:57 05/08/20 10:54 Humalog 300 Units/3 Ml Vial SC 4 unit .MODERATE SLIDING SC PRN Administration Moderate Correctional Scale Lorazepam 0.5 mg 05/02/20 08:59 05/03/20 09:33 Lorazepam 2 Mg/Ml Vial SLOW IVP 0.5 mg Q4H PRN Administration Anxiety/Agitation Lorazepam 2 mg 05/05/20 14:30 05/08/20 10:39 Lorazepam 2 Mg/Ml Vial SLOW IVP 06/04/20 14:30 2 mg Q1H PRN Administration Breakthrough agitation Melatonin 6 mg 04/22/20 11:58 05/01/20 21:56 Melatonin 3 Mg Tab PO 6 mg DAILY PRN Administration Insomnia Metformin HCl 500 mg 04/22/20 21:00 05/08/20 07:19 Metformin 500 Mg Tab PO 500 mg BID MADELINE Administration Methylprednisolone Sodium Succinate 40 mg 05/05/20 14:00 05/08/20 13:35 Methylprednisolone Sod Succ 40 Mg Vial IVP 40 mg Q8HR MADELINE Administration Mometasone Furoate/Formoterol Fumar 2 puff 04/24/20 18:30 05/08/20 06:47 Mometasone 200 Mcg/Formoterol 5 Mcg 120 Puff Inhaler INH 2 puff BID-RT MADELINE Administration Multivitamins/Zinc 1 tab 04/23/20 09:00 05/08/20 07:20 Stress 600 With Zinc 1 Tab PO 1 tab DAILY MADELINE Administration Propofol 1,000 mg 05/05/20 14:30 05/08/20 07:20 Propofol 1,000 Mg/100 Ml Vial IV 06/04/20 14:30 1,000 mg INF PRN Administration TO ACHIEVE GOAL RASS Protocol Saccharomyces Boulardii 250 mg 04/29/20 09:00 05/08/20 07:20 Saccharomyces Boulardii 250 Mg Cap PO 250 mg DAILY MADELINE Administration Sodium Chloride 10 ml 04/24/20 21:00 05/08/20 07:22 Flush - Normal Saline 10 Ml Syringe IVF 10 ml Q12HR MADELINE Administration Zinc Sulfate 220 mg 04/23/20 09:00 05/08/20 07:20 Zinc Sulfate 220 Mg Cap PO 220 mg DAILY MADELINE Administration - Exam General - other findings: Intubated ENT: normocephalic atraumatic ENT - other findings: ETT Heart: RRR Respiratory: CTAB Skin - other findings: facial wounds as documented Psychiatric - other findings: Could not assess Hosp A/P - Plan -Assessment (1) Acute respiratory failure due to COVID-19 Code(s): U07.1 - COVID-19; J96.00 - ACUTE RESPIRATORY FAILURE, UNSP W HYPOXIA OR HYPERCAPNIA Status: Acute (2) Diabetes Code(s): E11.9 - TYPE 2 DIABETES MELLITUS WITHOUT COMPLICATIONS Status: Acute Qualifiers: Diabetes mellitus type: type 2 Diabetes mellitus complication status: without complication (3) History of lymphoma Code(s): Z85.79 - PRSNL HX OF MALIG NEOPLM OF LYMPHOID, HEMATPOETC & REL TISS Status: Chronic - Plan * Acute respiratory failure due to COVID pneumonia-patient is currently intubated and mechanically ventilated in the CCU. * No significant change since yesterday. * Pt is on Solumedrol * DM- blood glucose readings are high, increase lantus to 10 units daily. Administer extra three units of Lantus today (total eight units) * HTN-continue clonidine * Oral tube feeds * Prognosis is guarded
[2020-05-08] MEDS ORDERED: Insulin Glargine 3 UNITS in Pre-Filled Syringe 1 EACH SC SCH (16:30)
[2020-05-09 03:45] LABS: #Lymphocytes 0.2 thou/uL (1.20-3.40); #Monocytes 0.5 thou/uL (0.11-0.59); %Eosinophils 0.4 % (0.0-10.0); %Lymphocytes 1.9 % (21.0-51.0); %Monocytes 4.6 % (0.0-10.0); %Neutrophils 93.1 % (42.0-75.0); Hemoglobin 9.4 g/dL (12.0-16.0); Mean Corpuscular HGB CONC 34.7 g/dL (32.0-36.0); Mean Corpuscular Hemoglobin 34.7 pg (27.0-31.0); Mean Corpuscular Volume 99.9 fL (78.0-98.0); Mean Platelet Volume 12.7 fL (7.4-10.4); Platelet Count 36 thou/uL (130-400); RBC Distribution Width 12.2 % (11.5-14.5); Red Blood Cell (RBC) Count 2.71 mill/uL (4.20-5.40); White Blood Cell (WBC) Count 9.7 thou/uL (4.8-10.8)
[2020-05-09 03:59] LABS: ALT (SGPT) 15 U/L (8-55); AST (SGOT) 12 U/L (5-34); Alkaline Phosphatase 60 U/L (40-110); Anion Gap 15 mmol/L (10-20); BUN (Urea Nitrogen) 41 mg/dL (9.8-20.1); Bilirubin, Total 0.4 mg/dL (0.2-1.2); Calc. Creatinine Clearance 88 mL/min (70-130); Calcium 8.7 mg/dL (7.8-10.44); Carbon Dioxide 29 mmol/L (23-31); Chloride 96 mmol/L (98-107); Estimated GFR-MDRD 84; Globulin 2.1 g/dL (2.4-3.5); Glucose 257 mg/dL (83-110); Potassium 4.5 mmol/L (3.5-5.1); Protein, Total 5.1 g/dL (6.0-8.3); Sodium 135 mmol/L (136-145)
[2020-05-09] MEDS: Stress 600 With Zinc 1 TAB PO SCH (07:12)
[2020-05-09] MEDS: metFORMIN 500 MG TAB PO SCH ×2 (07:13→20:03)
[2020-05-09] MEDS: Zinc Sulfate 220 MG CAP PO SCH (07:13)
[2020-05-09] MEDS: Propofol 1,000 MG/100 ML VIAL IV PRN ×2 (07:13→12:51)
[2020-05-09] MEDS: Citalopram 20 MG TAB PO SCH (07:13)
[2020-05-09] MEDS: Atorvastatin Calcium 40 MG TAB PO SCH (07:13)
[2020-05-09] MEDS: Ascorbic Acid 500 mg Chewable Tablet PO SCH (07:13)
[2020-05-09] MEDS: Saccharomyces boulardii 250 MG CAP PO SCH (07:13)
[2020-05-09] MEDS: Benzonatate 100 MG CAP PO SCH ×3 (07:14→20:02)
[2020-05-09] MEDS: methylPREDNISolone Sod Succ 40 MG VIAL IVP SCH ×3 (07:14→22:30)
[2020-05-09] MEDS: cloNIDine 0.1 MG TAB PO SCH ×2 (07:14→20:02)
[2020-05-09] MEDS: Lorazepam 2 MG/ML VIAL SLOW IVP PRN (07:19)
[2020-05-09] MEDS: Mometasone 200 MCG/Formoterol 5 MCG 120 PUFF INHALER INH SCH ×2 (07:39→18:18)
[2020-05-09 08:08] LABS: Actual Bicarbonate (HCO3a) 24.7 mEq/L (22-28); Analyzer IN Cardio ER; Base Excess (BEa) 1.9 mEq/L (-2.0 to +3.0); Calcium, Ionized (arterial) 1.19 mmol/L (1.12-1.30); Carboxyhemoglobin (COHb) 0.3 gm% (0.0-3.0); Hemoglobin (Hb) 6.9 g/dL (12.0-16.0); O2 Tension (PaO2), arterial 129.3 mmHg (> 70.0); Potassium - ABG Lab 4.33 mmol/L (3.70-5.30); pH, Arterial 7.52 (7.35-7.45)
[2020-05-09 08:18] LABS: Puncture Site LRA
--- NOTE | 2020-05-09 08:26 | RAD ---
CHEST 1 VIEW: Date: 05/09/2020 INDICATION: History of intubation. COMPARISON: Prior exam dated 05/08/2020. FINDINGS: Bilateral air space disease is stable. Patient remains intubated with gastric catheter placement. No pleural effusion or pneumothorax is evident. Instrumentation involving the thoracic spine is similar appearing. IMPRESSION: Stable exam. POS: BH
[2020-05-09] MEDS: fentaNYL Citrate/PF 2,000 MCG in Sodium Chloride 0.9% 60 ML IV SCH (08:33)
--- NOTE | 2020-05-09 08:33 | PRG ---
DATE OF SERVICE: 05/09/2020 SUBJECTIVE: Rosenda Muse is a 70-year-old female, who remains in the ICU, intubated in the vent. Every time her sedation is decreased, she starts to desaturate on bilevel, low PEEP is 10. OBJECTIVE: VITAL SIGNS: Blood pressure 107/58, respirations 20, saturations 99%, and afebrile. I's and O's consistently even. CHEST: No wheezing. No crackles. CARDIAC: Normal S1, S2. No gallops. ABDOMEN: Soft. LABORATORY DATA: White count 9000, platelet count is 36. She was thrombocytopenic. PO2 yesterday was 68, pCO2 of 50, pH 7.37. Lytes are normal. Bicarb is 40. ASSESSMENT: Respiratory failure, dutton positive pneumonia, diabetes, day #16 of vent. At this stage, it does not look like she is weanable. We are going to continue aggressive treatment including PT, supportive care. Avoid sedation. Empiric antibiotics. One-half hour of critical care time. Job ID: [id number]
[2020-05-09] MEDS: Cholecalciferol 1,000 UNITS (25 MCG) TAB PO SCH (08:36)
[2020-05-09] MEDS ORDERED: Insulin Glargine 10 UNITS in Pre-Filled Syringe 1 EACH SC SCH (09:00)
[2020-05-09] MEDS: HumaLOG 300 UNITS/3 ML VIAL SC PRN ×2 (11:13→15:35)
[2020-05-09] MEDS ORDERED: Sodium Chloride 0.9% (PF) 10 ML VIAL FS PRN (13:30)
--- NOTE | 2020-05-09 18:19 | PDOC.HOSPP ---
- Subjective Encounter Date: 05/09/20 Encounter Time: 14:00 Subjective: Patient seen for follow-up for acute hypoxic respiratory failure. Patient continues to be intubated. - Objective Vital Signs & Weight: Vital Signs (12 hours) Temp Pulse Resp BP Pulse Ox 05/09/20 18:10 80 05/09/20 14:54 87 115/65 05/09/20 14:53 103 H 20 96 05/09/20 11:46 99.0 F 05/09/20 10:34 83 109/65 05/09/20 07:37 20 95 05/09/20 07:14 107/58 L 05/09/20 06:54 109 H 123/71 05/09/20 06:53 104 H 20 92 L Weight Admit Weight 167 lb 9.6 oz Weight 167 lb 9.6 oz Most Recent Monitor Data Heart Rate from ECG 80 NIBP 106/68 NIBP BP-Mean 80 Respiration from ECG 19 SpO2 94 I&O: 05/08/20 05/09/20 05/10/20 06:59 06:59 06:59 Intake Total 2275.4 1799.2 505 Output Total 830 1790 575 Balance 1445.4 9.2 -70 Result Diagrams: 05/09/20 03:08 05/09/20 03:08 Additional Labs: Accuchecks 05/09/20 05/09/20 05/08/20 15:31 11:10 21:15 POC Glucose 244 H 263 H 261 H Labs and MAR reviewed by me EKG Reviewed by me: Yes (Telemetry shows normal sinus rhythm) Hospitalist ROS - Review of Systems ROS unobtainable: due to endotracheal tube - Medication Medications: Active Medications Generic Name Dose Route Start Last Admin Trade Name Freq PRN Reason Stop Dose Admin Albuterol/Ipratropium 3 ml 05/07/20 19:00 05/09/20 14:53 Ipratropium/Albuterol Sulfate 3 Ml Neb NEB 3 ml [id number] MADELINE Administration Ascorbic Acid 1,000 mg 05/01/20 09:00 05/09/20 07:13 Ascorbic Acid 500 Mg Chewable Tablet PO 1,000 mg DAILY MADELINE Administration Atorvastatin Calcium 40 mg 04/23/20 09:00 05/09/20 07:13 Atorvastatin Calcium 40 Mg Tab PO 40 mg DAILY MADELINE Administration Benzocaine 1 gm 04/29/20 02:47 05/01/20 08:25 Benzocaine (Dental) 20% 10 Gm Tube TOP 1 gm DAILYPRN PRN Administration Topical Anesthetic Benzonatate 100 mg 04/22/20 15:00 05/09/20 12:31 Benzonatate 100 Mg Cap PO Not Given TID MADELINE Cholecalciferol 2,000 units 04/25/20 09:00 05/09/20 08:36 Cholecalciferol 1,000 Units (25 Mcg) Tab PO 2,000 units DAILY MADELINE Administration Citalopram Hydrobromide 40 mg 04/23/20 09:00 05/09/20 07:13 Citalopram 20 Mg Tab PO 40 mg DAILY MADELINE Administration Clonidine 0.1 mg 05/02/20 08:58 05/05/20 09:11 Clonidine 0.1 Mg Tab PO 0.1 mg Q4H PRN Administration SBP GREATER THAN 160 Clonidine 0.1 mg 05/05/20 21:00 05/09/20 07:14 Clonidine 0.1 Mg Tab PO Not Given BID MADELINE Guaifenesin/Codeine Phosphate 10 ml 04/22/20 10:55 04/25/20 03:34 Guaifenesin/Codeine Phosphate 200 Mg/20 Mg 10 Ml Ud Cup PO 10 ml Q6H PRN Administration Cough Amino Acids/Electrolytes/Dextrose 1,000 mls @ 42 mls/hr 05/05/20 13:15 05/06/20 17:07 Clinimix E 4.25/5 IV 1,000 mls INF MADELINE Administration Fentanyl Citrate 2,000 mcg/ 100 mls @ 0 mls/hr 05/05/20 14:30 05/09/20 08:33 Sodium Chloride IV 06/04/20 14:30 100 mls INF MADELINE Administration Protocol Per Protocol Insulin Glargine 10 units/ 0.1 mls @ 0 mls/hr 05/09/20 09:00 05/09/20 08:33 Miscellaneous Medication SC 0.1 mls QAM MADELINE Administration Doxycycline Hyclate 100 mg/ 100 mls @ 0 mls/hr 05/09/20 09:00 05/09/20 08:58 Sodium Chloride IVPB 100 mls Q12HR MADELINE Administration Insulin Human Lispro 0 units 04/24/20 22:15 05/08/20 16:36 Humalog 300 Units/3 Ml Vial SC 2 unit .BEDTIME SLIDING SC PRN Administration Bedtime Correctional Scale Insulin Human Lispro 0 units 05/07/20 17:57 05/09/20 15:35 Humalog 300 Units/3 Ml Vial SC 4 unit .MODERATE SLIDING SC PRN Administration Moderate Correctional Scale Lorazepam 2 mg 05/05/20 14:30 05/09/20 07:19 Lorazepam 2 Mg/Ml Vial SLOW IVP 06/04/20 14:30 2 mg Q1H PRN Administration Breakthrough agitation Melatonin 6 mg 04/22/20 11:58 05/01/20 21:56 Melatonin 3 Mg Tab PO 6 mg DAILY PRN Administration Insomnia Metformin HCl 500 mg 04/22/20 21:00 05/09/20 07:13 Metformin 500 Mg Tab PO 500 mg BID MADELINE Administration Methylprednisolone Sodium Succinate 40 mg 05/05/20 14:00 05/09/20 12:31 Methylprednisolone Sod Succ 40 Mg Vial IVP 40 mg Q8HR MADELINE Administration Mometasone Furoate/Formoterol Fumar 2 puff 04/24/20 18:30 05/09/20 07:39 Mometasone 200 Mcg/Formoterol 5 Mcg 120 Puff Inhaler INH 2 puff BID-RT MADELINE Administration Multivitamins/Zinc 1 tab 04/23/20 09:00 05/09/20 07:12 Stress 600 With Zinc 1 Tab PO 1 tab DAILY MADELINE Administration Propofol 1,000 mg 05/05/20 14:30 05/09/20 12:51 Propofol 1,000 Mg/100 Ml Vial IV 06/04/20 14:30 1,000 mg INF PRN Administration TO ACHIEVE GOAL RASS Protocol Saccharomyces Boulardii 250 mg 04/29/20 09:00 05/09/20 07:13 Saccharomyces Boulardii 250 Mg Cap PO 250 mg DAILY MADELINE Administration Sodium Chloride 10 ml 04/24/20 21:00 05/09/20 07:14 Flush - Normal Saline 10 Ml Syringe IVF 10 ml Q12HR MADELINE Administration Zinc Sulfate 220 mg 04/23/20 09:00 05/09/20 07:13 Zinc Sulfate 220 Mg Cap PO 220 mg DAILY MADELINE Administration - Exam General - other findings: Intubated and mechanically ventilated ENT: moist mucosa ENT - other findings: ET tube Neck: no thyromegaly Heart: RRR Respiratory: CTAB Gastrointestinal: soft Skin: no rashes Psychiatric - other findings: Unable to assess Hosp A/P - Plan -Assessment (1) Acute respiratory failure due to COVID-19 Code(s): U07.1 - COVID-19; J96.00 - ACUTE RESPIRATORY FAILURE, UNSP W HYPOXIA OR HYPERCAPNIA Status: Acute (2) Diabetes Code(s): E11.9 - TYPE 2 DIABETES MELLITUS WITHOUT COMPLICATIONS Status: Acute Qualifiers: Diabetes mellitus type: type 2 Diabetes mellitus complication status: without complication (3) History of lymphoma Code(s): Z85.79 - PRSNL HX OF MALIG NEOPLM OF LYMPHOID, HEMATPOETC & REL TISS Status: Chronic - Plan * Acute respiratory failure due to COVID pneumonia-significant change since yesterday. * Continue Solumedrol * DM- blood glucose readings are high, increase lantus to 15 units daily. * HTN-continue clonidine * Oral tube feeds * Prognosis is guarded
[2020-05-09] MEDS ORDERED: Pantoprazole 40 MG VIAL IVP SCH (21:00)
[2020-05-10] MEDS: Propofol 1,000 MG/100 ML VIAL IV PRN ×3 (02:50→20:20)
[2020-05-10 03:56] LABS: #Lymphocytes 0.2 thou/uL (1.20-3.40); #Monocytes 0.4 thou/uL (0.11-0.59); #Neutrophils 8.7 thou/uL (1.40-6.50); %Eosinophils 0.4 % (0.0-10.0); %Lymphocytes 2.2 % (21.0-51.0); %Monocytes 4.2 % (0.0-10.0); %Neutrophils 93.2 % (42.0-75.0); Hemoglobin 9.3 g/dL (12.0-16.0); Mean Corpuscular HGB CONC 34.6 g/dL (32.0-36.0); Mean Corpuscular Hemoglobin 34.8 pg (27.0-31.0); Mean Platelet Volume 12.6 fL (7.4-10.4); Platelet Count 33 thou/uL (130-400); RBC Distribution Width 12.6 % (11.5-14.5); Red Blood Cell (RBC) Count 2.66 mill/uL (4.20-5.40); White Blood Cell (WBC) Count 9.3 thou/uL (4.8-10.8)
[2020-05-10 04:19] LABS: ALT (SGPT) 16 U/L (8-55); AST (SGOT) 16 U/L (5-34); Albumin 3.1 g/dL (3.4-4.8); Alkaline Phosphatase 58 U/L (40-110); Anion Gap 15 mmol/L (10-20); BUN (Urea Nitrogen) 36 mg/dL (9.8-20.1); Bilirubin, Total 0.6 mg/dL (0.2-1.2); Calc. Creatinine Clearance 95 mL/min (70-130); Calcium 8.5 mg/dL (7.8-10.44); Carbon Dioxide 28 mmol/L (23-31); Chloride 97 mmol/L (98-107); Estimated GFR-MDRD Greater than 90; Globulin 2.1 g/dL (2.4-3.5); Glucose 219 mg/dL (83-110); Potassium 4.6 mmol/L (3.5-5.1); Protein, Total 5.2 g/dL (6.0-8.3); Sodium 135 mmol/L (136-145)
[2020-05-10] MEDS: fentaNYL Citrate/PF 2,000 MCG in Sodium Chloride 0.9% 60 ML IV SCH (04:22)
[2020-05-10] MEDS: methylPREDNISolone Sod Succ 40 MG VIAL IVP SCH ×3 (06:52→21:26)
[2020-05-10] MEDS: Mometasone 200 MCG/Formoterol 5 MCG 120 PUFF INHALER INH SCH ×2 (07:35→18:13)
[2020-05-10 07:38] LABS: Actual Bicarbonate (HCO3a) 29.7 mEq/L (22-28); Base Excess (BEa) 4.4 mEq/L (-2.0 to +3.0); CO2 Tension 47.2 mmHg (35.0-45.0); Hemoglobin (Hb) 13.2 g/dL (12.0-16.0); Potassium - ABG Lab 4.17 mmol/L (3.70-5.30); pH, Arterial 7.42 (7.35-7.45)
[2020-05-10] MEDS: Cholecalciferol 1,000 UNITS (25 MCG) TAB PO SCH (07:40)
[2020-05-10] MEDS: Ascorbic Acid 500 mg Chewable Tablet PO SCH (07:41)
[2020-05-10] MEDS: metFORMIN 500 MG TAB PO SCH ×2 (07:41→20:12)
[2020-05-10] MEDS: Citalopram 20 MG TAB PO SCH (07:41)
[2020-05-10] MEDS: Stress 600 With Zinc 1 TAB PO SCH (07:41)
[2020-05-10] MEDS: Atorvastatin Calcium 40 MG TAB PO SCH (07:41)
[2020-05-10] MEDS: Saccharomyces boulardii 250 MG CAP PO SCH (07:41)
[2020-05-10] MEDS: cloNIDine 0.1 MG TAB PO SCH ×2 (07:42→20:12)
[2020-05-10] MEDS: Lorazepam 2 MG/ML VIAL SLOW IVP PRN ×4 (07:42→21:26)
[2020-05-10] MEDS: Benzonatate 100 MG CAP PO SCH ×3 (07:42→19:29)
[2020-05-10 07:43] LABS: O2 Tension (PaO2), arterial 49.9 mmHg (> 70.0); Puncture Site LRA
[2020-05-10] MEDS: Zinc Sulfate 220 MG CAP PO SCH (07:46)
[2020-05-10] MEDS: Insulin Glargine 15 UNITS in Pre-Filled Syringe 1 EACH SC SCH (08:17)
--- NOTE | 2020-05-10 09:02 | PRG ---
DATE OF SERVICE: 05/10/2020 SUBJECTIVE: Rosenda Muse is a 70-year-old female, remains intubated in the vent. She is day #17 in the ICU, not much progress. OBJECTIVE: VITAL SIGNS: Pulse 113, sats are 90%, low PEEP of 10, 70% FiO2, respirations 22, afebrile. I's and O's are good. CHEST: Rhonchi bilaterally. CARDIAC: Normal S1 and S2. No gallops. ABDOMEN: Soft. LABORATORY DATA: White count 9000, hemoglobin and hematocrit 9 and 26, platelet count is low 33,000 worsening. PO2 is 49, pCO2 , PEEP of 10. Electrolytes are normal. ASSESSMENT AND PLAN: Respiratory failure, dutton positive pneumonia, underlying lymphoma. She is not weanable at this stage. Discussed with the daughter. Long-term prognosis is guarded. She is going to make a decision next week regarding a trach and a PEG. In the meantime, we are going to continue all supportive care, nutrition, steroids, PT. One-half hour of critical time. Job ID: [id number]
[2020-05-10] MEDS: Famotidine/PF 20 mg/2ml Vial SLOW IVP SCH ×2 (09:21→20:13)
[2020-05-10] MEDS: HumaLOG 300 UNITS/3 ML VIAL SC PRN ×3 (10:49→20:42)
--- NOTE | 2020-05-10 17:18 | PDOC.HOSPP ---
- Subjective Encounter Date: 05/10/20 Encounter Time: 10:30 Subjective: Patient seen for follow-up regarding acute hypoxic respiratory failure. Patient is intubated and mechanically ventilated, could not complete review of systems. - Objective Vital Signs & Weight: Vital Signs (12 hours) Temp Pulse Resp BP Pulse Ox 05/10/20 15:56 99.2 F 05/10/20 14:48 98 109/70 05/10/20 14:47 95 32 H 91 L 05/10/20 11:24 21 H 05/10/20 10:48 99.3 F 05/10/20 10:38 105 H 126/70 05/10/20 07:42 116/74 05/10/20 07:27 18 92 L 05/10/20 07:16 108 H 116/74 05/10/20 07:12 110 H 24 H 94 L 05/10/20 06:00 18 Weight Admit Weight 167 lb 9.6 oz Weight 167 lb 9.6 oz Most Recent Monitor Data Heart Rate from ECG 93 NIBP 114/69 NIBP BP-Mean 84 Respiration from ECG 18 SpO2 94 I&O: 05/09/20 05/10/20 05/11/20 06:59 06:59 06:59 Intake Total 1799.2 565 Output Total 1790 675 465 Balance 9.2 -110 -465 Result Diagrams: 05/10/20 03:35 05/10/20 03:35 Additional Labs: Accuchecks 05/10/20 05/09/20 15:46 19:33 POC Glucose 237 H 224 H I reviewed patient's labs and MAR EKG Reviewed by me: Yes (Sinus tachycardia on telemetry) Hospitalist ROS - Review of Systems ROS unobtainable: due to endotracheal tube - Medication Medications: Active Medications Generic Name Dose Route Start Last Admin Trade Name Freq PRN Reason Stop Dose Admin Albuterol/Ipratropium 3 ml 05/07/20 19:00 05/10/20 14:47 Ipratropium/Albuterol Sulfate 3 Ml Neb NEB 3 ml [id number] MADELINE Administration Ascorbic Acid 1,000 mg 05/01/20 09:00 05/10/20 07:41 Ascorbic Acid 500 Mg Chewable Tablet PO 1,000 mg DAILY MADELINE Administration Atorvastatin Calcium 40 mg 04/23/20 09:00 05/10/20 07:41 Atorvastatin Calcium 40 Mg Tab PO 40 mg DAILY MADELINE Administration Benzocaine 1 gm 04/29/20 02:47 05/01/20 08:25 Benzocaine (Dental) 20% 10 Gm Tube TOP 1 gm DAILYPRN PRN Administration Topical Anesthetic Benzonatate 100 mg 04/22/20 15:00 05/10/20 12:54 Benzonatate 100 Mg Cap PO Not Given TID MADELINE Cholecalciferol 2,000 units 04/25/20 09:00 05/10/20 07:40 Cholecalciferol 1,000 Units (25 Mcg) Tab PO 2,000 units DAILY MADELINE Administration Citalopram Hydrobromide 40 mg 04/23/20 09:00 05/10/20 07:41 Citalopram 20 Mg Tab PO 40 mg DAILY MADELINE Administration Clonidine 0.1 mg 05/02/20 08:58 05/05/20 09:11 Clonidine 0.1 Mg Tab PO 0.1 mg Q4H PRN Administration SBP GREATER THAN 160 Clonidine 0.1 mg 05/05/20 21:00 05/10/20 07:42 Clonidine 0.1 Mg Tab PO Not Given BID MADELINE Famotidine 20 mg 05/10/20 09:00 05/10/20 09:21 Famotidine/Pf 20 Mg/2ml Vial SLOW IVP 20 mg BID MADELINE Administration Guaifenesin/Codeine Phosphate 10 ml 04/22/20 10:55 04/25/20 03:34 Guaifenesin/Codeine Phosphate 200 Mg/20 Mg 10 Ml Ud Cup PO 10 ml Q6H PRN Administration Cough Amino Acids/Electrolytes/Dextrose 1,000 mls @ 42 mls/hr 05/05/20 13:15 05/06/20 17:07 Clinimix E 4.25/5 IV 1,000 mls INF MADELINE Administration Fentanyl Citrate 2,000 mcg/ 100 mls @ 0 mls/hr 05/05/20 14:30 05/10/20 04:22 Sodium Chloride IV 06/04/20 14:30 100 mls INF MADELINE Administration Protocol Per Protocol Doxycycline Hyclate 100 mg/ 100 mls @ 0 mls/hr 05/09/20 09:00 05/10/20 08:40 Sodium Chloride IVPB 100 mls Q12HR MADELINE Administration Insulin Glargine 15 units/ 0.15 mls @ 0 mls/hr 05/10/20 09:00 05/10/20 08:17 Miscellaneous Medication SC 0.15 mls QAM MADELINE Administration Insulin Human Lispro 0 units 04/24/20 22:15 05/08/20 16:36 Humalog 300 Units/3 Ml Vial SC 2 unit .BEDTIME SLIDING SC PRN Administration Bedtime Correctional Scale Insulin Human Lispro 0 units 05/07/20 17:57 05/10/20 15:55 Humalog 300 Units/3 Ml Vial SC 4 unit .MODERATE SLIDING SC PRN Administration Moderate Correctional Scale Lorazepam 2 mg 05/05/20 14:30 05/10/20 16:00 Lorazepam 2 Mg/Ml Vial SLOW IVP 06/04/20 14:30 2 mg Q1H PRN Administration Breakthrough agitation Melatonin 6 mg 04/22/20 11:58 05/01/20 21:56 Melatonin 3 Mg Tab PO 6 mg DAILY PRN Administration Insomnia Metformin HCl 500 mg 04/22/20 21:00 05/10/20 07:41 Metformin 500 Mg Tab PO 500 mg BID MADELINE Administration Methylprednisolone Sodium Succinate 40 mg 05/05/20 14:00 05/10/20 12:54 Methylprednisolone Sod Succ 40 Mg Vial IVP 40 mg Q8HR MADELINE Administration Mometasone Furoate/Formoterol Fumar 2 puff 04/24/20 18:30 05/10/20 07:35 Mometasone 200 Mcg/Formoterol 5 Mcg 120 Puff Inhaler INH 2 puff BID-RT MADELINE Administration Multivitamins/Zinc 1 tab 04/23/20 09:00 05/10/20 07:41 Stress 600 With Zinc 1 Tab PO 1 tab DAILY MADELINE Administration Propofol 1,000 mg 05/05/20 14:30 05/10/20 07:48 Propofol 1,000 Mg/100 Ml Vial IV 06/04/20 14:30 1,000 mg INF PRN Administration TO ACHIEVE GOAL RASS Protocol Saccharomyces Boulardii 250 mg 04/29/20 09:00 05/10/20 07:41 Saccharomyces Boulardii 250 Mg Cap PO 250 mg DAILY MADELINE Administration Sodium Chloride 10 ml 04/24/20 21:00 05/10/20 07:45 Flush - Normal Saline 10 Ml Syringe IVF 10 ml Q12HR MADELINE Administration Zinc Sulfate 220 mg 04/23/20 09:00 05/10/20 07:46 Zinc Sulfate 220 Mg Cap PO 220 mg DAILY MADELINE Administration - Exam General - other findings: Debated ENT - other findings: Endotracheal tube Heart: RRR Respiratory: CTAB Skin: no rashes Psychiatric: normal affect Hosp A/P - Plan -Assessment (1) Acute respiratory failure due to COVID-19 Code(s): U07.1 - COVID-19; J96.00 - ACUTE RESPIRATORY FAILURE, UNSP W HYPOXIA OR HYPERCAPNIA Status: Acute (2) Diabetes Code(s): E11.9 - TYPE 2 DIABETES MELLITUS WITHOUT COMPLICATIONS Status: Acute Qualifiers: Diabetes mellitus type: type 2 Diabetes mellitus complication status: without complication (3) History of lymphoma Code(s): Z85.79 - PRSNL HX OF MALIG NEOPLM OF LYMPHOID, HEMATPOETC & REL TISS Status: Chronic - Plan * Acute respiratory failure due to COVID pneumonia-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 * Patient is on Solumedrol * DM- blood glucose readings are high, increase lantus to 20 units daily. * HTN-continue clonidine * Oral tube feeds * Prognosis guarded
[2020-05-10] MEDS ORDERED: Insulin Glargine 5 UNITS in Pre-Filled Syringe SC SCH (17:30)
[2020-05-11] MEDS: fentaNYL Citrate/PF 2,000 MCG in Sodium Chloride 0.9% 60 ML IV SCH ×2 (01:24→15:16)
[2020-05-11] MEDS: Lorazepam 2 MG/ML VIAL SLOW IVP PRN (02:17)
[2020-05-11] MEDS: Propofol 1,000 MG/100 ML VIAL IV PRN ×3 (04:53→20:19)
[2020-05-11] MEDS: HumaLOG 300 UNITS/3 ML VIAL SC PRN ×4 (05:31→21:18)
[2020-05-11] MEDS: Mometasone 200 MCG/Formoterol 5 MCG 120 PUFF INHALER INH SCH ×2 (06:46→18:40)
[2020-05-11 07:04] LABS: Actual Bicarbonate (HCO3a) 29.3 mEq/L (22-28); Base Excess (BEa) 3.5 mEq/L (-2.0 to +3.0); Calcium, Ionized (arterial) 1.21 mmol/L (1.12-1.30); Carboxyhemoglobin (COHb) 0.9 gm% (0.0-3.0); Hemoglobin (Hb) 8.7 g/dL (12.0-16.0); pH, Arterial 7.38 (7.35-7.45)
[2020-05-11 07:09] LABS: Puncture Site RRA
[2020-05-11 07:51] LABS: #Lymphocytes 0.3 thou/uL (1.20-3.40); #Monocytes 0.4 thou/uL (0.11-0.59); #Neutrophils 5.7 thou/uL (1.40-6.50); %Eosinophils 0.1 % (0.0-10.0); %Lymphocytes 4.7 % (21.0-51.0); %Monocytes 5.5 % (0.0-10.0); %Neutrophils 89.8 % (42.0-75.0); Hemoglobin 8.9 g/dL (12.0-16.0); Mean Corpuscular HGB CONC 33.2 g/dL (32.0-36.0); Mean Corpuscular Hemoglobin 33.7 pg (27.0-31.0); Mean Platelet Volume 12.8 fL (7.4-10.4); Platelet Count 31 thou/uL (130-400); RBC Distribution Width 12.8 % (11.5-14.5); Red Blood Cell (RBC) Count 2.64 mill/uL (4.20-5.40); White Blood Cell (WBC) Count 6.4 thou/uL (4.8-10.8)
[2020-05-11 08:09] LABS: ALT (SGPT) 18 U/L (8-55); AST (SGOT) 14 U/L (5-34); Albumin 2.9 g/dL (3.4-4.8); Alkaline Phosphatase 60 U/L (40-110); Anion Gap 13 mmol/L (10-20); BUN (Urea Nitrogen) 31 mg/dL (9.8-20.1); Bilirubin, Total 0.5 mg/dL (0.2-1.2); Calc. Creatinine Clearance 98 mL/min (70-130); Calcium 8.7 mg/dL (7.8-10.44); Carbon Dioxide 32 mmol/L (23-31); Chloride 97 mmol/L (98-107); Estimated GFR-MDRD Greater than 90; Globulin 2.2 g/dL (2.4-3.5); Glucose 210 mg/dL (83-110); Potassium 4.2 mmol/L (3.5-5.1); Protein, Total 5.1 g/dL (6.0-8.3); Sodium 138 mmol/L (136-145)
--- NOTE | 2020-05-11 08:32 | RAD ---
EXAM: Portable chest PROVIDED CLINICAL HISTORY: Respiratory insufficiency COMPARISON: 05/09/2020 FINDINGS: Significant interval change with respect to the prior examination is not apparent. IMPRESSION: As above.
[2020-05-11] MEDS ORDERED: Insulin Glargine 20 UNITS in Pre-Filled Syringe SC SCH (09:00)
[2020-05-11] MEDS: cloNIDine 0.1 MG TAB PO SCH ×3 (09:00→19:56)
[2020-05-11] MEDS: Atorvastatin Calcium 40 MG TAB PO SCH (09:17)
[2020-05-11] MEDS: metFORMIN 500 MG TAB PO SCH ×2 (09:17→20:14)
[2020-05-11] MEDS: Saccharomyces boulardii 250 MG CAP PO SCH (09:17)
[2020-05-11] MEDS: Ascorbic Acid 500 mg Chewable Tablet PO SCH (09:17)
[2020-05-11] MEDS: Zinc Sulfate 220 MG CAP PO SCH (09:17)
[2020-05-11] MEDS: Citalopram 20 MG TAB PO SCH (09:17)
[2020-05-11] MEDS: Famotidine 20 MG TAB PER TUBE SCH ×2 (09:18→20:14)
[2020-05-11] MEDS: Stress 600 With Zinc 1 TAB PO SCH (09:19)
[2020-05-11] MEDS: Insulin Glargine 15 UNITS in Pre-Filled Syringe 1 EACH SC SCH (09:25)
[2020-05-11] MEDS: Benzonatate 100 MG CAP PO SCH ×3 (09:32→19:56)
[2020-05-11] MEDS: Cholecalciferol 1,000 UNITS (25 MCG) TAB PO SCH (09:32)
[2020-05-11] MEDS: methylPREDNISolone Sod Succ 40 MG VIAL IVP SCH ×3 (14:20→20:15)
--- NOTE | 2020-05-11 17:06 | PDOC.HOSPP ---
- Subjective Encounter Date: 05/11/20 Encounter Time: 09:00 Subjective: Patient seen for follow-up regarding acute respiratory failure. Intubated, ROS could not be completed. - Objective Vital Signs & Weight: Vital Signs (12 hours) Temp Pulse Resp BP Pulse Ox 05/11/20 15:03 89 05/11/20 14:00 25 H 05/11/20 13:36 88 16 87 L 05/11/20 12:00 98.9 F 23 H 05/11/20 10:20 91 05/11/20 10:00 23 H 05/11/20 09:18 107/46 L 05/11/20 08:00 98.7 F 22 H 95 05/11/20 06:51 92 05/11/20 06:46 81 18 93 L 05/11/20 06:00 23 H Weight Admit Weight 167 lb 9.6 oz Weight 167 lb 9.6 oz Most Recent Monitor Data Heart Rate from ECG 102 NIBP 106/58 NIBP BP-Mean 74 Respiration from ECG 18 SpO2 91 I&O: 05/10/20 05/11/20 05/12/20 06:59 06:59 06:59 Intake Total 565 1267 Output Total 675 1250 305 Balance -110 17 -305 Result Diagrams: 05/11/20 07:37 05/11/20 07:37 Additional Labs: Accuchecks 05/11/20 05/10/20 05/10/20 05:00 20:26 10:38 POC Glucose 184 H 228 H 217 H Labs and MAR reviewed by me EKG Reviewed by me: Yes (Telemetry shows normal sinus rhythm) Hospitalist ROS - Review of Systems ROS unobtainable: due to endotracheal tube - Medication Medications: Active Medications Generic Name Dose Route Start Last Admin Trade Name Freq PRN Reason Stop Dose Admin Albuterol/Ipratropium 3 ml 05/07/20 19:00 05/11/20 13:36 Ipratropium/Albuterol Sulfate 3 Ml Neb NEB 3 ml [id number] MADELINE Administration Ascorbic Acid 1,000 mg 05/01/20 09:00 05/11/20 09:17 Ascorbic Acid 500 Mg Chewable Tablet PO 1,000 mg DAILY MADELINE Administration Atorvastatin Calcium 40 mg 04/23/20 09:00 05/11/20 09:17 Atorvastatin Calcium 40 Mg Tab PO 40 mg DAILY MADELINE Administration Benzocaine 1 gm 04/29/20 02:47 05/01/20 08:25 Benzocaine (Dental) 20% 10 Gm Tube TOP 1 gm DAILYPRN PRN Administration Topical Anesthetic Benzonatate 100 mg 04/22/20 15:00 05/11/20 15:19 Benzonatate 100 Mg Cap PO 100 mg TID MADELINE Administration Cholecalciferol 2,000 units 04/25/20 09:00 05/11/20 09:32 Cholecalciferol 1,000 Units (25 Mcg) Tab PO 2,000 units DAILY MADELINE Administration Citalopram Hydrobromide 40 mg 04/23/20 09:00 05/11/20 09:17 Citalopram 20 Mg Tab PO 40 mg DAILY MADELINE Administration Clonidine 0.1 mg 05/02/20 08:58 05/05/20 09:11 Clonidine 0.1 Mg Tab PO 0.1 mg Q4H PRN Administration SBP GREATER THAN 160 Clonidine 0.1 mg 05/05/20 21:00 05/11/20 09:18 Clonidine 0.1 Mg Tab PO 0.1 mg BID MADELINE Administration Famotidine 20 mg 05/11/20 09:00 05/11/20 09:18 Famotidine 20 Mg Tab PER TUBE 20 mg BID MADELINE Administration Guaifenesin/Codeine Phosphate 10 ml 04/22/20 10:55 04/25/20 03:34 Guaifenesin/Codeine Phosphate 200 Mg/20 Mg 10 Ml Ud Cup PO 10 ml Q6H PRN Administration Cough Amino Acids/Electrolytes/Dextrose 1,000 mls @ 42 mls/hr 05/05/20 13:15 05/06/20 17:07 Clinimix E 4.25/5 IV 1,000 mls INF MADELINE Administration Fentanyl Citrate 2,000 mcg/ 100 mls @ 0 mls/hr 05/05/20 14:30 05/11/20 15:16 Sodium Chloride IV 06/04/20 14:30 100 mls INF MADELINE Administration Protocol Per Protocol Doxycycline Hyclate 100 mg/ 100 mls @ 0 mls/hr 05/09/20 09:00 05/11/20 09:22 Sodium Chloride IVPB 100 mls Q12HR MADELINE Administration Insulin Glargine 20 units/ 0.2 mls @ 0 mls/hr 05/11/20 09:00 05/11/20 09:24 Miscellaneous Medication SC 0.2 mls QAM MADELINE Administration Insulin Human Lispro 0 units 04/24/20 22:15 05/08/20 16:36 Humalog 300 Units/3 Ml Vial SC 2 unit .BEDTIME SLIDING SC PRN Administration Bedtime Correctional Scale Insulin Human Lispro 0 units 05/07/20 17:57 05/11/20 11:39 Humalog 300 Units/3 Ml Vial SC 2 unit .MODERATE SLIDING SC PRN Administration Moderate Correctional Scale Lorazepam 2 mg 05/05/20 14:30 05/11/20 02:17 Lorazepam 2 Mg/Ml Vial SLOW IVP 06/04/20 14:30 2 mg Q1H PRN Administration Breakthrough agitation Melatonin 6 mg 04/22/20 11:58 05/01/20 21:56 Melatonin 3 Mg Tab PO 6 mg DAILY PRN Administration Insomnia Metformin HCl 500 mg 04/22/20 21:00 05/11/20 09:17 Metformin 500 Mg Tab PO 500 mg BID MADELINE Administration Methylprednisolone Sodium Succinate 40 mg 05/05/20 14:00 05/11/20 14:20 Methylprednisolone Sod Succ 40 Mg Vial IVP 40 mg Q8HR MADELINE Administration Mometasone Furoate/Formoterol Fumar 2 puff 04/24/20 18:30 05/11/20 06:46 Mometasone 200 Mcg/Formoterol 5 Mcg 120 Puff Inhaler INH 2 puff BID-RT MADELINE Administration Multivitamins/Zinc 1 tab 04/23/20 09:00 05/11/20 09:19 Stress 600 With Zinc 1 Tab PO 1 tab DAILY MADELINE Administration Propofol 1,000 mg 05/05/20 14:30 05/11/20 11:07 Propofol 1,000 Mg/100 Ml Vial IV 06/04/20 14:30 1,000 mg INF PRN Administration TO ACHIEVE GOAL RASS Protocol Saccharomyces Boulardii 250 mg 04/29/20 09:00 05/11/20 09:17 Saccharomyces Boulardii 250 Mg Cap PO 250 mg DAILY MADELINE Administration Sodium Chloride 10 ml 04/24/20 21:00 05/11/20 09:33 Flush - Normal Saline 10 Ml Syringe IVF 10 ml Q12HR MADELINE Administration Zinc Sulfate 220 mg 04/23/20 09:00 05/11/20 09:17 Zinc Sulfate 220 Mg Cap PO 220 mg DAILY MADELINE Administration - Exam General - other findings: Intubated and mechanically ventilated Heart: RRR Respiratory: CTAB Extremities: no cyanosis Neurological - other findings: Unable to assess Psychiatric - other findings: Unable to assess Hosp A/P - Plan -Assessment (1) Acute respiratory failure due to COVID-19 Code(s): U07.1 - COVID-19; J96.00 - ACUTE RESPIRATORY FAILURE, UNSP W HYPOXIA OR HYPERCAPNIA Status: Acute (2) Diabetes Code(s): E11.9 - TYPE 2 DIABETES MELLITUS WITHOUT COMPLICATIONS Status: Acute Qualifiers: Diabetes mellitus type: type 2 Diabetes mellitus complication status: without complication (3) History of lymphoma Code(s): Z85.79 - PRSNL HX OF MALIG NEOPLM OF LYMPHOID, HEMATPOETC & REL TISS Status: Chronic - Plan * Acute respiratory failure due to COVID pneumonia-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 * Continue Solumedrol * DM- blood glucose readings are high, increase lantus to 25 units daily. * HTN-continue clonidine * Oral tube feeds * Prognosis guarded
[2020-05-11] MEDS ORDERED: Insulin Glargine 5 UNITS in Pre-Filled Syringe SC SCH (17:30)
[2020-05-11] MEDS ORDERED: Sodium Chloride 0.9% 1,000 ML IV SCH (23:00)
[2020-05-12] MEDS: fentaNYL Citrate/PF 2,000 MCG in Sodium Chloride 0.9% 60 ML IV SCH ×2 (03:59→16:22)
[2020-05-12] MEDS: Propofol 1,000 MG/100 ML VIAL IV PRN ×3 (05:32→22:08)
[2020-05-12] MEDS: methylPREDNISolone Sod Succ 40 MG VIAL IVP SCH ×3 (05:33→19:42)
[2020-05-12] MEDS: HumaLOG 300 UNITS/3 ML VIAL SC PRN ×3 (05:55→21:21)
[2020-05-12 06:27] LABS: #Lymphocytes 0.1 thou/uL (1.20-3.40); #Monocytes 0.2 thou/uL (0.11-0.59); #Neutrophils 5.7 thou/uL (1.40-6.50); %Eosinophils 0.2 % (0.0-10.0); %Lymphocytes 1.9 % (21.0-51.0); %Monocytes 2.9 % (0.0-10.0); %Neutrophils 95.1 % (42.0-75.0); Hemoglobin 8.2 g/dL (12.0-16.0); Mean Corpuscular HGB CONC 33.5 g/dL (32.0-36.0); Mean Corpuscular Hemoglobin 34.3 pg (27.0-31.0); Platelet Count 28 thou/uL (130-400); Red Blood Cell (RBC) Count 2.38 mill/uL (4.20-5.40)
[2020-05-12 06:40] LABS: ALT (SGPT) 19 U/L (8-55); AST (SGOT) 16 U/L (5-34); Albumin 2.7 g/dL (3.4-4.8); Alkaline Phosphatase 63 U/L (40-110); Anion Gap 16 mmol/L (10-20); BUN (Urea Nitrogen) 29 mg/dL (9.8-20.1); Bilirubin, Total 0.5 mg/dL (0.2-1.2); Calc. Creatinine Clearance 103 mL/min (70-130); Calcium 8.4 mg/dL (7.8-10.44); Carbon Dioxide 29 mmol/L (23-31); Chloride 97 mmol/L (98-107); Estimated GFR-MDRD Greater than 90; Globulin 2.3 g/dL (2.4-3.5); Glucose 222 mg/dL (83-110); Potassium 3.9 mmol/L (3.5-5.1); Sodium 138 mmol/L (136-145)
[2020-05-12 07:02] LABS: Actual Bicarbonate (HCO3a) 33.2 mEq/L (22-28); Base Excess (BEa) 6.3 mEq/L (-2.0 to +3.0); Calcium, Ionized (arterial) 1.15 mmol/L (1.12-1.30); Carboxyhemoglobin (COHb) 0.4 gm% (0.0-3.0); Potassium - ABG Lab 3.78 mmol/L (3.70-5.30); pH, Arterial 7.35 (7.35-7.45)
[2020-05-12] MEDS: Mometasone 200 MCG/Formoterol 5 MCG 120 PUFF INHALER INH SCH ×2 (07:30→18:29)
[2020-05-12 07:31] LABS: CO2 Tension 61.3 mmHg (35.0-45.0)
[2020-05-12 07:32] LABS: ALV-art Gradient 439.975 mmHg (0-20); O2 Tension (PaO2), arterial 53.8 mmHg (> 70.0); Puncture Site RRA
[2020-05-12] MEDS: Benzonatate 100 MG CAP PO SCH ×3 (08:09→19:42)
[2020-05-12] MEDS: Cholecalciferol 1,000 UNITS (25 MCG) TAB PO SCH (08:09)
[2020-05-12] MEDS: Citalopram 20 MG TAB PO SCH (08:10)
[2020-05-12] MEDS: Ascorbic Acid 500 mg Chewable Tablet PO SCH (08:10)
[2020-05-12] MEDS: metFORMIN 500 MG TAB PO SCH ×2 (08:10→19:41)
[2020-05-12] MEDS: Saccharomyces boulardii 250 MG CAP PO SCH (08:10)
[2020-05-12] MEDS: Atorvastatin Calcium 40 MG TAB PO SCH (08:10)
[2020-05-12] MEDS: cloNIDine 0.1 MG TAB PO SCH ×2 (08:11→19:43)
[2020-05-12] MEDS: Famotidine 20 MG TAB PER TUBE SCH ×2 (08:11→19:41)
[2020-05-12] MEDS: Stress 600 With Zinc 1 TAB PO SCH (08:11)
[2020-05-12] MEDS: Zinc Sulfate 220 MG CAP PO SCH (08:11)
--- NOTE | 2020-05-12 08:35 | RAD ---
PORTABLE CHEST: Date: 05/12/2020 HISTORY: CCU follow-up, on ventilator. COMPARISON: 05/11/2020. FINDINGS: ET tube and NG tube unchanged. Diffuse hazy bilateral lung infiltrates are again noted, not significa ntly changed from yesterday. IMPRESSION: No acute interval change. POS: OFF
[2020-05-12] MEDS: Insulin Glargine 25 UNITS in Pre-Filled Syringe SC SCH (08:59)
--- NOTE | 2020-05-12 13:54 | PRG ---
DATE OF SERVICE: 05/11/2020 SUBJECTIVE: Rosenda Muse is a 70-year-old female who is intubated in the vent, sedated. X-ray still shows bilateral infiltrates. OBJECTIVE: VITAL SIGNS: Pulse 92, respirations 18, sats are 93% on 70% FiO2 and a PEEP of 10, blood pressure 109/57. I's and O's have been consistently negative. CHEST: Anterior rhonchi. CARDIAC: Normal S1, S2. No gallop. ABDOMEN: Soft. PO2 is 60, pCO2 51, 70%. White count 6000, H and H 8 and 26, platelet count was further decreased to 31,000. ASSESSMENT AND PLAN: 1. Coronavirus positive pneumonia and respiratory failure, day #19. 2. Diabetes, encephalopathy. Previous history of lymphoma. The patient is clearly not weanable. Family will have to make a decision regarding a trach and PEG next week. We are going to continue otherwise aggressive care, steroids, neb treatments. One-half hour of critical care time. Job ID: [id number]
--- NOTE | 2020-05-12 14:32 | PRG ---
DATE OF SERVICE: 05/12/2020 SUBJECTIVE: Rosenda Muse is a 70-year-old female, remains intubated in the vent, any kind of movement she desats. She is now PEEP of 10. Her sats are barely , pulse 79, blood pressure 101/51, respiratory rate 18, I's and O's even, temperature normal. CHEST: Rhonchi, crackles. CARDIAC: Normal S1 and S2. No gallop. ABDOMEN: No mass. LABORATORY DATA: Platelet count decreased to 28,000, hemoglobin and hematocrit of 8 and 24, white count 6000. PO2 of 53, pCO2 , PEEP of 10. Lytes are normal. ASSESSMENT AND PLAN: 1. Respiratory failure, dutton positive pneumonia. X-ray, no change. 2. Severe thrombocytopenia. 3. Previous lymphoma. I had previously discussed with her daughter, her prognosis is clear and grave, give supportive care for few more days and make a decision about comfort care and DNR status. One-half hour of critical care time. Job ID: [id number]
--- NOTE | 2020-05-12 15:27 | PDOC.PALPN ---
Palliative Progress Note - Subjective Intubated, mechanical ventilation, sedated. - Objective Vital Signs: Vital Signs - Most Recent Temp Pulse Resp BP Pulse Ox 98.0 F 79 18 101/56 L 90 L 05/12/20 12:00 05/12/20 07:33 05/12/20 14:00 05/12/20 08:11 05/12/20 08:00 - Physical Exam Constitutional: encephalitic, ill appearing HEENT: moist MMs Deviation from normal: bilaterally adventicious Cardiovascular: RRR Gastrointestinal: soft, non-tender, incontinent Genitourinary: sandoval catheter Musculoskeletal: edema present, diffuse muscle atrophy Deviation from normal: Sedated, no purposeful response Skin: cap refill <2 seconds Deviation from normal: encephalopathic - Assessment (1) Palliative care encounter Code(s): Z51.5 - ENCOUNTER FOR PALLIATIVE CARE Current Visit: Yes Status: Acute (2) Acute respiratory failure due to COVID-19 Code(s): U07.1 - COVID-19; J96.00 - ACUTE RESPIRATORY FAILURE, UNSP W HYPOXIA OR HYPERCAPNIA Current Visit: Yes Status: Acute (3) Diabetes Code(s): E11.9 - TYPE 2 DIABETES MELLITUS WITHOUT COMPLICATIONS Current Visit: Yes Status: Acute Qualifiers: Diabetes mellitus type: type 2 Diabetes mellitus complication status: without complication - Plan Plan: Daughter continues to be updated. Palliative care coordinated a meeting with daughter, Dr Almanza and spiritual care to discuss poor prognosis and identify goal of care. Patient may require a Trach/peg verses compassionate extubation. Will further discuss resuscitation status. Family meeting planned for 3pm, please also refer to Palliative Care notes in note section. [25] minutes spent on this encounter with >50% of the time in counseling and coordination of care. - ROS Non Response: due to endotracheal tube, due to mental status
--- NOTE | 2020-05-12 18:34 | PDOC.HOSPP ---
- Subjective Encounter Date: 05/12/20 Encounter Time: 18:30 Subjective: Patient seen for follow-up for hypoxic respiratory failure. She is intubated, could not complete review of systems. - Objective Vital Signs & Weight: Vital Signs (12 hours) Temp Pulse Resp BP Pulse Ox 05/12/20 18:28 93 28 H 91 L 05/12/20 18:00 18 05/12/20 16:00 97.7 F 18 05/12/20 14:00 18 05/12/20 12:00 98.0 F 18 05/12/20 10:00 18 05/12/20 08:11 101/56 L 05/12/20 08:00 97.5 F L 18 90 L 05/12/20 07:33 79 Weight Admit Weight 167 lb 9.6 oz Weight 167 lb 9.6 oz Most Recent Monitor Data Heart Rate from ECG 82 NIBP 109/56 NIBP BP-Mean 73 Respiration from ECG 15 SpO2 93 I&O: 05/11/20 05/12/20 05/13/20 06:59 06:59 06:59 Intake Total 1267 2157.6 669 Output Total 1250 570 695 Balance 17 1587.6 -26 Result Diagrams: 05/12/20 05:39 05/12/20 05:39 Additional Labs: Accuchecks 05/12/20 05/11/20 05/11/20 05:36 21:14 18:24 POC Glucose 231 H 195 H 199 H 05/11/20 11:14 POC Glucose 180 H I reviewed patient's labs and MAR EKG Reviewed by me: Yes (Normal sinus rhythm on telemetry) Hospitalist ROS - Review of Systems ROS unobtainable: due to endotracheal tube - Medication Medications: Active Medications Generic Name Dose Route Start Last Admin Trade Name Freq PRN Reason Stop Dose Admin Albuterol/Ipratropium 3 ml 05/07/20 19:00 05/12/20 18:28 Ipratropium/Albuterol Sulfate 3 Ml Neb NEB 3 ml [id number] MADELINE Administration Ascorbic Acid 1,000 mg 05/01/20 09:00 05/12/20 08:10 Ascorbic Acid 500 Mg Chewable Tablet PO 1,000 mg DAILY MADELINE Administration Atorvastatin Calcium 40 mg 04/23/20 09:00 05/12/20 08:10 Atorvastatin Calcium 40 Mg Tab PO 40 mg DAILY MADELINE Administration Benzocaine 1 gm 04/29/20 02:47 05/01/20 08:25 Benzocaine (Dental) 20% 10 Gm Tube TOP 1 gm DAILYPRN PRN Administration Topical Anesthetic Benzonatate 100 mg 04/22/20 15:00 05/12/20 16:03 Benzonatate 100 Mg Cap PO 100 mg TID MADELINE Administration Cholecalciferol 2,000 units 04/25/20 09:00 05/12/20 08:09 Cholecalciferol 1,000 Units (25 Mcg) Tab PO 2,000 units DAILY MADELINE Administration Citalopram Hydrobromide 40 mg 04/23/20 09:00 05/12/20 08:10 Citalopram 20 Mg Tab PO 40 mg DAILY MADELINE Administration Clonidine 0.1 mg 05/02/20 08:58 05/05/20 09:11 Clonidine 0.1 Mg Tab PO 0.1 mg Q4H PRN Administration SBP GREATER THAN 160 Clonidine 0.1 mg 05/05/20 21:00 05/12/20 08:11 Clonidine 0.1 Mg Tab PO 0.1 mg BID MADELINE Administration Famotidine 20 mg 05/11/20 09:00 05/12/20 08:11 Famotidine 20 Mg Tab PER TUBE 20 mg BID MADELINE Administration Guaifenesin/Codeine Phosphate 10 ml 04/22/20 10:55 04/25/20 03:34 Guaifenesin/Codeine Phosphate 200 Mg/20 Mg 10 Ml Ud Cup PO 10 ml Q6H PRN Administration Cough Fentanyl Citrate 2,000 mcg/ 100 mls @ 0 mls/hr 05/05/20 14:30 05/12/20 16:22 Sodium Chloride IV 06/04/20 14:30 100 mls INF MADELINE Administration Protocol Per Protocol Doxycycline Hyclate 100 mg/ 100 mls @ 0 mls/hr 05/09/20 09:00 05/12/20 08:58 Sodium Chloride IVPB 100 mls Q12HR MADELINE Administration Insulin Glargine 25 units/ 0.25 mls @ 0 mls/hr 05/12/20 09:00 05/12/20 08:59 Miscellaneous Medication SC 0.25 mls QAM MADELINE Administration Insulin Human Lispro 0 units 04/24/20 22:15 05/08/20 16:36 Humalog 300 Units/3 Ml Vial SC 2 unit .BEDTIME SLIDING SC PRN Administration Bedtime Correctional Scale Insulin Human Lispro 0 units 05/07/20 17:57 05/12/20 11:38 Humalog 300 Units/3 Ml Vial SC 2 unit .MODERATE SLIDING SC PRN Administration Moderate Correctional Scale Lorazepam 2 mg 05/05/20 14:30 05/11/20 02:17 Lorazepam 2 Mg/Ml Vial SLOW IVP 06/04/20 14:30 2 mg Q1H PRN Administration Breakthrough agitation Melatonin 6 mg 04/22/20 11:58 05/01/20 21:56 Melatonin 3 Mg Tab PO 6 mg DAILY PRN Administration Insomnia Metformin HCl 500 mg 04/22/20 21:00 05/12/20 08:10 Metformin 500 Mg Tab PO 500 mg BID MADELINE Administration Methylprednisolone Sodium Succinate 40 mg 05/05/20 14:00 05/12/20 13:19 Methylprednisolone Sod Succ 40 Mg Vial IVP 40 mg Q8HR MADELINE Administration Mometasone Furoate/Formoterol Fumar 2 puff 04/24/20 18:30 05/12/20 18:29 Mometasone 200 Mcg/Formoterol 5 Mcg 120 Puff Inhaler INH 2 puff BID-RT MADELINE Administration Multivitamins/Zinc 1 tab 04/23/20 09:00 05/12/20 08:11 Stress 600 With Zinc 1 Tab PO 1 tab DAILY MADELINE Administration Propofol 1,000 mg 05/05/20 14:30 05/12/20 15:39 Propofol 1,000 Mg/100 Ml Vial IV 06/04/20 14:30 1,000 mg INF PRN Administration TO ACHIEVE GOAL RASS Protocol Saccharomyces Boulardii 250 mg 04/29/20 09:00 05/12/20 08:10 Saccharomyces Boulardii 250 Mg Cap PO 250 mg DAILY MADELINE Administration Sodium Chloride 10 ml 04/24/20 21:00 05/12/20 08:12 Flush - Normal Saline 10 Ml Syringe IVF 10 ml Q12HR MADELINE Administration Zinc Sulfate 220 mg 04/23/20 09:00 05/12/20 08:11 Zinc Sulfate 220 Mg Cap PO 220 mg DAILY MADELINE Administration - Exam General - other findings: Intubated Neck - other findings: Endotracheal tube Heart: RRR Respiratory - other findings: Bilateral crackles Skin: no rashes Neurological - other findings: Unable to assess Psychiatric - other findings: Unable to assess Hosp A/P - Plan -Assessment Patient is a 70-year-old lady who was admitted to the hospital on April 22, 2020 for COVID-19 pneumonia. She has a history of lymphoma in remission. She was initially treated with high flow nasal cannula oxygen. She received remdesivir and Decadron. She did not improve. She was intubated on the night of May 05. No significant change since then. On May 12 she has been made DNAR. Family will decide regarding terminal extubation over the weekend and if so the extubation will be on May 15. 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 * Patient is on Solumedrol * DM- blood glucose readings are high, switch to aggressive insulin sliding scale. * HTN-continue clonidine * Oral tube feeds * Prognosis guarded
[2020-05-13] MEDS: Propofol 1,000 MG/100 ML VIAL IV PRN ×3 (03:32→21:17)
[2020-05-13 04:09] LABS: #Lymphocytes 0.1 thou/uL (1.20-3.40); #Monocytes 0.2 thou/uL (0.11-0.59); #Neutrophils 4.3 thou/uL (1.40-6.50); %Lymphocytes 2.3 % (21.0-51.0); %Monocytes 3.3 % (0.0-10.0); %Neutrophils 94.3 % (42.0-75.0); Hemoglobin 8.2 g/dL (12.0-16.0); Mean Corpuscular HGB CONC 33.2 g/dL (32.0-36.0); Mean Platelet Volume 13.2 fL (7.4-10.4); Platelet Count 28 thou/uL (130-400); Red Blood Cell (RBC) Count 2.41 mill/uL (4.20-5.40); White Blood Cell (WBC) Count 4.5 thou/uL (4.8-10.8)
[2020-05-13 04:19] LABS: ALT (SGPT) 20 U/L (8-55); AST (SGOT) 21 U/L (5-34); Albumin 2.6 g/dL (3.4-4.8); Alkaline Phosphatase 64 U/L (40-110); Anion Gap 15 mmol/L (10-20); BUN (Urea Nitrogen) 29 mg/dL (9.8-20.1); Bilirubin, Total 0.4 mg/dL (0.2-1.2); Calc. Creatinine Clearance 105 mL/min (70-130); Calcium 8.3 mg/dL (7.8-10.44); Carbon Dioxide 31 mmol/L (23-31); Chloride 97 mmol/L (98-107); Estimated GFR-MDRD Greater than 90; Globulin 2.4 g/dL (2.4-3.5); Glucose 167 mg/dL (83-110); Sodium 139 mmol/L (136-145)
[2020-05-13] MEDS: methylPREDNISolone Sod Succ 40 MG VIAL IVP SCH ×2 (04:42→16:09)
[2020-05-13] MEDS: fentaNYL Citrate/PF 2,000 MCG in Sodium Chloride 0.9% 60 ML IV SCH ×2 (04:56→18:17)
[2020-05-13] MEDS: HumaLOG 300 UNITS/3 ML VIAL SC PRN ×2 (04:57→22:46)
[2020-05-13 07:09] LABS: Actual Bicarbonate (HCO3a) 30.3 mEq/L (22-28); Base Excess (BEa) 4.5 mEq/L (-2.0 to +3.0); CO2 Tension 52.7 mmHg (35.0-45.0); Calcium, Ionized (arterial) 1.16 mmol/L (1.12-1.30); Carboxyhemoglobin (COHb) 0.9 gm% (0.0-3.0); Hemoglobin (Hb) 7.4 g/dL (12.0-16.0); O2 Tension (PaO2), arterial 69.9 mmHg (> 70.0); Potassium - ABG Lab 3.88 mmol/L (3.70-5.30); pH, Arterial 7.38 (7.35-7.45)
[2020-05-13 07:29] LABS: Puncture Site RRA
[2020-05-13 07:30] LABS: ALV-art Gradient 577.225 mmHg (0-20)
[2020-05-13] MEDS: Mometasone 200 MCG/Formoterol 5 MCG 120 PUFF INHALER INH SCH ×2 (07:30→19:56)
--- NOTE | 2020-05-13 08:01 | RAD ---
Chest one view HISTORY: Pneumonia. Follow-up. COMPARISON: 05/12/2020. FINDINGS: Cardiac silhouette is magnified by projection. Pulmonary vasculature is upper limits of nor mal. Mediastinum is midline with postoperative changes of the spine and aortic calcification. Lines and tu bes are unchanged in position. Ill-defined patchy groundglass infiltrate throughout each lung, most pronounced at the right infrahil ar level, similar in appearance to the previous exam. No evidence of pneumothorax. IMPRESSION : Multifocal infiltrates and other findings are stable.
[2020-05-13] MEDS: Insulin Glargine 25 UNITS in Pre-Filled Syringe SC SCH (09:00)
[2020-05-13] MEDS: Atorvastatin Calcium 40 MG TAB PO SCH (09:00)
[2020-05-13] MEDS: Citalopram 20 MG TAB PO SCH (09:00)
[2020-05-13] MEDS: cloNIDine 0.1 MG TAB PO SCH ×2 (09:03→21:14)
[2020-05-13] MEDS: Ascorbic Acid 500 mg Chewable Tablet PO SCH (09:03)
[2020-05-13] MEDS: Stress 600 With Zinc 1 TAB PO SCH (09:04)
[2020-05-13] MEDS: Saccharomyces boulardii 250 MG CAP PO SCH (09:04)
[2020-05-13] MEDS: Benzonatate 100 MG CAP PO SCH ×3 (09:04→21:15)
[2020-05-13] MEDS: metFORMIN 500 MG TAB PO SCH ×2 (09:04→21:15)
[2020-05-13] MEDS: Cholecalciferol 1,000 UNITS (25 MCG) TAB PO SCH (09:04)
[2020-05-13] MEDS: Famotidine 20 MG TAB PER TUBE SCH ×2 (09:04→21:15)
--- NOTE | 2020-05-13 09:09 | PRG ---
DATE OF SERVICE: 05/13/2020 SUBJECTIVE: Rosenda Muse is a 70-year-old female, remains in ICU, intubated in the vent. She was made a DNR yesterday. OBJECTIVE: VITAL SIGNS: Temperature is 98.4, pulse 94, respiratory rate 24, saturations are 92% on 100% FiO2, 13 PEEP. Blood pressure 118/58. She is sedated. CHEST: Rhonchi, crackles. CARDIAC: Normal S1 and S2. No mass. ABDOMEN: Soft. LABORATORY DATA: White count 4000, platelet count is 28. PO2 of 69, PCO2 of 52, BUN 38 on a bilevel. 100% . X-ray shows bilateral infiltrates. ASSESSMENT: 1. Respiratory failure, dutton-positive pneumonia. 2. History of baseline lymphoma. I had a discussion with the patient's family at length, yesterday with the daughter, they made a DNR. They may consider comfort care, extubation next week. In the meantime, we will continue supportive care. One-half hour of critical time. Job ID: [id number]
[2020-05-13] MEDS: Zinc Sulfate 220 MG CAP PO SCH (09:12)
--- NOTE | 2020-05-13 12:17 | PDOC.HOSPP ---
- Subjective Encounter Date: 05/13/20 Encounter Time: 12:17 non-verbal Subjective: Ms. Rosenda Muse is an unfortunate 70-year-old woman who was admitted about a month ago now for COVID-19 pneumonia. She unfortunately has went into respiratory failure and is intubated. I am told by nursing staff the family has elected for her to go on comfort measures. They will likely begin to withdraw care by Friday. - Objective Vital Signs & Weight: Vital Signs (12 hours) Temp Pulse Resp BP Pulse Ox 05/13/20 10:11 80 05/13/20 10:00 18 05/13/20 09:03 118/62 05/13/20 08:00 97.9 F 18 92 L 05/13/20 07:31 94 05/13/20 07:30 94 24 H 91 L 05/13/20 04:00 98.4 F 24 H 05/13/20 02:00 20 Weight Admit Weight 167 lb 9.6 oz Weight 167 lb 9.6 oz Most Recent Monitor Data Heart Rate from ECG 84 NIBP 127/66 NIBP BP-Mean 86 Respiration from ECG 17 SpO2 93 I&O: 05/12/20 05/13/20 05/14/20 06:59 06:59 06:59 Intake Total 2157.6 1615 Output Total 570 1265 280 Balance 1587.6 350 -280 Result Diagrams: 05/13/20 03:04 05/13/20 03:04 Additional Labs: Accuchecks 05/13/20 05/13/20 05/12/20 11:37 04:50 20:08 POC Glucose 145 H 198 H 162 H Radiology Reviewed by me: Yes EKG Reviewed by me: Yes Hospitalist ROS - Review of Systems ROS unobtainable: due to endotracheal tube Respiratory: reports: wheezing All other systems reviewed; all pertinent +/- noted in HPI/Subj - Medication Medications: Active Medications Generic Name Dose Route Start Last Admin Trade Name Freq PRN Reason Stop Dose Admin Albuterol/Ipratropium 3 ml 05/07/20 19:00 05/13/20 07:30 Ipratropium/Albuterol Sulfate 3 Ml Neb NEB 3 ml [id number] MADELINE Administration Ascorbic Acid 1,000 mg 05/01/20 09:00 05/13/20 09:03 Ascorbic Acid 500 Mg Chewable Tablet PO 1,000 mg DAILY MADELINE Administration Atorvastatin Calcium 40 mg 04/23/20 09:00 05/13/20 09:00 Atorvastatin Calcium 40 Mg Tab PO 40 mg DAILY MADELINE Administration Benzocaine 1 gm 04/29/20 02:47 05/01/20 08:25 Benzocaine (Dental) 20% 10 Gm Tube TOP 1 gm DAILYPRN PRN Administration Topical Anesthetic Benzonatate 100 mg 04/22/20 15:00 05/13/20 09:04 Benzonatate 100 Mg Cap PO 100 mg TID MADELINE Administration Cholecalciferol 2,000 units 04/25/20 09:00 05/13/20 09:04 Cholecalciferol 1,000 Units (25 Mcg) Tab PO 2,000 units DAILY MADELINE Administration Citalopram Hydrobromide 40 mg 04/23/20 09:00 05/13/20 09:00 Citalopram 20 Mg Tab PO 40 mg DAILY MADELINE Administration Clonidine 0.1 mg 05/02/20 08:58 05/05/20 09:11 Clonidine 0.1 Mg Tab PO 0.1 mg Q4H PRN Administration SBP GREATER THAN 160 Clonidine 0.1 mg 05/05/20 21:00 05/13/20 09:03 Clonidine 0.1 Mg Tab PO 0.1 mg BID MADELINE Administration Famotidine 20 mg 05/11/20 09:00 05/13/20 09:04 Famotidine 20 Mg Tab PER TUBE 20 mg BID MADELINE Administration Guaifenesin/Codeine Phosphate 10 ml 04/22/20 10:55 04/25/20 03:34 Guaifenesin/Codeine Phosphate 200 Mg/20 Mg 10 Ml Ud Cup PO 10 ml Q6H PRN Administration Cough Fentanyl Citrate 2,000 mcg/ 100 mls @ 0 mls/hr 05/05/20 14:30 05/13/20 04:56 Sodium Chloride IV 06/04/20 14:30 100 mls INF MADELINE Administration Protocol Per Protocol Doxycycline Hyclate 100 mg/ 100 mls @ 0 mls/hr 05/09/20 09:00 05/13/20 09:05 Sodium Chloride IVPB 100 mls Q12HR MADELINE Administration Insulin Glargine 25 units/ 0.25 mls @ 0 mls/hr 05/12/20 09:00 05/13/20 09:00 Miscellaneous Medication SC 0.25 mls QAM MADELINE Administration Insulin Human Lispro 0 units 04/24/20 22:15 05/08/20 16:36 Humalog 300 Units/3 Ml Vial SC 2 unit .BEDTIME SLIDING SC PRN Administration Bedtime Correctional Scale Insulin Human Lispro 0 units 05/12/20 18:35 05/13/20 04:57 Humalog 300 Units/3 Ml Vial SC 3 unit .AGGRESSIVE SLIDING PRN Administration Aggressive Correctional Scale Lorazepam 2 mg 05/05/20 14:30 05/11/20 02:17 Lorazepam 2 Mg/Ml Vial SLOW IVP 06/04/20 14:30 2 mg Q1H PRN Administration Breakthrough agitation Melatonin 6 mg 04/22/20 11:58 05/01/20 21:56 Melatonin 3 Mg Tab PO 6 mg DAILY PRN Administration Insomnia Metformin HCl 500 mg 04/22/20 21:00 05/13/20 09:04 Metformin 500 Mg Tab PO 500 mg BID MADELINE Administration Mometasone Furoate/Formoterol Fumar 2 puff 04/24/20 18:30 05/13/20 07:30 Mometasone 200 Mcg/Formoterol 5 Mcg 120 Puff Inhaler INH 2 puff BID-RT MADELINE Administration Multivitamins/Zinc 1 tab 04/23/20 09:00 05/13/20 09:04 Stress 600 With Zinc 1 Tab PO 1 tab DAILY MADELINE Administration Propofol 1,000 mg 05/05/20 14:30 05/13/20 03:32 Propofol 1,000 Mg/100 Ml Vial IV 06/04/20 14:30 1,000 mg INF PRN Administration TO ACHIEVE GOAL RASS Protocol Saccharomyces Boulardii 250 mg 04/29/20 09:00 05/13/20 09:04 Saccharomyces Boulardii 250 Mg Cap PO 250 mg DAILY MADELINE Administration Sodium Chloride 10 ml 04/24/20 21:00 05/13/20 09:12 Flush - Normal Saline 10 Ml Syringe IVF 10 ml Q12HR MADELINE Administration Zinc Sulfate 220 mg 04/23/20 09:00 05/13/20 09:12 Zinc Sulfate 220 Mg Cap PO 220 mg DAILY MADELINE Administration - Exam General Appearance: ill appearing Eye: PERRL, anicteric sclera ENT: normocephalic atraumatic, dry oral mucosa Neck: supple, symmetric, no JVD Heart: RRR, no murmur, no gallops, no rubs, normal peripheral pulses Respiratory: rhonchi, tachypneic, wheezes Gastrointestinal: soft, non-tender, non-distended Neurological - other findings: intubated, unable to fully examine Psychiatric: not oriented, somnolent, lethargic Hosp A/P (1) Acute respiratory failure due to COVID-19 Code(s): U07.1 - COVID-19; J96.00 - ACUTE RESPIRATORY FAILURE, UNSP W HYPOXIA OR HYPERCAPNIA Status: Acute Plan: Secondary to Covid pneumonia. Remains on life supportive measures. I am told by nursing staff the family has elected for her to go on comfort care and will likely start terminal weaning by Friday. (2) COVID-19 Code(s): U07.1 - COVID-19 Status: Acute (3) Diabetes Code(s): E11.9 - TYPE 2 DIABETES MELLITUS WITHOUT COMPLICATIONS Status: Acute Qualifiers: Diabetes mellitus type: type 2 Diabetes mellitus complication status: without complication (4) Diarrhea Code(s): R19.7 - DIARRHEA, UNSPECIFIED Status: Resolved (5) History of lymphoma Code(s): Z85.79 - PRSNL HX OF MALIG NEOPLM OF LYMPHOID, HEMATPOETC & REL TISS Status: Chronic - Plan #1. Acute hypoxic respiratory failure secondary to Covid pneumonia. She currently is on high flow nasal cannula. We will continue this for now. Her prognosis is guarded at best. 04/24/2020. She remains on a high flow nasal cannula. She seems to be doing okay. We will continue this for now and wean as tolerated. 04/25/2020. Unfortunately it appears that she deteriorated earlier today and is now on BiPAP. We appreciate pulmonary for the ongoing help. 04/26/2020. She is on BiPAP alternating with high flow nasal cannula. We will continue this for now. 2. COVID-19 pneumonia. Continue supportive care, IV empiric antibiotics, zinc sulfate and vitamin C. 04/24/2020. We will continue empiric antibiotics. Continue supportive care for the Covid pneumonia. 04/25/2020. She continues to tolerate her antibiotics well. Cultures are negative to date. Continue supportive care as above. 3. History of chronic lymphocytic leukemia. This is chronic. She appears to be in remission.
--- NOTE | 2020-05-13 13:07 | EKG ---
Test Reason : Blood Pressure : / mmHG Vent. Rate : 089 BPM Atrial Rate : 089 BPM P-R Int : 150 ms QRS Dur : 090 ms QT Int : 382 ms P-R-T Axes : 034 014 024 degrees QTc Int : 464 ms Normal sinus rhythm Normal ECG Confirmed by DA PRITCHETT ([id number]), writer editor YENNIFER TORREZ ([id number]) on 05/13/2020 1:07:07 PM Referred By: Confirmed By:DA PRITCHETT
[2020-05-14] MEDS: Propofol 1,000 MG/100 ML VIAL IV PRN ×2 (01:51→11:22)
[2020-05-14 03:39] LABS: ALT (SGPT) 22 U/L (8-55); AST (SGOT) 36 U/L (5-34); Albumin 2.5 g/dL (3.4-4.8); Alkaline Phosphatase 66 U/L (40-110); Anion Gap 14 mmol/L (10-20); BUN (Urea Nitrogen) 28 mg/dL (9.8-20.1); Bilirubin, Total 0.4 mg/dL (0.2-1.2); Calc. Creatinine Clearance 111 mL/min (70-130); Calcium 8.5 mg/dL (7.8-10.44); Carbon Dioxide 32 mmol/L (23-31); Chloride 98 mmol/L (98-107); Estimated GFR-MDRD Greater than 90; Globulin 2.4 g/dL (2.4-3.5); Glucose 143 mg/dL (83-110); Potassium 3.7 mmol/L (3.5-5.1); Protein, Total 4.9 g/dL (6.0-8.3); Sodium 140 mmol/L (136-145)
[2020-05-14 03:59] LABS: Platelet Count 28 thou/uL (130-400)
[2020-05-14 04:00] LABS: #Lymphocytes 0.1 thou/uL (1.20-3.40); #Monocytes 0.1 thou/uL (0.11-0.59); #Neutrophils 3.3 thou/uL (1.40-6.50); %Basophils 0.4 % (0.0-1.0); %Eosinophils 0.3 % (0.0-10.0); %Lymphocytes 2.9 % (21.0-51.0); %Monocytes 3.3 % (0.0-10.0); %Neutrophils 93.1 % (42.0-75.0); Hemoglobin 8.4 g/dL (12.0-16.0); Mean Corpuscular HGB CONC 33.9 g/dL (32.0-36.0); Mean Corpuscular Hemoglobin 35.3 pg (27.0-31.0); Mean Platelet Volume 11.6 fL (7.4-10.4); RBC Distribution Width 13.2 % (11.5-14.5); Red Blood Cell (RBC) Count 2.38 mill/uL (4.20-5.40); White Blood Cell (WBC) Count 3.5 thou/uL (4.8-10.8)
[2020-05-14] MEDS: methylPREDNISolone Sod Succ 40 MG VIAL IVP SCH (05:32)
[2020-05-14 07:30] LABS: Actual Bicarbonate (HCO3a) 32.4 mEq/L (22-28); Base Excess (BEa) 6.9 mEq/L (-2.0 to +3.0); CO2 Tension 51.6 mmHg (35.0-45.0); Calcium, Ionized (arterial) 1.14 mmol/L (1.12-1.30); Carboxyhemoglobin (COHb) 1.1 gm% (0.0-3.0); Hemoglobin (Hb) 9.6 g/dL (12.0-16.0); pH, Arterial 7.42 (7.35-7.45)
[2020-05-14 07:55] LABS: O2 Tension (PaO2), arterial 49.5 mmHg (> 70.0); Puncture Site RRA
[2020-05-14] MEDS: Mometasone 200 MCG/Formoterol 5 MCG 120 PUFF INHALER INH SCH (07:58)
--- NOTE | 2020-05-14 09:13 | PRG ---
DATE OF SERVICE: 05/14/2020 SUBJECTIVE: Rosenda Muse remains in the ICU, intubated in the vent, pretty much unresponsive. OBJECTIVE: VITAL SIGNS: Heart rate 125, saturation is only 82% on 100% and a PEEP of 11, blood pressure 146/61, unresponsive. CHEST: No wheezing, no crackles. CARDIAC: Sinus tach. ABDOMEN: Soft. Neurologic: She is sedated. LABORATORY DATA: White count 3000, platelet count 28,000. PO2 is 49, pCO2 of 51, pH 7.42 on a bilevel, low PEEP of 11. X-ray yesterday showed bilateral infiltrates. ASSESSMENT: Respiratory failure secondary to coronavirus pneumonia, ARDS. PLAN: She is clearly terminal stage. We discussed with the family at length, comfort care. One-half hour of critical time. Job ID: [id number]
[2020-05-14] MEDS: fentaNYL Citrate/PF 2,000 MCG in Sodium Chloride 0.9% 60 ML IV SCH (09:36)
[2020-05-14] MEDS: Morphine 2 MG/ML VIAL SLOW IVP PRN ×4 (09:36→15:23)
[2020-05-14] MEDS: Saccharomyces boulardii 250 MG CAP PO SCH (09:55)
[2020-05-14] MEDS: Citalopram 20 MG TAB PO SCH (09:55)
[2020-05-14] MEDS: cloNIDine 0.1 MG TAB PO SCH (09:55)
[2020-05-14] MEDS: Famotidine 20 MG TAB PER TUBE SCH (09:56)
[2020-05-14] MEDS: Ascorbic Acid 500 mg Chewable Tablet PO SCH (09:56)
[2020-05-14] MEDS: metFORMIN 500 MG TAB PO SCH (09:56)
[2020-05-14] MEDS: Zinc Sulfate 220 MG CAP PO SCH (09:56)
[2020-05-14] MEDS: Atorvastatin Calcium 40 MG TAB PO SCH (09:56)
[2020-05-14 09:57] VITALS: BP 125/65
[2020-05-14] MEDS: Stress 600 With Zinc 1 TAB PO SCH (09:57)
[2020-05-14] MEDS: Insulin Glargine 25 UNITS in Pre-Filled Syringe SC SCH (09:59)
[2020-05-14] MEDS: Cholecalciferol 1,000 UNITS (25 MCG) TAB PO SCH (10:02)
[2020-05-14] MEDS: Benzonatate 100 MG CAP PO SCH (10:02)
[2020-05-14] MEDS: Lorazepam 2 MG/ML VIAL SLOW IVP PRN ×3 (11:51→15:23)
[2020-05-14 13:14] VITALS: TEMP 97.2
--- NOTE | 2020-05-14 16:23 | PDOC.HOSPP ---
- Subjective Encounter Date: 05/14/20 Encounter Time: 16:22 non-verbal Subjective: Patient remains intubated. Family will terminally extubate her over the next 24 hours. Unfortunately it appears that Ms. Muse will succumb to her illness with the Covid. - Objective Vital Signs & Weight: Vital Signs (12 hours) Temp Pulse Resp BP Pulse Ox 05/14/20 14:38 119 H 05/14/20 14:00 18 05/14/20 13:31 119 H 18 73 L 05/14/20 12:00 97.2 F L 18 05/14/20 10:28 128 H 05/14/20 10:00 18 05/14/20 09:55 125/65 05/14/20 08:00 97.5 F L 18 82 L 05/14/20 07:58 120 H 25 H 82 L 05/14/20 07:57 125 H 05/14/20 06:00 98.3 F 24 H Weight Admit Weight 167 lb 9.6 oz Weight 167 lb 9.6 oz Most Recent Monitor Data Heart Rate from ECG 80 NIBP 49/37 NIBP BP-Mean 41 Respiration from ECG 16 SpO2 81 I&O: 05/13/20 05/14/20 05/15/20 06:59 06:59 06:59 Intake Total 1615 1196 Output Total 1265 1260 480 Balance 350 64 -952 Result Diagrams: 05/14/20 02:58 05/14/20 02:58 Additional Labs: Accuchecks 05/13/20 21:36 POC Glucose 166 H Radiology Reviewed by me: Yes EKG Reviewed by me: Yes Hospitalist ROS - Review of Systems ROS unobtainable: due to endotracheal tube Respiratory: reports: shortness of breath All other systems reviewed; all pertinent +/- noted in HPI/Subj - Medication Medications: Active Medications Generic Name Dose Route Start Last Admin Trade Name Freq PRN Reason Stop Dose Admin Albuterol/Ipratropium 3 ml 05/07/20 19:00 05/14/20 13:31 Ipratropium/Albuterol Sulfate 3 Ml Neb NEB 3 ml Q4CA-MT MADELINE Administration Ascorbic Acid 1,000 mg 05/01/20 09:00 05/14/20 09:56 Ascorbic Acid 500 Mg Chewable Tablet PO 1,000 mg DAILY MADELINE Administration Atorvastatin Calcium 40 mg 04/23/20 09:00 05/14/20 09:56 Atorvastatin Calcium 40 Mg Tab PO 40 mg DAILY MADELINE Administration Benzocaine 1 gm 04/29/20 02:47 05/01/20 08:25 Benzocaine (Dental) 20% 10 Gm Tube TOP 1 gm DAILYPRN PRN Administration Topical Anesthetic Benzonatate 100 mg 04/22/20 15:00 05/14/20 10:02 Benzonatate 100 Mg Cap PO 100 mg TID MADELINE Administration Cholecalciferol 2,000 units 04/25/20 09:00 05/14/20 10:02 Cholecalciferol 1,000 Units (25 Mcg) Tab PO 2,000 units DAILY MADELINE Administration Citalopram Hydrobromide 40 mg 04/23/20 09:00 05/14/20 09:55 Citalopram 20 Mg Tab PO 40 mg DAILY MADELINE Administration Clonidine 0.1 mg 05/02/20 08:58 05/05/20 09:11 Clonidine 0.1 Mg Tab PO 0.1 mg Q4H PRN Administration SBP GREATER THAN 160 Clonidine 0.1 mg 05/05/20 21:00 05/14/20 09:55 Clonidine 0.1 Mg Tab PO 0.1 mg BID MADELINE Administration Famotidine 20 mg 05/11/20 09:00 05/14/20 09:56 Famotidine 20 Mg Tab PER TUBE 20 mg BID MADELINE Administration Guaifenesin/Codeine Phosphate 10 ml 04/22/20 10:55 04/25/20 03:34 Guaifenesin/Codeine Phosphate 200 Mg/20 Mg 10 Ml Ud Cup PO 10 ml Q6H PRN Administration Cough Fentanyl Citrate 2,000 mcg/ 100 mls @ 0 mls/hr 05/05/20 14:30 05/14/20 09:36 Sodium Chloride IV 06/04/20 14:30 100 mls INF MADELINE Administration Protocol Per Protocol Insulin Glargine 25 units/ 0.25 mls @ 0 mls/hr 05/12/20 09:00 05/14/20 09:59 Miscellaneous Medication SC 0.25 mls QAM MADELINE Administration Insulin Human Lispro 0 units 04/24/20 22:15 05/13/20 22:46 Humalog 300 Units/3 Ml Vial SC 2 unit .BEDTIME SLIDING SC PRN Administration Bedtime Correctional Scale Insulin Human Lispro 0 units 05/12/20 18:35 05/13/20 04:57 Humalog 300 Units/3 Ml Vial SC 3 unit .AGGRESSIVE SLIDING PRN Administration Aggressive Correctional Scale Lorazepam 2 mg 05/05/20 14:30 05/14/20 15:23 Lorazepam 2 Mg/Ml Vial SLOW IVP 06/04/20 14:30 2 mg Q1H PRN Administration Breakthrough agitation Melatonin 6 mg 04/22/20 11:58 05/01/20 21:56 Melatonin 3 Mg Tab PO 6 mg DAILY PRN Administration Insomnia Metformin HCl 500 mg 04/22/20 21:00 05/14/20 09:56 Metformin 500 Mg Tab PO 500 mg BID MADELINE Administration Methylprednisolone Sodium Succinate 40 mg 05/13/20 17:00 05/14/20 05:32 Methylprednisolone Sod Succ 40 Mg Vial IVP 40 mg 0500,1700 MADELINE Administration Mometasone Furoate/Formoterol Fumar 2 puff 04/24/20 18:30 05/14/20 07:58 Mometasone 200 Mcg/Formoterol 5 Mcg 120 Puff Inhaler INH 2 puff BID-RT MADELINE Administration Morphine Sulfate 2 mg 05/05/20 14:30 05/14/20 15:23 Morphine 2 Mg/Ml Vial SLOW IVP 06/04/20 14:30 2 mg Q1H PRN Administration Breakthrough Pain/Agitation Multivitamins/Zinc 1 tab 04/23/20 09:00 05/14/20 09:57 Stress 600 With Zinc 1 Tab PO 1 tab DAILY MADELINE Administration Propofol 1,000 mg 05/05/20 14:30 05/14/20 11:22 Propofol 1,000 Mg/100 Ml Vial IV 06/04/20 14:30 1,000 mg INF PRN Administration TO ACHIEVE GOAL RASS Protocol Saccharomyces Boulardii 250 mg 04/29/20 09:00 05/14/20 09:55 Saccharomyces Boulardii 250 Mg Cap PO 250 mg DAILY MADELINE Administration Sodium Chloride 10 ml 04/24/20 21:00 05/14/20 09:57 Flush - Normal Saline 10 Ml Syringe IVF 10 ml Q12HR MADELINE Administration Zinc Sulfate 220 mg 04/23/20 09:00 05/14/20 09:56 Zinc Sulfate 220 Mg Cap PO 220 mg DAILY MADELINE Administration - Exam General Appearance: ill appearing ENT: normocephalic atraumatic, no oropharyngeal lesions Neck: supple, symmetric Heart: RRR, no murmur, no gallops, no rubs Respiratory: CTAB, no rales, normal chest expansion, wheezes Gastrointestinal: soft, non-tender, non-distended, normal bowel sounds Neurological: no new deficit Neurological - other findings: unable to examine as she is intubated Hosp A/P (1) Acute respiratory failure due to COVID-19 Code(s): U07.1 - COVID-19; J96.00 - ACUTE RESPIRATORY FAILURE, UNSP W HYPOXIA OR HYPERCAPNIA Status: Acute (2) COVID-19 Code(s): U07.1 - COVID-19 Status: Acute (3) Diabetes Code(s): E11.9 - TYPE 2 DIABETES MELLITUS WITHOUT COMPLICATIONS Status: Acute Qualifiers: Diabetes mellitus type: type 2 Diabetes mellitus complication status: without complication (4) Diarrhea Code(s): R19.7 - DIARRHEA, UNSPECIFIED Status: Resolved (5) History of lymphoma Code(s): Z85.79 - PRSNL HX OF [facility] NEOPLM OF LYMPHOID, HEMATPOETC & REL TISS Status: Chronic - Plan #1. Acute hypoxic respiratory failure secondary to Covid pneumonia. She currently is on high flow nasal cannula. We will continue this for now. Her prognosis is guarded at best. 04/24/2020. She remains on a high flow nasal cannula. She seems to be doing okay. We will continue this for now and wean as tolerated. 04/25/2020. Unfortunately it appears that she deteriorated earlier today and is now on BiPAP. We appreciate pulmonary for the ongoing help. 04/26/2020. She is on BiPAP alternating with high flow nasal cannula. We will continue this for now. 2. COVID-19 pneumonia. Continue supportive care, IV empiric antibiotics, zinc sulfate and vitamin C. 04/24/2020. We will continue empiric antibiotics. Continue supportive care for the Covid pneumonia. 04/25/2020. She continues to tolerate her antibiotics well. Cultures are negative to date. Continue supportive care as above. 3. History of chronic lymphocytic leukemia. This is chronic. She appears to be in remission.
--- NOTE | 2020-05-15 16:43 | PDOC.DS.DS ---
Provider - Provider Date of Admission: 04/22/20 03:42 Date of Discharge: 05/14/20 Admitting Provider: Marcos Jordan MD Consultations: Infectious Disease, Pulmonary Course - Hospital Course Hospital Course: This is a case of an unfortunate 70-year-old woman with a history of CLL who was admitted to the hospital with COVID-19 pneumonia. She had a rather prolonged and complicated hospital course. Initially she seemed to be doing well on admission tolerating O2 via nasal cannula but she started requiring high flow oxygen. Unfortunately she deteriorated rather quickly and was placed on a ventilator where she was for several days. Despite best that heroic efforts the patient unfortunately lost her daughter with COVID-19. She was pronounced on May 14, 2020 at 1536 PM. Final cause of : COVID-19 virus pneumonia. - Labs Lab Results: 05/14/20 02:58 05/14/20 02:58 Abnormal Lab Results - Last 48 hrs 05/14/20 02:58: WBC 3.5 L, RBC 2.38 L, Hgb 8.4 L, Hct 24.7 L, MCV 104.0 H, MCH 35.3 H, Plt Count 28 L*, MPV 11.6 H, Neutrophils % 93.1 H, Lymphocytes % 2.9 L, Lymphocytes # 0.1 L, Monocytes # 0.1 L 05/14/20 02:58: Carbon Dioxide 32 H, BUN 28 H, Creatinine 0.55 L, AST 36 H, Serum Total Protein 4.9 L, Albumin 2.5 L, Albumin/Globulin Ratio 1.0 L 05/14/20 07:22: Bicarbonate Actual 32.4 H, ABG pCO2 51.6 H, ABG pO2 49.5 L*, ABG O2 Sat (Measured) 84.7 L*, ABG O2 Content 11.3 L, ABG Base Excess 6.9 H, ABG Hematocrit 28.0 L, ABG Hemoglobin 9.6 L, ABG Oxyhemoglobin 83.5 L, ABG Deoxyhemoglobin 15.1 H, A-a O2 Gradient 599.000 H, Potassium 3.50 L Microbiology - Entire Visit 04/23/20 23:40 Stool Escherichia coli 0157 Culture - Final 04/23/20 23:40 Stool C. difficile GDH Antigen & Toxins - Final - Physical Exam Vitals: Weight Admit Weight 167 lb 9.6 oz Weight 167 lb 9.6 oz Most Recent Monitor Data Heart Rate from ECG 80 NIBP 49/37 NIBP BP-Mean 41 Respiration from ECG 16 SpO2 81 Physical Exam: The patient was seen and examined on the day of discharge. Problem - Problem (1) Acute respiratory failure due to COVID-19 Code(s): U07.1 - COVID-19; J96.00 - ACUTE RESPIRATORY FAILURE, UNSP W HYPOXIA OR HYPERCAPNIA Status: Acute (2) COVID-19 Code(s): U07.1 - COVID-19 Status: Acute (3) Diabetes Code(s): E11.9 - TYPE 2 DIABETES MELLITUS WITHOUT COMPLICATIONS Status: Acute Qualifiers: Diabetes mellitus type: type 2 Diabetes mellitus complication status: without complication (4) History of lymphoma Code(s): Z85.79 - PRSNL HX OF MALIG NEOPLM OF LYMPHOID, HEMATPOETC & REL TISS Status: Chronic Plan - Discharge Medications Home Medications: Medication Instructions Recorded Confirmed Type Ascorbic Acid [Vitamin C] 1 tab PO DAILY 04/22/20 04/22/20 History Atorvastatin Calcium [Lipitor] 1 tab PO DAILY 04/22/20 04/22/20 History Biotin 1 tab PO DAILY 04/22/20 04/22/20 History Citalopram [CeleXA] 2 tab PO DAILY 04/22/20 04/22/20 History Melatonin 1 tab PO DAILY PRN 04/22/20 04/22/20 History Vitamin B Complex [B Complex] 1 tab PO DAILY 04/22/20 04/22/20 History metFORMIN [Glucophage] 1 tab PO BID 04/22/20 04/22/20 History Allergies: No Known Drug Allergies Allergy (Verified 04/23/20 22:49) PER ER NOTES - Discharge Instructions Therapies:: Not Applicable Equipment/Supplies:: Not Applicable IV Therapy:: Not Applicable - Follow up Plan Disposition: Quality - Care Measures CORE MEASURES:: N/A
--- NOTE | 2020-05-17 03:50 | PQF ---
Dear : Hari Dimas Date 05/17/2020 Please exercise your independent, professional judgment in responding to the clarification form. Clinical indicators are provided on the bottom of this form for your review Can you please further clarify the diagnosis of the patient? Please check appropriate box(es): [ ] Sepsis due to: Severe COVID19 Pneumonia [ ] Severe sepsis with associated acute organ dysfunction: [ ] Acute Respiratory Failure [ ] Encephalopathy (metabolic) (septic) [ ] Septic Shock [ x ] Localized infection without sepsis [ ] Other diagnosis please specify [ ] Unable to determine In addition, please specify: Present on Admission (POA): [ ] Yes [ ] No [ ] Unable to determine Physician Signature: Date/Time: For continuity of documentation, please document condition throughout progress notes and discharge summary. Thank You. To be completed by CDI/Coding staff for physician review: Present Clinical Indicators - Signs / Symptoms / Labs Results and Location in Medical Record [ x ] Coughing, SOB, fever, body aches, chills for 2 to 3 days ED Provider pg.1 [ x ] Pulse: tachycardic ED Provider pg.2 [ x ] Noted to be hypoxic H and P pg.1 [ x ] Acute respiratory failure due to COVID19 H and P pg.3 [ x ] She was tachypneic Consult pg.1 [ x ] WBC: 3.6L, 3.9L, 3.6L, 4.2L Laboratory [ x ] Xray still shows bilateral infiltrates PN 05/11 pg.1 [ x ] Encephalopathy PN 05/11 pg.1 [ x ] Temp=98.3 Pulse=72 CG=741/69 Respi=26 Vital Signs 04/22 [ x ] Lactic=1.9 Laboratory 04/22 [ x ] Procalcitonin=0.02 Laboratory 04/28 Present Risk Factors Results and Location in Medical Record [ x ] COVID pneumonia ED Provider pg.1 [ x ] 70 years old ED Provider pg.1 [ x ] Lymphoma ED Provider pg.1 [ x ] DM HP 04/22 Present Treatments Results and Location in Medical Record [ x ] Infectious Consult Dr. Phillip [ x ] Chest Xray Chest Xray 04/25 [ x ] IV Fluids MAR [ x ] Isolation H and P [ x ] Pulmonary Consult Almanza 04/24 [ x ] Azithromycin 500mg IV MAR [ x ] Zosyn 3.375gm IV MAR [ x ] Remdesivir 200mg MAR [ x ] Dexamethasone 6mg IV MAR [ x ] Convalescent Plasma Blood bank [ x ] Cefepime 1gm IV MAR CDS/Paper Bag Machine Operator Signature: Parvez Carter Phone #: ext [phone] Date 05/17/20 This is a permanent part of the Medical Record [facility]
== END 2020-05-14 19:19 | disposition expired | DRG 207 ==
LOC: ERS 00:24 → T4-B 03:42 → IMCU/EMU 21:15 → CCU 05-05 13:50
PROVIDERS: ADMIT Internal Medicine Critical Care Medicine; ATTEND Hospitalist
PROC: 8E0ZXY6 Isolation (ICD-10-PCS; 2020-04-22)
PROC: XW033E5 Introduction of Remdesivir Anti-infective into Peripheral Vein, Percutaneous Approach, New Technology Group 5 (ICD-10-PCS; 2020-04-23)
PROC: XW13325 Transfusion of Convalescent Plasma (Nonautologous) into Peripheral Vein, Percutaneous Approach, New Technology Group 5 (ICD-10-PCS; 2020-04-24)
PROC: 5A09557 Assistance with Respiratory Ventilation, Greater than 96 Consecutive Hours, Continuous Positive Airway Pressure (ICD-10-PCS; 2020-04-25)
PROC: 5A1955Z Respiratory Ventilation, Greater than 96 Consecutive Hours (ICD-10-PCS; principal; 2020-05-05)
PROC: 0BH17EZ Insertion of Endotracheal Airway into Trachea, Via Natural or Artificial Opening (ICD-10-PCS; 2020-05-05)
DX: U07.1 COVID-19 (principal); J12.89 Other viral pneumonia; J96.01 Acute respiratory failure with hypoxia; J80 Acute respiratory distress syndrome; Z94.81 Bone marrow transplant status; G93.40 Encephalopathy, unspecified; Z66 Do not resuscitate; Z51.5 Encounter for palliative care; E11.9 Type 2 diabetes mellitus without complications; E87.6 Hypokalemia; E78.00 Pure hypercholesterolemia, unspecified; R19.7 Diarrhea, unspecified; E78.5 Hyperlipidemia, unspecified; D69.6 Thrombocytopenia, unspecified; M41.9 Scoliosis, unspecified; Z85.79 Personal history of other malignant neoplasms of lymphoid, hematopoietic and related tissues; Z79.84 Long term (current) use of oral hypoglycemic drugs; Z79.899 Other long term (current) drug therapy
CPT/HCPCS: 36415; 36416; 36430; 36600; 71045; 71275; 80048; 80053; 82728; 82805; 83605; 83735; 83880; 84145; 84484; 85025; 85379; 86140; 86850; 86900; 86901; 87081; 87324; 87449; 93005; 94002; 94003; 94640; 94660; 94760; 96365; 96366; C9113; J0456; J0692; J1100; J1650; J1815; J1940; J2060; J2270; J2543; J2704; J2920; J3010; J3490; J7050; J7620; P9017; Q9967; S0028; U0002